=== PATIENT | female | born 1980 | race Caucasian/White ===

== ENCOUNTER → 2023-06-11 15:25 | Outpatient (BNVA) | payer BC, SELFPAY | PROVIDERS: Visit Provider Surgery ==

== ENCOUNTER 2023-08-07 07:51 | Outpatient (AMB) | payer BC, SELFPAY ==
--- OUTSIDE RECORDS SUMMARY | 2023-08-07 07:53 | XMS_ITS | Continuity of Care Document ---
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 Name Role Phone Jannette MONTESINOS, Darwin Primary Care Physician [place] [facility] [place]23 - 03/25/23 [facility] [address] [place] [address]- Attending Physician: Jerson PAREDES, Leonila Pimentel Admitting Physician: Jerson PAREDES, Leonila Pimentel Referring Physician: Renny MONTESINOS, Jania Allergies, Adverse Reactions, Alerts Substance Reaction Severity Status penicillin Active penicillins Active Immunizations Given and Recorded Vaccine Date Status Refusal Reason Boostrix (Tdap) (oldterm) 01/16/16 Given Medications Clindamycin Capsule 150 mg, By Mouth, 4 times a day, Maintenance, 04/05/16 10:54:20 Start Date: 04/05/16 Status: Ordered Colace sodium 100 mg oral capsule 100 mg, 1, capsule, By Mouth, 2 times a day, PRN, # 60 capsule, Refills 0, Tot. Refills 0, Maintenance, for constipation, 03/31/16 7:29:02, Print Requisition Start Date: 03/31/16 Status: Ordered Labetalol = 200 mg, 2 times a day, 0 Refills, Maintenance, 04/05/16 10:53:43 Start Date: 04/05/16 Status: Ordered levothyroxine 75 mcg (0.075 mg) oral tablet 1 tablet = 75 mcg, By Mouth, Daily, # 90 tablet, 0 Refills, Maintenance, 01/16/16 8:45:50, Tablet Start Date: 01/16/16 Status: Ordered Multivitamin, By Mouth, 0 Refills, Maintenance, 01/16/16 8:45:23 Start Date: 01/16/16 Status: Ordered NuvaRing 0.015 mg-0.120 mg vaginal ring 1, each, Vaginally, Every 21 days, # 1 each, Refills 11, Tot. Refills 11, 06/30/08 11:21:46 Start Date: 06/30/08 Status: Ordered NuvaRing 0.015 mg-0.120 mg vaginal ring See Instructions, 1, each, 11, 1, 24, 05/22/08 15:59:49, 05/20/07 16:17:09, 1 each Vaginally every 4 weeks, Print GILLIAN Number, [facility]-Jesica Navarro BOWLING BALL MOLDER [address] [place] [address], Constant Indicator Start Date: 05/20/07 Status: Ordered One Touch Delica Lancets See Instructions, # 1 box, Refills 5, Tot. Refills 5, Maintenance, 1 box = 100 lancets Blood sugar testing four times a day., 01/16/16 14:15:00, Compound Start Date: 01/16/16 Status: Ordered OneTouch Verio Test Strips See Instructions, # 1 box, Refills 5, Tot. Refills 5, Maintenance, 1 box = 100 test strips Blood sugar testing four times a day., 01/16/16 14:15:00, Compound Start Date: 01/16/16 Status: Ordered Spironolactone By Mouth, 0 Refills, Maintenance, 03/04/23 15:22:00 EST, Partial fill upon patient request if the prescription is for a schedule II opioid drug. Start Date: 03/04/23 Status: Ordered Problem List Condition Confirmation Course Effective Dates Status Health St atus Informant Severe obesity Confirmed Active Social History Social History Type Response Smoking Status Never smoker; Tobacc o user in household: No; Type: Cigarettes entered on: 01/16/16 Sex Patient Care team information Care Team Personnel Name: Jannette MONTESINOS, Darwin Position: Reference Physician Member Role: PCP Address: Address: [address] [facility] [place] [address]- Care Team Related Persons Name: EDGARD ORR Address: home [address] [place] [address]
--- OUTSIDE RECORDS SUMMARY | 2023-08-07 07:53 | XMS_ITS | Continuity of Care Document ---
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 Name Role Phone Jannette MONTESINOS, Darwin Primary Care Physician Encounter [facility] [place] Date(s): 03/04/23 - 04/03/23 [facility] [address] [facility] [place] [address]- Attending Physician: Tiana Riggs Admitting Physician: AdmTiana barajas Referring Physician: AdmtrTiana Allergies, Adverse Reactions, Alerts Substance Reaction Severity [...] Vaginally every 4 weeks, Print GILLIAN Number, [facility]-Jesica Navarro VICTORIAN LITERATURE PROFESSOR [address] [place] [address], Constant Indicator Start Date: 05/20/07 Status: Ordered [...] PCP Address: Address: [address] [facility] [place] [address]- Care Team Related Persons Name: EDGARD ORR Address: home [address] [place] [address]
--- NOTE | 2023-08-07 08:14 | A.OFFVIS_ITS ---
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: Details: Start time: 8.08am, End time: 8.48am ?I spent 35 minutes speaking with the patient on the phone plus an additional 5 minutes reviewing and updating records for a total of 40 minutes HPI Comments Details: Previous weight loss efforts: Nutrisystem (100lbs), Weight Watchers, low carb diet Wakes up: 5.45am, Sleeps: 10pm Breakfast: 6.30am (egg sandwich) Lunch: 11am (salad, yogurt, cheese stick) Dinner: 5.30pm (pasta, burgers, take-out often) Snacks: 3-4pm (snack wrap, or cookies), 7pm (ice cream, chips) Exercise: has home treadmill Fluids: Coffee: none, tea: black (1 cup/day), soda: none, juice: none, ETOH: rarely PFSH Medical History (Updated 08/07/23 @ 08:17 by Hair Tao MD) Hypothyroidism Sleep apnea treated with continuous positive airway pressure (CPAP) Hypertension Morbid obesity Surgical History (Updated 08/07/23 @ 08:17 by Hair Tao MD) History of delivery Hx of oral surgery Family History (Updated 06/11/23 @ 15:38 by Irina Jackson CMA) Mother Hypertension Obesity Father No problems noted. Son No problems noted. Physical Exam Vital Signs: BMI result Body Mass Index 74.5 Telehealth Telehealth Telehealth Platform: Telephone Location of provider rendering services: practice address Location of patient: address on file Patient Identification confirmed using: Name, : Yes Telehealth method: voice only Patient verbally consented to treatment: Yes Patient verbally consented to billing insurance company: Yes Patient informed of any privacy concerns related to visit: Yes Minutes spent on Phone/Video with Pt.: 40 Assessment & Plan Assessment & Plan (1) Morbid obesity: Code(s): E66.01 - Morbid (severe) obesity due to excess calories Category: Medical Plan: 1.? Plan for lap sleeve gastrectomy. If diaphragmatic or ventral hernias are present at time of surgery, these will be repaired laparoscopically as well. Risks and complications include possible conversion to an open procedure, anastomotic leak, bleeding requiring transfusion, small bowel obstruction, , DVT and pulmonary embolism, cardiac, or pulmonary complications, as halfway complications such as anastomotic ulcer, insufficient weight loss and vitamin deficiencies. I emphasized the importance of close follow-up, adherence to instructions and good communication. 2. You will receive a link of our software jeffy to generate an individualized nutritional and exercise plan specific for you. Please send me a screenshot of the plans you will generate Meal to include lean meat (beef, fish, pork, turkey, chicken), or slovak yogurt, or egg whites, or beans with a salad with olive oil and fruits (berries, pears, apples, kiwi). Avoid salt, breads, potatoes, rice, pasta, desserts. ?3. If you choose shakes, each shake would be drunk slowly, like coffee in a period of 2 hours. ?4. If you choose bars, cut each bar in 4 pieces and eat each piece in 30min ?to make each bar last 2 hours. ?5. I emphasized the importance of measuring accurately the food portion and measure it when serving the food in plate ?6. The meal portions include a specific number of forks of meat and salad. You always eat the meat portion but you can replace up to half of salad/vegetables portion with rice, potatoes or pasta, or a fruit ?if you like. The less you do it the better weight loss will be. ?7. One full-size fork is what it can be scooped on the fork without falling aside and not what can be bit with the fork. Use regular forks like those you find in a typical restaurant. ?8.? Please send me weight measurements as soon as possible and then once a week. Always include your diet and exercise plan. 9. The best choice would be to purchase a stationary bike, elliptical or treadmill at home that can track calories. Let me know if you do so I can give you an exercise plan. ?10.?It is important of avoiding and for at least 18 months postoperatively and has been discussed at the infosession. ?11. Goal is to lose at least 1.5-2lbs per week ?12. Goal to lose 10% of your weight before surgery, which is about 42lbs. Ultimate weight goal: 378lbs before surgery 13. Please follow the diet plan exactly without any change. If you don't like something about the plan or you feel hungry you need to communicate with me so I can help you revise the plan. You should not change the plan yourself. 14. To be scheduled for EGD to assess your stomach's anatomy. The possibility of biopsies was discussed. Patient needs to avoid use of NSAIDs and aspirin for 1 week prior to EGD. Risks of perforation and? bleeding was discussed with the patient. This will be an outpatient procedure with IV sedation. Orders: Orders Insulin Today E03.9 - Hypothyroidism, unspecified, E66.01 - Morbid (severe) obesity due to excess calories, G47.30 - Sleep apnea, unspecified, I10 - Essential (primary) hypertension H Pylori Breath Test Today E03.9 - Hypothyroidism, unspecified, E66.01 - Morbid (severe) obesity due to excess calories, G47.30 - Sleep apnea, unspecified, I10 - Essential (primary) hypertension IRON PROFILE Today E03.9 - Hypothyroidism, unspecified, E66.01 - Morbid (severe) obesity due to excess calories, G47.30 - Sleep apnea, unspecified, I10 - Essential (primary) hypertension Vitamin B12 and Folate Today E03.9 - Hypothyroidism, unspecified, E66.01 - Morbid (severe) obesity due to excess calories, G47.30 - Sleep apnea, unspecified, I10 - Essential (primary) hypertension Zinc Today E03.9 - Hypothyroidism, unspecified, E66.01 - Morbid (severe) obesity due to excess calories, G47.30 - Sleep apnea, unspecified, I10 - Essential (primary) hypertension C Reactive Protein Today E03.9 - Hypothyroidism, unspecified, E66.01 - Morbid (severe) obesity due to excess calories, G47.30 - Sleep apnea, unspecified, I10 - Essential (primary) hypertension Vitamin B1 Today E03.9 - Hypothyroidism, unspecified, E66.01 - Morbid (severe) obesity due to excess calories, G47.30 - Sleep apnea, unspecified, I10 - Essential (primary) hypertension Vitamin A Today E03.9 - Hypothyroidism, unspecified, E66.01 - Morbid (severe) obesity due to excess calories, G47.30 - Sleep apnea, unspecified, I10 - Essential (primary) hypertension Ferritin Today E03.9 - Hypothyroidism, unspecified, E66.01 - Morbid (severe) obesity due to excess calories, G47.30 - Sleep apnea, unspecified, I10 - Essential (primary) hypertension Vitamin D 25-OH Total Today E03.9 - Hypothyroidism, unspecified, E66.01 - Morbid (severe) obesity due to excess calories, G47.30 - Sleep apnea, unspecified, I10 - Essential (primary) hypertension US abdomen comp w elastography Today E03.9 - Hypothyroidism, unspecified, E66.01 - Morbid (severe) obesity due to excess calories, G47.30 - Sleep apnea, unspecified, I10 - Essential (primary) hypertension XR chest 2V Today E03.9 - Hypothyroidism, unspecified, E66.01 - Morbid (severe) obesity due to excess calories, G47.30 - Sleep apnea, unspecified, I10 - Essential (primary) hypertension ECG 12 lead EKG Today E03.9 - Hypothyroidism, unspecified, E66.01 - Morbid (severe) obesity due to excess calories, G47.30 - Sleep apnea, unspecified, I10 - Essential (primary) hypertension FL upper GI w air Today E03.9 - Hypothyroidism, unspecified, E66.01 - Morbid (severe) obesity due to excess calories, G47.30 - Sleep apnea, unspecified, I10 - Essential (primary) hypertension Hemoglobin A1c Today E03.9 - Hypothyroidism, unspecified, E66.01 - Morbid (severe) obesity due to excess calories, G47.30 - Sleep apnea, unspecified, I10 - Essential (primary) hypertension Complete Blood Count Auto Diff Today E03.9 - Hypothyroidism, unspecified, E66.01 - Morbid (severe) obesity due to excess calories, G47.30 - Sleep apnea, unspecified, I10 - Essential (primary) hypertension Lipid Panel Today E03.9 - Hypothyroidism, unspecified, E66.01 - Morbid (severe) obesity due to excess calories, G47.30 - Sleep apnea, unspecified, I10 - Essential (primary) hypertension Comprehensive Met. Panel Today E03.9 - Hypothyroidism, unspecified, E66.01 - Morbid (severe) obesity due to excess calories, G47.30 - Sleep apnea, unspecified, I10 - Essential (primary) hypertension TSH reflex Free T4 Today E03.9 - Hypothyroidism, unspecified, E66.01 - Morbid (severe) obesity due to excess calories, G47.30 - Sleep apnea, unspecified, I10 - Essential (primary) hypertension Referrals Nutrition/Dietitian Referral E03.9 - Hypothyroidism, unspecified, E66.01 - Morbid (severe) obesity due to excess calories, G47.30 - Sleep apnea, unspecified, I10 - Essential (primary) hypertension Behavioral Health Referral E03.9 - Hypothyroidism, unspecified, E66.01 - Morbid (severe) obesity due to excess calories, G47.30 - Sleep apnea, unspecified, I10 - Essential (primary) hypertension
[2023-08-07 08:24] VITALS: BMI 74.5
== END 2023-08-07 08:48 | disposition home or self-care (01) ==
LOC: HO.HBS 07:51
PROVIDERS: Visit Provider Surgery
DX: E66.01 Morbid (severe) obesity due to excess calories (principal); Z68.45 Body mass index [BMI] 70 or greater, adult
CPT/HCPCS: 99443

== ENCOUNTER → 2023-08-07 07:51 | Outpatient (BNVA) | payer BC, SELFPAY | PROVIDERS: Visit Provider Surgery ==

== ENCOUNTER 2023-08-12 08:50 | Outpatient (REF) | payer BC, SELFPAY ==
--- NOTE | ~2023-08-12 | XR_ITS ---
EXAMINATION: XR CHEST CLINICAL INFORMATION: Morbid obesity. COMPARISON: None available. TECHNIQUE: 2 views of the chest were obtained. FINDINGS: There is abnormal soft tissue density overlying the left lung apex and suprahilar region. This is likely related to the patient's hair braid which can be partially seen overlying the chest. Otherwise, the chest is unremarkable. Some mild degenerative changes are present in the spine. XR/XR chest 2V IMPRESSION: No acute intrathoracic disease. Abnormal soft tissue density overlying the left lung apex and suprahilar region. This is likely related to the patient's hair braid. A repeat PA view of the chest without overlying hair is recommended to exclude underlying malignancy.
[2023-08-12 09:12] LABS: MANUAL DIFF FLAG NO
--- NOTE | 2023-08-12 09:17 | ECG_ITS ---
Test Reason : MORBID OBESITY Blood Pressure : / mmHG Vent. Rate : 085 BPM Atrial Rate : 085 BPM P-R Int : 168 ms QRS Dur : 080 ms QT Int : 372 ms P-R-T Axes : 053 009 046 degrees QTc Int : 442 ms Normal sinus rhythm Normal ECG No previous ECGs available Referred By: Hair Tao Electronically Signed By:CAMERON GA MD
[2023-08-12 09:41] LABS: Basophils Absolute Auto 0.1 X10*3/uL (0.0-0.2); Basophils Percent Auto 0.8 % (0-2); Eosinophils Absolute Auto 0.2 X10*3/uL (0.0-0.4); Eosinophils Percent Auto 1.2 % (0-4); Hematocrit 39.6 % (37.0-47.0); Hemoglobin 13.2 g/dl (12.0-16.0); Imm Gran Abs Auto 0.16 X10*3/uL (0.00-0.03); Imm Gran Pct Auto 1.2 % (0.0-0.4); Lymphocytes Absolute Auto 3.5 X10*3/uL (1.2-4.9); Lymphocytes Percent Auto 26.8 % (20-40); Mean Corpuscular HGB Conc 33.3 g/dl (31.0-35.0); Mean Corpuscular Hemoglobin 29.8 pg (27.0-33.0); Mean Corpuscular Volume 89.4 fL (80.0-98.0); Monocytes Absolute Auto 0.8 X10*3/uL (0.1-1.2); Monocytes Percent Auto 5.9 % (2-11); Neutrophils Absolute Auto 8.3 x10*3/uL (2.0-8.3); Neutrophils Percent Auto 64.1 % (45-73); Platelet Count 281 X10*3/uL (160-400); Red Blood Count 4.43 X10*6/uL (4.20-5.50); Red Cell Distribution Width 13.2 % (11.0-16.0); White Blood Count 12.9 X10*3/uL (4.8-10.8)
[2023-08-12 09:43] LABS: Estimated Average Glucose 114 mg/dL; Hemoglobin A1c % 5.6 % (<6.0)
[2023-08-12 10:14] LABS: Alanine Aminotransferase 20 U/L (0-31); Albumin Level 4.4 g/dL (3.5-5.0); Alkaline Phosphatase 82 U/L (39-117); Anion Gap 18 (12-20); Aspartate Amino Transferase 17 U/L (5-31); Bilirubin Total 0.6 mg/dL (0.0-1.0); Blood Urea Nitrogen 18 mg/dL (9-16); C Reactive Protein 1.04 mg/dL (< or = 0.50); Carbon Dioxide 25 mmol/L (22-29); Chloride 103 mmol/L (96-108); Cholesterol 222 mg/dL (<200); Estimated Glomerular Filt Rate > 60; Glucose Random 119 mg/dL (60-115); HDL Cholesterol 41 mg/dL (>40); Iron 63 mcg/dL (30-160); LDL Cholesterol Calculated 153 mg/dL (<100); Percent Iron Saturation 23 % (15-50); Potassium 4.5 mmol/L (3.3-5.1); Sodium 141 mmol/L (135-145); Total Iron Binding Capacity 280 mcg/dL (228-428); Total Protein 8.3 g/dL (6.5-8.0); Triglycerides 141 mg/dL (<150); Unsaturated Iron Binding 217 ug/dL
[2023-08-12 10:41] LABS: Ferritin 174 ng/mL (10-250); TSH reflex Free T4 2.42 uIU/mL (0.32-4.0); Vitamin D 25-OH Total 21.9 ng/mL (>30)
[2023-08-12 11:04] LABS: Insulin 21 uU/mL (2-29)
[2023-08-12 11:08] LABS: Vitamin B12 369 pg/mL (200-900)
[2023-08-15 18:47] LABS: Zinc 71 mcg/dL (60-130)
[2023-08-16 18:48] LABS: Vitamin A 37 mcg/dL (38-98)
[2023-08-20 14:33] LABS: Vitamin B1 12 nmol/L (8-30)
== END 2023-08-12 08:51 | disposition home or self-care (01) ==
LOC: HO.LAB 08:50
PROVIDERS: PCP Internal Medicine; Visit Provider Surgery
DX: E66.01 Morbid (severe) obesity due to excess calories (principal); I10 Essential (primary) hypertension; G47.30 Sleep apnea, unspecified; E03.9 Hypothyroidism, unspecified
CPT/HCPCS: 36415; 71046; 80053; 80061; 82306; 82607; 82728; 82746; 83036; 83525; 83540; 84425; 84443; 84590; 84630; 85025; 86140; 93005

== ENCOUNTER → 2023-08-12 09:17 | Outpatient (BNV) | payer BC, SELFPAY | PROVIDERS: PCP Internal Medicine; Visit Provider Internal Medicine Cardiovascular Disease | DX: E66.01 Morbid (severe) obesity due to excess calories (principal); Z01.810 Encounter for preprocedural cardiovascular examination | CPT/HCPCS: 93010 ==

== ENCOUNTER 2023-08-26 08:08 | Outpatient (REF) | payer BC, SELFPAY ==
--- NOTE | ~2023-08-26 | US_ITS ---
EXAMINATION: US COMPLETE ABDOMEN WITH LIVER ELASTOGRAPHY CLINICAL INFORMATION: Morbid obesity. COMPARISON: None available. TECHNIQUE: Real-time imaging of the abdominal viscera. Noninvasive ultrasound liver fibrosis assessment is performed using Reggie ElastPQ point quantification shear wave elastography (2D-SWE) with a C5-2 MHz transducer. Multiple elastography samples are obtained. FINDINGS: PANCREAS: . The visualized pancreatic head and body are normal in appearance. The remainder of the pancreas is obscured from visualization by the overlying bowel gas. ABDOMINAL AORTA: The proximal, middle, and distal aortic segments are normal in caliber. INFERIOR VENA CAVA: Visualized portions are normal. LIVER: . The liver is enlarged with increased echogenicity measuring 22.3 cm in greatest length. No focal lesion or intrahepatic biliary duct dilatation. The right lobe measures 22.3 cm in length. The left lobe measures 15.9 cm in length. Portal flow is towards the liver (hepatopetal). Shear wave liver elastography median stiffness is 1.24 m/s (reference: normal median stiffness is 1.3 m/s or less). IQR/median stiffness to assess sampling precision is 0.17 (reference: good quality data set is IQR/median stiffness of 0.15 or less). GALLBLADDER: The gallbladder appears to be filled with stones as only shadowing is seen in the region of the gallbladder fossa without a gallbladder identified. COMMON BILE DUCT: Normal in caliber measuring 0.5 cm in diameter. RIGHT KIDNEY: No hydronephrosis. No renal calculi or focal parenchymal lesions. The kidney measures 14.0 cm in maximum dimension. LEFT KIDNEY: No hydronephrosis. No renal calculi or focal parenchymal lesions. The kidney measures 13.3 cm in maximum dimension. SPLEEN: Normal. The spleen is enlarged measuring 11.5 cm in maximum dimension. FREE FLUID: None. US/US abdomen comp w elastography IMPRESSION: 1. Enlarged fatty liver. 2. Liver elastography: Although measurements suggest a high probability of normal liver stiffness, there is statistical variability of the sampling which decreases accuracy. REFERENCE: Society of Radiologists in Ultrasound Liver Stiffness Thresholds (2019): LIVER STIFFNESS THRESHOLDS: *Liver Stiffness equal or less than 1.3 m/s: High probability of being normal. *Liver Stiffness less than 1.7 m/s: In the absence of other known clinical signs, rules out compensated advanced chronic liver disease. *Liver Stiffness 1.7-2.1 m/s: Suggestive of compensated advanced chronic liver disease but need further test for confirmation. *Liver Stiffness over 2.1 m/s: Rules in compensated advanced chronic liver disease. *Liver Stiffness over 2.4 m/s: Suggestive of clinically significant portal hypertension. QUALITY OF DATA SET: *IQR/Median value equal or less than 0.15 implies a quality data set. *IQR/Median value over 0.15 implies a poor quality data set. SIGNIFICANT CHANGE FROM PRIOR EXAM: Significant change if liver stiffness measurement is 10% or greater from prior exam. OTHER CONSIDERATIONS: The stage of liver fibrosis may be overestimated in the setting of acute hepatitis, liver inflammation, elevated liver function tests, hepatic vascular congestion, obstructive cholestasis, non-fasting state, and infiltrative diseases such as amyloidosis and lymphoma. In some patients with NAFLD, the liver stiffness thresholds for compensated advanced chronic liver disease may be lower. In causes other than viral hepatitis and NAFLD, liver stiffness thresholds are not well established.
== END 2023-08-26 08:09 | disposition home or self-care (01) ==
LOC: HO.US 08:08
PROVIDERS: PCP Internal Medicine; Visit Provider Surgery
DX: E66.01 Morbid (severe) obesity due to excess calories (principal); I10 Essential (primary) hypertension; E03.9 Hypothyroidism, unspecified; G47.30 Sleep apnea, unspecified
CPT/HCPCS: 76700; 76981

== ENCOUNTER 2023-08-31 14:10 | Outpatient (AMB) | payer BC, SELFPAY ==
--- NOTE | 2023-08-31 13:06 | MHC.WMTHER ---
Intake Intake Visit Reasons: (TV) BH Intake Allergies Penicillins Allergy (Mild, Verified 08/07/23 08:14) rash REPLACED BY [facility] Medical History (Updated 08/18/23 @ 17:33 by Hair Tao MD) Hypothyroidism Sleep apnea treated with continuous positive airway pressure (CPAP) Hypertension Morbid obesity Surgical History (Updated 08/07/23 @ 08:17 by Hair Tao MD) History of delivery Hx of oral surgery Family History (Updated 06/11/23 @ 15:38 by Irina Jackson CMA) Mother Hypertension Obesity Father No problems noted. Son No problems noted. Behavioral Health Assessment Weight Management Therapy Therapy Notes Details Patient is looking to have weight loss surgery to help improve her health and quality of life. She reported one appointment in the past with a therapist and no mental health history. She denied a history of problems with drugs or alcohol. No legal issues and no eating disorder symptoms. Presenting Concerns Referral Source provider Reason for referral weight loss surgery evaluation Precipitating Event obesity Living Situation Current Living Situation Own At risk of losing current housing? No Satisfied with current living situation? Yes Comments Patient lives with her and 7 year old son. Food/Weight/Diet Expectations of change weight loss and maintenance History/Relationship with food Patient stated that she uses food for reward, will often go with what is convenient such as takeout or going to restaurants, also would under eat during the day at work and then would go home and be ravenous . Breakfast sandwiches from [employer] or frozen ones she would buy, premade salads and yogurt, after work would stop at [employer] again for snack wrap and donut, or chips at home, then dinner would be takeout, sometimes would snack before bed on chips or ice cream. History/Relationship with weight Pt was at her heaviest one month ago. She reported that she has struggled with weight gain since she hit puberty. History/Relationship with dieting 95lbs on Nutrisystem before she had her son. Binge Eating Do you frequently eat large amounts of food in short periods of time, not feeling physically hungry? No Do you feel out of control when you eat a large amount of food in a short period of time? No Do you eat large amounts of food rapidly and typically alone? No Night Eating Do you wake up at least once during the night to eat? No If you wake up in the night, do you find that it is necessary to eat something in order to fall back asleep? No Do you have little or no appetite in the morning and feel very hungry in the evening, often overeating between dinner and when you go to bed? No Social History Family history and relationship Patient is and has one child who is 7 years old. Parental/Familial farm or ranch animal caretaker obligations 7 year old son Developmental history and status no issues Social support , sister, mom (who has had weight loss surgery). Cultural/Ethnic information Legal Involvement and History Current or historical involvement with the legal system? none Education Highest grade completed college Preferred learning style Auditory, Verbal, Written, Learn by doing and Visual Currently enrolled in educational program? No Interested in further educational program? 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 No Financial Situation Describe current financial situation Comfortable Financial assistance? None Service Service? No Mental Health and Addiction Treatment Current/Past substance abuse? No Comments n/a Current/Past addictive behavior concerns? No Psychiatric history n/a Medical and Physical Health Summary Physical exam in the last year? Yes Pain Screening Current pain? No Pain in the last few months? No Medications Is the patient compliant with medications? Yes Does the patient have Ferreira Guardian in place? Not applicable Does the patient use complimentary health approaches? Yes Trauma/Abuse History History of trauma? No Questionnaires PHQ-9 Over the last 2 weeks, how often have you been bothered by any of the following problems? 1. Little interest or pleasure in doing things: several days 2. Feeling down, depressed, or hopeless: several days 3. Trouble falling or staying asleep, or sleeping too much: not at all 4. Feeling tired or having little energy: more than half the days 5. Poor appetite or overeating: nearly every day 6. Feeling bad about yourself - or that you are a failure or have let yourself or your family down: not at all 7. Trouble concentrating on things, such as reading the newspaper or watching television: not at all 8. Moving or speaking so slowly that other people could have noticed. Or the opposite - being so fidgety or restless that you have been moving around a lot more than usual: not at all 9. Thoughts that you would be better off or of hurting yourself in some way: not at all Total score: 7 Source: Developed by Drs. Antoine Chavez, Laura Glaicia, Román Scott and colleagues, with an educational williams from [employer]. Assessment & Plan Assessment & Plan (1) Morbid obesity: Code(s): E66.01 - Morbid (severe) obesity due to excess calories (2) Sleep apnea treated with continuous positive airway pressure (CPAP): Code(s): G47.30 - Sleep apnea, unspecified Plan Patient does not have any serious barriers or mental health issues, she is cleared for surgery when ready. Coding Level of Care Code Tele Psy Diag Eval (82812) Diagnoses Morbid obesity E66.01 Sleep apnea treated with continuous positive airway pressure (CPAP) G47.30 Time Spent (min) 45
== END 2023-08-31 15:42 | disposition home or self-care (01) ==
LOC: HO.HBST 14:11
PROVIDERS: PCP Internal Medicine; Visit Provider Counselor Mental Health
DX: E66.01 Morbid (severe) obesity due to excess calories (principal); G47.30 Sleep apnea, unspecified
CPT/HCPCS: 90791

== ENCOUNTER → 2023-08-31 14:10 | Outpatient (BNVA) | payer BC, SELFPAY | PROVIDERS: PCP Internal Medicine; Visit Provider Counselor Mental Health | DX: E66.01 Morbid (severe) obesity due to excess calories (principal); G47.30 Sleep apnea, unspecified ==

== ENCOUNTER 2023-09-07 10:04 | Outpatient (AMB) | payer BC, SELFPAY ==
--- NOTE | 2023-09-07 09:32 | MHC.OFFVISWM ---
VS Expanded 09/07/23 09:33 Height 5 ft 3 in Weight 409 lb 6.4 oz BMI 72.5 Intake Visit Reasons: TV SWL F/U Allergies Penicillins Allergy (Mild, Verified 08/07/23 08:14) rash HPI Comments Details: 42 yo female who was first seen by Dr Tao, 08/07/23 with a weight of 420.8 pounds and a BMI of 74.5 Weight today is 409.4 pounds with a BMI of 72.5. She has lost 11.4 pounds or 2.7 % TBWL. She states that things have been challenging with special events. She had fathers day and cannot keep leftovers in the house. She has been planning to have a healthier choice for her birthday coming up. She is supposed to be eating protein bars but having trouble with the sweet bars. She has been choosing things other than the protein bars. She states she is not using the jeffy. She tried pure protein and didn't like it. Meal plan: Pure protein bar or quest bar egg salad or rotisserie chicken or protein bar, not measuring quantity of food big salad with grilled chicken or imitation crab sticks, not measuring quantity +/- protein bar drinking 48 oz water, no soda or juice Exercise plan: treadmill at home, 1 x per week, speed 0.6, no incline outdoor walk, [facility] Medical History (Updated 08/18/23 @ 17:33 by Hair Tao MD) Hypothyroidism Sleep apnea treated with continuous positive airway pressure (CPAP) Hypertension Morbid obesity Surgical History (Updated 08/07/23 @ 08:17 by Hair Tao MD) History of delivery Hx of oral surgery Family History (Updated 06/11/23 @ 15:38 by Irina Jackson CMA) Mother Hypertension Obesity Father No problems noted. Son No problems noted. Telehealth Telehealth Telehealth Platform: Telephone Location of provider rendering services: practice address Location of patient: address on file Patient Identification confirmed using: Name, : Yes Telehealth method: voice only Patient verbally consented to treatment: Yes Patient verbally consented to billing insurance company: Yes Patient informed of any privacy concerns related to visit: Yes Minutes spent on Phone/Video with Pt.: 20 Assessment & Plan Assessment & Plan (1) Morbid obesity: Code(s): E66.01 - Morbid (severe) obesity due to excess calories Category: Medical Plan: Discussed multiple issues, including following the jeffy as recommended. Additionally, discussed that she can certainly modify the plan if it is not working for her although encouraged to modify it within the jeffy and not make her own independent choices. Discussed measuring food quantities accurately. Discussed increasing exercise to daily, additionally tracking calories, additionally using [employer] jeffy for measuring time, distance, calories when walking outside. Patient was very appreciative of the information and will follow up in the office in approximately 3 weeks.
[2023-09-07 09:33] VITALS: BMI 72.5
== END 2023-09-07 10:10 | disposition home or self-care (01) ==
LOC: HO.HBS 10:04
PROVIDERS: PCP Internal Medicine; Visit Provider Physician Assistant Surgical
DX: E66.01 Morbid (severe) obesity due to excess calories (principal); Z68.45 Body mass index [BMI] 70 or greater, adult
CPT/HCPCS: 99442

== ENCOUNTER → 2023-09-07 10:04 | Outpatient (BNVA) | payer BC, SELFPAY | PROVIDERS: PCP Internal Medicine; Visit Provider Physician Assistant Surgical ==

== ENCOUNTER 2023-09-17 07:58 | Day surgery (SDC) | payer BC, SELFPAY ==
[2023-09-15 14:06] VITALS: BMI 72.4
--- NOTE | 2023-09-15 15:15 | HO.ANESPROP2 ---
Documented by User: Lynn Rivera NP 09/16/23 09:37 HPI - Anesthesia Eval Consult details Narrative: 42yo F for Upper Endoscopy BMI 72.5 PMFSH Active Problems Active Problems: All Active Problems Vitamin B12 deficiency (Acute) Vitamin A deficiency (Acute) Vitamin D deficiency (Acute) Hypothyroidism (Acute) Sleep apnea treated with continuous positive airway pressure (CPAP) (Acute) Hypertension (Acute) Morbid obesity (Acute) Past Medical History Medical History Hypothyroidism Sleep apnea treated with continuous positive airway pressure (CPAP) Hypertension Morbid obesity Family History Family History Mother Hypertension Obesity Father No problems noted. Son No problems noted. Surgical History Surgical History History of delivery Hx of oral surgery Social History Social History Patient Tobacco Use Status: Former Tobacco user Use of substances other than those prescribed or required for medical reasons: No Are you DNR?: No Advance Directives: No Advance Directives Information Provided: Yes Meds Allergies Allergy/AdvReac Type Severity Reaction Status Date / Time Penicillins Allergy Mild rash Verified 08/07/23 08:14 Home Medications ?Medication ?Instructions ?Recorded ?Confirmed ?Last Taken ?Type irbesartan 150 1 tab PO DAILY 06/11/23 08/07/23 Unknown History mg-hydrochlorothiazide 12.5 mg tablet levonorgestrel 21 mcg/24 hr (up to intrauterine 06/11/23 08/07/23 Unknown History 8 years) 52 mg intrauterine device (Mirena) levothyroxine 150 mcg tablet 150 mcg PO DAILY 06/11/23 09/17/23 09/17/23 History spironolactone 25 mg tablet 25 mg PO DAILY 06/11/23 08/07/23 Unknown History Exam Height,Weight and Vital Signs: Height 5 ft 3 in Weight 185.519 kg Pertinent Lab Results Pertinent Lab Results: Laboratory Tests 08/12/23 09:10 WBC 12.9 H Hgb 13.2 Hct 39.6 Plt Count 281 Sodium 141 Potassium 4.5 Chloride 103 Carbon Dioxide 25 BUN 18 H Creatinine 0.84 Narrative Narrative: EKG 08/2023 Vent. Rate : 085 BPM Atrial Rate : 085 BPM P-R Int : 168 ms QRS Dur : 080 ms QT Int : 372 ms P-R-T Axes : 053 009 046 degrees QTc Int : 442 ms Normal sinus rhythm Normal ECG No previous ECGs available Assessment and Plan Assessment Anesthesia Assessment: Chart Reviewed Documented by User: Shy Gleason MD 09/17/23 11:18 PMFSH Past Medical History Medical History Hypothyroidism Sleep apnea treated with continuous positive airway pressure (CPAP) Hypertension Morbid obesity Family History Family History Mother Hypertension Obesity Father No problems noted. Son No problems noted. Surgical History Surgical History History of delivery Hx of oral surgery History of Problems with Anesthesia: No Social History Social History Patient Tobacco Use Status: Former Tobacco user Use of substances other than those prescribed or required for medical reasons: No Are you DNR?: No Advance Directives: No Advance Directives Information Provided: Yes Meds Allergies Allergy/AdvReac Type Severity Reaction Status Date / Time Penicillins Allergy Mild rash Verified 08/07/23 08:14 Home Medications ?Medication ?Instructions ?Recorded ?Confirmed ?Last Taken ?Type irbesartan 150 1 tab PO DAILY 06/11/23 08/07/23 Unknown History mg-hydrochlorothiazide 12.5 mg tablet levonorgestrel 21 mcg/24 hr (up to intrauterine 06/11/23 08/07/23 Unknown History 8 years) 52 mg intrauterine device (Mirena) levothyroxine 150 mcg tablet 150 mcg PO DAILY 06/11/23 09/17/23 09/17/23 History spironolactone 25 mg tablet 25 mg PO DAILY 06/11/23 08/07/23 Unknown History Exam Airway Mallampati Class: III TM Dist: >3cm Neck ROM: Full Loose/Missing/Broken Teeth: No Heart: RRR Lungs: CTA Assessment and Plan Final Anesthetic Review History of Problems with Anesthesia: No NPO: Yes ASA Class: III Final Preanesthetic Review: Meds/Allgs Chart Reviewed, Consent Obtained/Reviewed and Anes Risks/Benef Reviewed Patient Risk: High Procedure Risk: Intermediate Anesthetic Plan Anesthetic Plan: MAC: Disposition: Standard PACU
[2023-09-17 08:09] VITALS: BMI 72.3
[2023-09-17 08:21] VITALS: BP 151/90; PULSE 93; RESP 18; TEMP 36.2; O2SAT 95
[2023-09-17 08:22] LABS: UPreg QC Valid YES; Urine Pregnancy NEGATIVE (NEGATIVE)
[2023-09-17] MEDS: Lactated Ringers 1,000 ML 80 ML IVCONT (08:34)
--- NOTE | 2023-09-17 10:40 | MHC.SHP ---
Pre-Procedural Eval Section A - 24 Hr Update-Section A only Date of Service: 09/17/23 The patient is an INPATIENT: No The patient has been examined within 24 hours of the surgical procedure. The History & Physical has been completed within 30 days and I have reviewed it.: No Section B - Complete if H&P > 30 days Chief Complaint: Morbid (severe) obesity due to excess calories Relevant Family History (Specify if Yes): No Relevant Social History: None Present Medications: None Medical History: No relevant PMH History of Previous Operations: No relevant previous surgery Allergies: Allergies Allergy/AdvReac Type Severity Reaction Status Date / Time Penicillins Allergy Mild rash Verified 08/07/23 08:14 Review of Systems Sugical H&P ROS: Negative: Constitution, Cardiovascular, Respiratory, Neurological, Psychiatric, Hem-Onc, Allergic/Immunologic, Gastrointestinal, Genitourinary, Musculoskeletal, Integumentary, Endocrine and Eyes/Ears/Nose/Throat Exam Surgical H&P Exam: Normal: HEENT, Normal: Heart, Normal: Lungs, Normal: Extremities, Normal: Abdomen, Normal: Skin and Normal: Neurological Plan Diagnosis/Plan: Unchanged (EGD to assess the anatomy of the stomach. Risks of bleeding and perforation were discussed with the patient and she is in agreement with the plan.) I have reviewed the history and physical and performed a pertinent physical examination on my patient. No changes have occurred unless specified. Time Spent With Patient Time: Total time managing care of this patient today ____ minutes.
--- NOTE | 2023-09-17 10:44 | P.BOP_ITS ---
Brief Operative Note Date of Service: 09/17/23 Pre-op diagnosis: Morbid obesity Post-op diagnosis: same Procedure: PROCEDURE DATE: 09/17/2023 PREOPERATIVE DIAGNOSIS: GERD POSTOPERATIVE DIAGNOSIS: ?Same as above. 1) small hiatal hernia PROCEDURE: [id number] with biopsies Surgeon: Cori Tao M.D.. Ph.D. Dairy Specialist: None ? Anesthesia: IV sedation Estimated blood loss: ?Minimal FINDINGS AND PROCEDURE: ? OPERATIVE INDICATIONS: ?The patient is a 42 year old female known to me who is interested in bariatric surgery. Therefore the anatomy of her stomach needs to be assessed. Based on this information I recommended an upper endoscopy. Risks and complications of the surgery were discussed with the patient in advance particularly the possibility of perforation or bleeding that may require surgical intervention. The patient understood the risks and was in agreement with the plan. ? PROCEDURE: After informed consent was obtained by the patient, the patient was ?transferred to the Operating Room and was placed in the supine position.? After successful induction of IV sedation, a mouth block was inserted and the patient was placed in the left lateral decubitus position. An upper endoscopy was performed next, the oropharynx and esophagus appeared within the normal limits. There was a 2cm hiatal hernia. The z-line was smooth. Two biopsies were obtained from the distal esophagus 2-3 cm proximal to the GE junction and two additional biopsies from the GE junction. The stomach was entered and it appeared to be of normal size. There was no gastritis. There was no stricture or ulcer. A biopsy was obtained from the gastric fundus and antrum. No significant bleeding was noted from any of the biopsy sites. Retroflexion of the scope confirned the presence of a small diaphragmatic hernia. The scope was then advanced into the duodenum which appeared to be normal as well. At that point the duodenum ?and the stomach were decompressed and the scope was withdrawn from the patient's mouth. The patient extubated and was transferred in stable condition to the Recovery Room for further care. I was present and performed all steps of the procedure. There were no residents to assist with this case. David Tao M.D., Ph.D. Surgeon: Hair Tao MD Anesthesia: MAC Was an Dairy Specialist used for this Procedure?: No Estimated blood loss (mL): 0 IV fluids (mL): 400 Urine output (mL): 0 (No Guy to record output) Pathology: other (1) antrum x1, 2) fundus x1, 3) GE junction x2, 4) distal esophagus x2) Condition: stable Disposition: PACU
[2023-09-17 11:05] VITALS: BP 138/83; PULSE 82; RESP 20; TEMP 36.6; O2SAT 100
[2023-09-17 11:20] VITALS: BP 154/90; PULSE 78; RESP 20; O2SAT 100
[2023-09-17 11:35] VITALS: BP 151/88; PULSE 79; RESP 20; TEMP 36.2; O2SAT 98
== END 2023-09-17 12:09 | disposition home or self-care (01) ==
PROVIDERS: Nurse Practitioner; PCP Internal Medicine; Visit Provider Surgery
PROC: 0DJ08ZZ Inspection of Upper Intestinal Tract, Via Natural or Artificial Opening Endoscopic (ICD-10-PCS; CPT 43235; principal; 2023-09-17 10:20)
DX: K21.9 Gastro-esophageal reflux disease without esophagitis (principal); E66.01 Morbid (severe) obesity due to excess calories; Z68.45 Body mass index [BMI] 70 or greater, adult; K44.9 Diaphragmatic hernia without obstruction or gangrene; I10 Essential (primary) hypertension; E03.9 Hypothyroidism, unspecified; G47.30 Sleep apnea, unspecified; Z99.89 Dependence on other enabling machines and devices; Z88.0 Allergy status to penicillin
CPT/HCPCS: 43239; 81025; 88305; 88313; 88342; J2250; J2704; J2795

== ENCOUNTER → 2023-09-17 07:58 | Outpatient (BNV) | payer BC, SELFPAY | PROVIDERS: PCP Internal Medicine; Visit Provider Surgery | DX: K44.9 Diaphragmatic hernia without obstruction or gangrene (principal) | CPT/HCPCS: 43239 ==

== ENCOUNTER 2023-09-28 12:20 | Outpatient (AMB) | payer BC, SELFPAY ==
--- NOTE | 2023-09-28 11:59 | MHC.OFFVISWM ---
VS Expanded 09/28/23 12:00 Height 5 ft 3 in Weight 401 lb 6.4 oz BMI 71.1 Body Fat % 70 Body Fat Mass 280.9 Fat Free Mass 120.4 Visceral Fat Rating 30 Body Water % 20.5 Body Water Mass 82.2 Muscle Mass/Score 113.2 Basal Metabolic Rate/Score 1,550 Intake Visit Reasons: TV SWL F/U Allergies Penicillins Allergy (Mild, Verified 08/07/23 08:14) rash HPI Comments Details: 42 yo female who was first seen by Dr Tao, 08/07/23 with a weight of 420.8 pounds and a BMI of 74.5 Last weight on 09/07/23 was 409.4 pounds with a BMI of 72.5. Weight today is 401.4 pounds with a BMI of 71.1 She has lost 19.4 pounds or 4.6 % TBWL. She states that things have been challenging with special events. She had fathers day and cannot keep leftovers in the house. She has been planning to have a healthier choice for her birthday coming up. She is supposed to be eating protein bars but having trouble with the sweet bars. She has been choosing things other than the protein bars. She states she is using the jeffy. She has found a shake that she likes. Was on vacation this past month. Meal plan: Celebrate rebuild 2 scoops w 1 % milk another shake or pure protein bar protein and veg not measuring by forks, using oz 6 oz of protein and 6 of veg +/- another shake or bar drinking 48 oz water, no soda or juice Exercise plan: treadmill at home, 1 x per week, speed 0.6, no incline outdoor walk, loop by her home, 3 x per week. has [employer] jeffy but not yet using. 20 min to walk, [facility] Medical History Hypothyroidism Sleep apnea treated with continuous positive airway pressure (CPAP) Hypertension Morbid obesity Surgical History History of delivery Hx of oral surgery Family History Mother Hypertension Obesity Father No problems noted. Son No problems noted. Social History Patient Tobacco Use Status: Former Tobacco user Telehealth Telehealth Telehealth Platform: Telephone Location of provider rendering services: practice address Location of patient: address on file Patient Identification confirmed using: Name, : Yes Telehealth method: voice only Patient verbally consented to treatment: Yes Patient verbally consented to billing insurance company: Yes Patient informed of any privacy concerns related to visit: Yes Minutes spent on Phone/Video with Pt.: 15 Assessment & Plan Assessment & Plan (1) Morbid obesity: Code(s): E66.01 - Morbid (severe) obesity due to excess calories Category: Medical Plan: Overall, has made improvements. She is now following the meal plan more consistently. She does have the [employer] jeffy but has not yet used it. Discussed the importance of doing that and exercising regularly, and consistently. I suggested that she use her treadmill every day in addition to her walk that she is doing. Recommend tracking her calories using the [employer] jeffy. follow-up in the office in 4 weeks.
[2023-09-28 12:00] VITALS: BMI 71.1
== END 2023-09-28 12:25 | disposition home or self-care (01) ==
LOC: HO.HBS 12:21
PROVIDERS: PCP Internal Medicine; Visit Provider Physician Assistant Surgical
DX: E66.01 Morbid (severe) obesity due to excess calories (principal); Z68.45 Body mass index [BMI] 70 or greater, adult
CPT/HCPCS: 99442

== ENCOUNTER → 2023-09-28 12:20 | Outpatient (BNVA) | payer BC, SELFPAY | PROVIDERS: PCP Internal Medicine; Visit Provider Physician Assistant Surgical ==

== ENCOUNTER 2023-10-06 08:57 | Outpatient (REF) | payer BC, SELFPAY ==
--- NOTE | ~2023-10-06 | FL_ITS ---
EXAMINATION: XR FLUOROSCOPY UPPER GI WITH AIR CLINICAL INFORMATION: Preop evaluation prior to bariatric surgery . COMPARISON: None . TECHNIQUE: Fluoroscopic air contrast upper GI examination was performed utilizing standard techniques with thin and thick barium and effervescent granules. Numerous spot images were obtained. FINDINGS: Dual and single contrast images of the esophagus demonstrate normal caliber, contour, and mucosal pattern. No evidence of stricture, mass, or ulcerations identified. Esophageal peristalsis is moderately disorganized. No evidence of hiatus hernia identified. A small amount of gastroesophageal reflux is seen in the midesophagus. Dual contrast and single contrast images of the stomach demonstrated a normal contour. Evaluation of the gastric mucosa is limited due to patient's body habitus. No obvious mass, ulcerations, or other abnormalities are seen. Contrast freely passed into the gastric antrum and duodenal bulb without delay. Single and air-contrast images of the duodenal bulb demonstrate no abnormality. The duodenal sweep has a normal appearance, course, and mucosal fold appearance. The imaged proximal jejunum has a normal fold pattern and caliber. FLUOROSCOPY TIME: 4 minutes 42 seconds Number of Spot Images: 12 Number of Cine: 14 DOSE AREA PRODUCT: [id number] uGy-m2 (microgray-meter squared) FL/FL upper GI w air IMPRESSION: 1. Moderately disorganized esophageal peristalsis. 2. Mild gastroesophageal reflux . 3. Limited evaluation of the gastric mucosa due to the patient's body habitus. No obvious masses, ulcerations, or other abnormalities are seen. This procedure was performed by Harley Zelaya PA-C, and supervised by Dr. Bertrand
== END 2023-10-06 08:58 | disposition home or self-care (01) ==
LOC: HO.XRAY 08:57
PROVIDERS: Visit Provider Surgery
DX: E66.01 Morbid (severe) obesity due to excess calories (principal); I10 Essential (primary) hypertension; E03.9 Hypothyroidism, unspecified; G47.30 Sleep apnea, unspecified
CPT/HCPCS: 74246

== ENCOUNTER → 2023-10-06 08:58 | Outpatient (BNV) | payer BC, SELFPAY | PROVIDERS: Visit Provider Physician Assistant Surgical | DX: E66.01 Morbid (severe) obesity due to excess calories (principal); Z01.818 Encounter for other preprocedural examination | CPT/HCPCS: 74246 ==

== ENCOUNTER 2023-11-02 15:22 | Outpatient (AMB) | payer BC, SELFPAY ==
--- NOTE | 2023-11-02 13:23 | MHC.OFFVISWM ---
VS Expanded 11/02/23 13:24 Height 5 ft 3 in Weight 393 lb 8 oz BMI 69.7 Body Fat % 70 Body Fat Mass 275.6 Fat Free Mass 118.2 Visceral Fat Rating 30 Body Water % 20.5 Body Water Mass 80.7 Muscle Mass/Score 111 Basal Metabolic Rate/Score 1,525 Intake Visit Reasons: TV SWL F/U Performance Improvement Coordinator Required: No Allergies Penicillins Allergy (Mild, Verified 08/07/23 08:14) rash Medication List - Last Reconciled 11/02/23 by BROCK Correa cholecalciferol (vitamin D3) 125 mcg PO DAILY irbesartan-hydrochlorothiazide 150-12.5 mg 1 tab PO DAILY levonorgestrel (Mirena) intrauterine levothyroxine 150 mcg PO DAILY mecobalamin (vitamin B12) 1,000 mcg sublingual DAILY semaglutide (Ozempic) 0.25 mg (0.368 mL) subcut QWEEK 4 weeks spironolactone 25 mg PO DAILY vitamin A palmitate 10,000 units PO DAILY HPI Comments Details: 42 yo female who was first seen by Dr Tao, 08/07/23 with a weight of 420.8 pounds and a BMI of 74.5 Weight today is 393.8 pounds with a BMI of 69.7 She has lost 27 pounds or 6.4 % TBWL. She states that She states she is using the jeffy. She has found that she is a lot better w exercise. 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 She is struggling w hunger. Eating a laughing cow cheese wedge. Stated she would like to consider Zepbound out of pocket . Meal plan: Celebrate rebuild 2 scoops w 1 % milk at 9-920 another shake or pure protein bar, at [id number] meal at 5 pm protein and veg not measuring by forks, using oz 6 oz of protein and 6 of veg +/- another shake or bar, 8-820 drinking 48 oz water, no soda or juice Exercise plan: treadmill at home, 4 x per week, speed 1-1.5, permanent incline 2 or 3, 15 minutes, 0.25 mile outdoor walk, loop by her home, 5 x per week. has [employer] jeffy but not yet using. 0.6 miles, 15 min COUNTS INCLUDE [facility] BEDS AT THE [facility] Medical History Hypothyroidism Sleep apnea treated with continuous positive airway pressure (CPAP) Hypertension Morbid obesity Surgical History History of delivery Hx of oral surgery Family History Mother Hypertension Obesity Father No problems noted. Son No problems noted. Social History Patient Tobacco Use Status: Former Tobacco user Assessment & Plan Assessment & Plan (1) Morbid obesity: Code(s): E66.01 - Morbid (severe) obesity due to excess calories Category: Medical Plan: Discussed multiple issues to improve her success. Regarding her meal plan, follow the meal plan exactly by drinking the shakes over 2 hour period and the bar over 2 hour period. Additionally, if she finds that she is not wanting to have her last shake or bar, and she remains somewhat hungry in the later afternoon, she may have half in the later afternoon and the other half in the evening. Discussed the importance of making sure she follows the meal plan as closely as possible. Additionally, regarding her exercise, recommend increasing her time on the treadmill by 1 minute as she is able and if possible to do 2 sessions per day. Tracking her calories on the machine as well when she is walking outside using the [employer] jeffy to track her calories. She is in agreement with all these plans. She did request a recent finding of the prescription for Zepbound, but she will try to follow the plan accordingly prior to starting any new medication. Medications: Refilled tirzepatide (weight loss) (Zepbound) 2.5 mg (0.5 mL) subcut QWEEK 4 weeks 2 mL 0RF
[2023-11-02 13:24] VITALS: BMI 69.7
== END 2023-11-02 15:43 | disposition home or self-care (01) ==
LOC: HO.HBS 15:22
PROVIDERS: Visit Provider Physician Assistant Surgical
DX: E66.01 Morbid (severe) obesity due to excess calories (principal)
CPT/HCPCS: 99213

== ENCOUNTER → 2023-11-02 15:22 | Outpatient (BNVA) | payer BC, SELFPAY | PROVIDERS: Visit Provider Physician Assistant Surgical ==

== ENCOUNTER 2023-11-30 08:10 | Outpatient (AMB) | payer BC, SELFPAY ==
[2023-11-30 12:47] VITALS: BMI 68.3
--- NOTE | 2023-11-30 12:47 | MHC.OFFVISWM ---
VS Expanded 11/30/23 12:47 Height 5 ft 3 in Weight 385 lb 8 oz BMI 68.3 Body Fat % 70 Body Fat Mass 270 Fat Free Mass 115.8 Visceral Fat Rating 30 Body Water % 20.5 Body Water Mass 79 Basal Metabolic Rate/Score 1,503 Intake Visit Reasons: TV Follow Up SWL Allergies Penicillins Allergy (Mild, Verified 08/07/23 08:14) rash HPI HPI TV Follow Up SWL: Details: Start time: 12.45pm, End time: 1.05pm ?I spent 15 minutes speaking with the patient on the phone plus an additional 5 minutes reviewing and updating records for a total of 20 minutes HPI Comments Details: Overall weight loss: 35lbs, or 8.32% TBWL Is doing 1-2 Celebrate Rebuild scoops (2.5 scoops in 1% milk), 1-2 Celebrate bars, meal (6oz of meat and 6oz of salad or vegetables) Exercise: is doing treadmill x4/wk PFSH Medical History Hypothyroidism Sleep apnea treated with continuous positive airway pressure (CPAP) Hypertension Morbid obesity Surgical History History of delivery Hx of oral surgery Family History Mother Hypertension Obesity Father No problems noted. Son No problems noted. Social History Patient Tobacco Use Status: Former Tobacco user Telehealth Telehealth Telehealth Platform: Telephone Location of provider rendering services: practice address Location of patient: address on file Patient Identification confirmed using: Name, : Yes Telehealth method: voice only Patient verbally consented to treatment: Yes Patient verbally consented to billing insurance company: Yes Patient informed of any privacy concerns related to visit: Yes Minutes spent on Phone/Video with Pt.: 20 Assessment & Plan Assessment & Plan (1) Morbid obesity: Code(s): E66.01 - Morbid (severe) obesity due to excess calories Category: Medical Plan: 1. Change nutritional plan to 2 Celebrate Rebuild shakes (2.5 scoops in 1% milk), 2 Celebrate bars, meal (12 forks of meat and 12 forks of salad or vegetables) 2. Switch from weighing the food to measuring forkfuls 3. Exercise: increase treadmill to 5/wk for 400 calories per work-out and continue with outside walking 4. Continue to send me weight measurements weekly on Fridays
== END 2023-11-30 13:06 | disposition home or self-care (01) ==
LOC: HO.HBS 08:10
PROVIDERS: Visit Provider Surgery
DX: E66.01 Morbid (severe) obesity due to excess calories (principal); Z68.44 Body mass index [BMI] 60.0-69.9, adult
CPT/HCPCS: 99442

== ENCOUNTER → 2023-11-30 08:10 | Outpatient (BNVA) | payer BC, SELFPAY | PROVIDERS: Visit Provider Surgery ==

== ENCOUNTER 2024-02-11 10:30 | Outpatient (AMB) | payer BC, SELFPAY ==
--- NOTE | 2024-02-11 10:31 | A.OFFVIS_ITS ---
VS Expanded 02/11/24 10:40 BP 118/74 Blood Pressure Location Rt brachial Blood Pressure Position Sitting Pulse 90 Pulse Source Pulse Oximeter Temp 97.3 F Temperature Source Temporal Artery Scan Pulse Oximetry 98 Oxygen Delivery Method Room Air Height 5 ft 3 in Weight 365 lb 3.2 oz BMI 64.7 Body Fat % 51.3 Body Fat Mass 187.4 Fat Free Mass 177.6 Visceral Fat Rating 23.0 Body Water % 34.8 Body Water Mass 127.2 Muscle Mass/Score 168.8 Basal Metabolic Rate/Score 2,617 Intake Visit Reasons: OV Follow Up SWL Allergies Penicillins Allergy (Mild, Verified 02/11/24 10:33) rash HPI Comments Details: Overall weight loss: 56lbs, or 13.3% TBWL Here for her preoperative visit. PFS Medical History Hypothyroidism Sleep apnea treated with continuous positive airway pressure (CPAP) Hypertension Morbid obesity Surgical History History of delivery Hx of oral surgery Family History Mother Hypertension Obesity Father No problems noted. Son No problems noted. Social History (Updated 02/11/24 @ 10:37 by Irina Jackson CMA) Alcohol intake: current Alcohol intake frequency: holidays/special occasions only Patient Tobacco Use Status: Former Tobacco user Physical Exam Vital Signs: Last Vital Signs Temp 97.3 F 02/11/24 10:40 Pulse 90 02/11/24 10:40 BP 118/74 02/11/24 10:40 Pulse Ox 98 02/11/24 10:40 Oxygen Delivery Method Room Air 02/11/24 10:40 BMI result Body Mass Index 64.7 GI Inspection: Yes normal to inspection, Yes incision (well healed) and Yes obesity Palpation (GI): Soft to palpation (softer than previously) Extrem General: Yes normal to inspection Right lower extremity: normal to inspection (no edema) Left lower extremity: normal to inspection (no edema) Assessment & Plan Assessment & Plan (1) Morbid obesity: Code(s): E66.01 - Morbid (severe) obesity due to excess calories Category: Medical Plan: 1. Plan for lap sleeve gastrectomy including upper GI endoscopy. All tests has been completed and reviewed and the patient is cleared for the surgery. ?If diaphragmatic or ventral hernias are present at time of surgery, these will be repaired laparoscopically as well. Risks and complications were discussed in de tail including possible conversion to an open procedure, anastomotic leak, bleeding requiring transfusion, small bowel obstruction, , DVT and pulmonary embolism, cardiac, or pulmonary complications, as snf complications such as anastomotic ulcer, insufficient weight loss and vitamin deficiencies. I emphasized the importance of close follow-up, adherence to instructions and good communication. So far she has proven to be an excellent communicator and very compliant with all our directions accomplishing a great weight loss. I believe that she is an excellent candidate and she is ready. 2. Preop prescriptions were provided and explained the purpose of each one. Need to be purchased preop. Start Pantoprazole now as you get it from the pharmacy, 1 pill per day. Sucralfate and Zofran are for after surgery as needed. 3. Bowel prep: please do 7 packets ?of Miralax mixing each one with a an 8oz glass of water, crystal light, gatorade zero, or propel ?on 03/08/24 and the s debi amount on 03/09/24. The Miralax you begin with one packet at a time in 8oz water or crystal light, gatorade zero, or propel ?as early in the day as you can and you do them back to back until you finish them. Continue the protein shakes during ?the bowel prep. 4. Needs to purchase 1oz medicine cups . 5. Needs to purchase Children's liquid Tylenol for postop pain control. 6. She needs to the Zepbound on 03/03/24. Avoid aspirin, motrin, Advil, Aleve, Ibuprofen, Naproxyn. Tylenol is OK. 7. She needs to purchase the Celebrate 4:1 protein shakes or the Celebrate multivitamins from the hospital's gift shop. 8. Will do basic preop blood work-up any day between Thursday02/10/22 and Thursday02/14/22 fasting for 12 hours and is scheduled to see the Anesthesiologist prior to the day of surgery. 9. Importance of adherence to postop folllow-up and recommendations was underscored and she understands that. 10. Stop food and bars as of Thursday02/15/24 and create an aggressive plan with only protein shakes with the [facility] jeffy. Send me a screenshot of the plan you will create 11. No soups, broths or V8 12. The patient's?medical?history has been reviewed and they are considered low risk for post op DVT and therefore DVT prophylaxis is not considered necessary. Travel after surgery was reviewed. The patient has not disclosed any travel plans during the first 30 days after surgery and they have been advised that within the first 30 days after surgery any bus, plane, train or car travel over 2 hours in duration is contraindicated due to the possibility of developing blood clots from immobility. Any travel, needs to include periods of ambulation of 10 minutes in duration every 2 hours.? Patient was instructed to discuss any plans for travel during this period with their bariatric surgeon.? 13. Use your CPAP daily and bring it to the hospital with your mask 14. As of tomorrow, please check your blood pressure daily in the morning. If your blood pressure is: Below 120/70: do not take the Irbesatran/Hydrochlorothiazide and Spironolactone 121/71 to 135/85: take HALF Irbesatran/Hydrochlorothiazide and HALF Spironolactone Over 136/86: take the whole Spironolactone and HALF Irbesatran/Hydrochlorothiazide 15. Please take at the day of surgery the following medications: Irbesatran/Hydrochlorothiazide and Spironolactone if the blood pressure that day is high enough to justify it based on the parameters at the previous bullet point. 16. Stop any control pills and don't use them for one month after surgery 17. Absolutely no smoking or vaping, or marijuana until the surgery and for at least the first 4 weeks. Only nicotine patches are allowed. 18. Send me weight measurements on Thursday02/12/24, 02/19/24, 02/26/24, 03/04/24 and then on 03/10/24 the day of surgery before you go to the hospital. 19. Avoid any steroids by mouth for any reason. Let me know if someone prescribes them to you 20. These instructions supersede anything else you read in the handbook, anything you watched in videos or classes or you were told by any other provider. If there is any conflict, you follow the above instructions and nothing else. Orders: Orders Comprehensive Met. Panel Today E03.9 - Hypothyroidism, unspecified, E66.01 - Morbid (severe) obesity due to excess calories, I10 - Essential (primary) hypertension Prothrombin Time INR Today E03.9 - Hypothyroidism, unspecified, E66.01 - Morbid (severe) obesity due to excess calories, I10 - Essential (primary) hypertension Lipid Panel Today E03.9 - Hypothyroidism, unspecified, E66.01 - Morbid (severe) obesity due to excess calories, I10 - Essential (primary) hypertension Type and Screen Today E03.9 - Hypothyroidism, unspecified, E66.01 - Morbid (severe) obesity due to excess calories, I10 - Essential (primary) hypertension C Reactive Protein Today E03.9 - Hypothyroidism, unspecified, E66.01 - Morbid (severe) obesity due to excess calories, I10 - Essential (primary) hypertension TSH reflex Free T4 Today E03.9 - Hypothyroidism, unspecified, E66.01 - Morbid (severe) obesity due to excess calories, I10 - Essential (primary) hypertension Hemoglobin A1c Today E03.9 - Hypothyroidism, unspecified, E66.01 - Morbid (severe) obesity due to excess calories, I10 - Essential (primary) hypertension Partial Thromboplastin Time Today E03.9 - Hypothyroidism, unspecified, E66.01 - Morbid (severe) obesity due to excess calories, I10 - Essential (primary) hypertension Complete Blood Count Auto Diff Today E03.9 - Hypothyroidism, unspecified, E66.01 - Morbid (severe) obesity due to excess calories, I10 - Essential (primary) hypertension Insulin Today E03.9 - Hypothyroidism, unspecified, E66.01 - Morbid (severe) obesity due to excess calories, I10 - Essential (primary) hypertension Medications: New sucralfate 10 mL PO BID 600 mL 2RF K21.9 - Gastro-esophageal reflux disease without esophagitis polyethylene glycol 3350 (Miralax) Mix each measuring cup with 8oz of water, Crystal light, or Gatorade zero, or Propel and do 7 measuring cups on 03/08/24 and another 7 measuring cups on 03/09/24 17 grams PO DAILY 14 ea 0RF Z01.818 - Encounter for other preprocedural examination pantoprazole 40 mg PO DAILY 90 tabs 0RF K21.9 - Gastro-esophageal reflux disease without esophagitis ondansetron Only take one every 12 hours as needed if you have nausea 4 mg PO Q6H PRN 20 tabs 0RF nausea and vomiting R11.0 - Nausea
[2024-02-11 10:40] VITALS: BP 118/74; PULSE 90; TEMP 36.3; O2SAT 98; BMI 64.7
== END 2024-02-11 12:08 | disposition home or self-care (01) ==
PROVIDERS: Visit Provider Surgery
DX: E66.01 Morbid (severe) obesity due to excess calories (principal); E66.813 Obesity, class 3; Z68.44 Body mass index [BMI] 60.0-69.9, adult
CPT/HCPCS: 99214

== ENCOUNTER 2024-03-03 07:59 | Outpatient (REF) | payer BC, SELFPAY ==
[2024-03-03 08:24] LABS: MANUAL DIFF FLAG NO
[2024-03-03 08:43] LABS: Basophils Absolute Auto 0.1 X10*3/uL (0.0-0.2); Eosinophils Absolute Auto 0.1 X10*3/uL (0.0-0.4); Eosinophils Percent Auto 1.3 % (0-4); Hematocrit 37.5 % (37.0-47.0); Hemoglobin 12.5 g/dl (12.0-16.0); Imm Gran Abs Auto 0.04 X10*3/uL (0.00-0.03); Imm Gran Pct Auto 0.4 % (0.0-0.4); Lymphocytes Percent Auto 28.5 % (20-40); Mean Corpuscular HGB Conc 33.3 g/dl (31.0-35.0); Mean Corpuscular Hemoglobin 30.3 pg (27.0-33.0); Mean Corpuscular Volume 90.8 fL (80.0-98.0); Monocytes Absolute Auto 0.6 X10*3/uL (0.1-1.2); Monocytes Percent Auto 5.4 % (2-11); Neutrophils Absolute Auto 6.6 x10*3/uL (2.0-8.3); Neutrophils Percent Auto 63.4 % (45-73); Platelet Count 250 X10*3/uL (160-400); Red Blood Count 4.13 X10*6/uL (4.20-5.50); White Blood Count 10.3 X10*3/uL (4.8-10.8)
[2024-03-03 08:47] LABS: INTERNATIONAL NORM RATIO 1.1 (0.9-1.1); Prothrombin Time 12.3 SEC (10.9-12.4)
[2024-03-03 08:53] LABS: Estimated Average Glucose 103 mg/dL; Hemoglobin A1C 105.5796 umol/L; Hemoglobin A1c % 5.2 % (<6.0); Total Hemoglobin (HGBA1C) 3181.6783 umol/L
[2024-03-03 09:21] LABS: Alanine Aminotransferase 35 U/L (0-31); Albumin Level 4.2 g/dL (3.5-5.0); Alkaline Phosphatase 70 U/L (39-117); Anion Gap 10 (12-20); Aspartate Amino Transferase 24 U/L (5-31); Bilirubin Total 0.4 mg/dL (0.0-1.0); Blood Urea Nitrogen 20 mg/dL (9-16); C Reactive Protein 0.94 mg/dL (< or = 0.50); Calcium 9.4 mg/dL (8.4-10.2); Carbon Dioxide 28 mmol/L (22-29); Chloride 107 mmol/L (96-108); Cholesterol 166 mg/dL (<200); Estimated Glomerular Filt Rate > 60; Glucose Random 95 mg/dL (60-115); HDL Cholesterol 33 mg/dL (>40); LDL Cholesterol Calculated 112 mg/dL (<100); Potassium 3.7 mmol/L (3.3-5.1); Sodium 141 mmol/L (135-145); Total Protein 7.9 g/dL (6.5-8.0); Triglycerides 107 mg/dL (<150)
[2024-03-03 10:44] LABS: Insulin 15 uU/mL (2-29); TSH reflex Free T4 1.39 uIU/mL (0.32-4.0)
== END 2024-03-03 08:00 | disposition home or self-care (01) ==
LOC: HO.LAB 07:59
PROVIDERS: PCP Internal Medicine; Visit Provider Surgery
DX: Z13.1 Encounter for screening for diabetes mellitus (principal); I10 Essential (primary) hypertension; E66.01 Morbid (severe) obesity due to excess calories; E03.9 Hypothyroidism, unspecified
CPT/HCPCS: 36415; 80053; 80061; 83036; 83525; 84443; 85025; 85610; 85730; 86140

== ENCOUNTER 2024-03-10 05:52 | Day surgery (SDC) | payer BC, SELFPAY ==
[2024-03-03 11:31] VITALS: BMI 62.5
--- NOTE | 2024-03-08 09:31 | HO.ANESPROP2 ---
Documented by User: Lynn Rivera NP 03/08/24 09:38 HPI - Anesthesia Eval Consult details Narrative: 43yo F for Gastrectomy Sleeve- EGD, possible diaphragmatic hernia, possible ventral hernia, possible open BMI: 62.5 Anesthesia Pre-Procedure Meds Is the patient on any of the following meds?: GLP1/DPP4 PMFSH Active Problems Active Problems: All Active Problems Vitamin B12 deficiency (Acute) Vitamin A deficiency (Acute) Vitamin D deficiency (Acute) Hypothyroidism (Acute) Sleep apnea treated with continuous positive airway pressure (CPAP) (Acute) Hypertension (Acute) Morbid obesity (Acute) Past Medical History Medical History (Updated 03/10/24 @ 09:11 by Lisa Martinez MD) PONV (postoperative nausea and vomiting) Hypothyroidism Sleep apnea treated with continuous positive airway pressure (CPAP) Hypertension Morbid obesity Family History Family History Mother Hypertension Obesity Father No problems noted. Son No problems noted. Surgical History Surgical History History of esophagogastroduodenoscopy (EGD) (09/17/23) History of delivery (2015) Hx of oral surgery History of Problems with Anesthesia: No Social History Social History Are you a primary care transitions manager to a significant other at home: Yes (son 8 yrs old) Do you presently have visiting nurse or other home services: No Alcohol intake: current Alcohol intake frequency: holidays/special occasions only Patient Tobacco Use Status: Never used Tobacco Use of substances other than those prescribed or required for medical reasons: Yes Substance Use Type Other:: occasional gummies Substance Use Frequency: Occasionally Have you been hit, kicked, punched, or otherwise hurt by someone within the past year? If so, by whom?: No Are you DNR?: No Advance Directives: No Advance Directives Information Provided: Yes Advance Directives on File: No Recently lost weight without trying: No Nutrition Risks: No Nutritional Risk Patient : No FDLMP: 02/18/2024 : No Poor oral hygiene: No Meds Allergies Allergy/AdvReac Type Severity Reaction Status Date / Time Penicillins Allergy Mild rash Verified 03/10/24 06:20 Home Medications ?Medication ?Instructions ?Recorded ?Confirmed ?Last Taken ?Type irbesartan 150 1 tab PO DAILY 06/11/23 03/03/24 03/09/24 History mg-hydrochlorothiazide 12.5 mg tablet levonorgestrel 21 mcg/24 hr (up to intrauterine 06/11/23 11/02/23 Unknown History 8 years) 52 mg intrauterine device (Mirena) levothyroxine 150 mcg tablet 150 mcg PO DAILY 06/11/23 03/03/24 03/09/24 History spironolactone 25 mg tablet 25 mg PO DAILY 06/11/23 03/03/24 03/09/24 History Exam Height,Weight and Vital Signs: Height 5 ft 3 in Weight 160.118 kg Pertinent Lab Results Pertinent Lab Results: Laboratory Tests 03/03/24 08:10 Blood Type A Positive Antibody Screen NEGATIVE Laboratory Tests 03/03/24 08:23 WBC 10.3 Hgb 12.5 Hct 37.5 Plt Count 250 Sodium 141 Potassium 3.7 Chloride 107 Carbon Dioxide 28 BUN 20 H Creatinine 0.75 Narrative Narrative: EKG 08/2023 Vent. Rate : 085 BPM Atrial Rate : 085 BPM P-R Int : 168 ms QRS Dur : 080 ms QT Int : 372 ms P-R-T Axes : 053 009 046 degrees QTc Int : 442 ms Normal sinus rhythm Normal ECG No previous ECGs available Assessment and Plan Assessment Anesthesia Assessment: Chart Reviewed Final Anesthetic Review History of Problems with Anesthesia: No Documented by User: Lisa Martinez MD 03/10/24 09:24 HPI - Anesthesia Eval Consult details Narrative: 43yo F for EGD, Laparoscopic Sleeve Gastrectomy, possible diaphragmatic hernia repair, possible ventral hernia repair, possible open BMI: 62.5 Anesthesia Pre-Procedure Meds Is the patient on any of the following meds?: GLP1/DPP4 (Last dose of Tirzepatide 03/03/24) If yes to any meds - educate patient: Pt education - increased risk of aspiration and/or euvolemic DKA PMFSH Active Problems Active Problems: All Active Problems Vitamin B12 deficiency (Acute) Vitamin A deficiency (Acute) Vitamin D deficiency (Acute) Hypothyroidism (Acute) Sleep apnea treated with continuous positive airway pressure (CPAP) (Acute) Hypertension (Acute) Super super Morbid obesity (Acute) BMI 61.8 Occasional marijuana gummies Small Hiatal hernia Past Medical History Medical History (Updated 03/10/24 @ 09:11 by Lisa Martinez MD) PONV (postoperative nausea and vomiting) Hypothyroidism Sleep apnea treated with continuous positive airway pressure (CPAP) Hypertension Morbid obesity Family History Family History Mother Hypertension Obesity Father No problems noted. Son No problems noted. Family history of problems with anesthesia: No Surgical History Surgical History History of esophagogastroduodenoscopy (EGD) (09/17/23) History of delivery (2015) Hx of oral surgery History of Problems with Anesthesia: No Social History Social History Are you a primary care transitions manager to a significant other at home: Yes (son 8 yrs old) Do you presently have visiting nurse or other home services: No Alcohol intake: current Alcohol intake frequency: holidays/special occasions only Patient Tobacco Use Status: Never used Tobacco Use of substances other than those prescribed or required for medical reasons: Yes Substance Use Type Other:: occasional gummies Substance Use Frequency: Occasionally Have you been hit, kicked, punched, or otherwise hurt by someone within the past year? If so, by whom?: No Are you DNR?: No Advance Directives: No Advance Directives Information Provided: Yes Advance Directives on File: No Recently lost weight without trying: No Nutrition Risks: No Nutritional Risk Patient : No FDLMP: 02/18/2024 : No Poor oral hygiene: No Meds Allergies Allergy/AdvReac Type Severity Reaction Status Date / Time Penicillins Allergy Mild rash Verified 03/10/24 06:20 Home Medications ?Medication ?Instructions ?Recorded ?Confirmed ?Last Taken ?Type irbesartan 150 1 tab PO DAILY 06/11/23 03/03/24 03/09/24 History mg-hydrochlorothiazide 12.5 mg tablet levonorgestrel 21 mcg/24 hr (up to intrauterine 06/11/23 11/02/23 Unknown History 8 years) 52 mg intrauterine device (Mirena) levothyroxine 150 mcg tablet 150 mcg PO DAILY 06/11/23 03/03/24 03/09/24 History spironolactone 25 mg tablet 25 mg PO DAILY 06/11/23 03/03/24 03/09/24 History Exam Height,Weight and Vital Signs: Height 5 ft 3 in Weight 160.118 kg Vital Signs Temp Pulse Resp BP Pulse Ox O2 Del Method 03/10/24 06:36 98.0 F 98 18 129/79 97 Room Air Pertinent Lab Results Pertinent Lab Results: Laboratory Tests 03/03/24 08:10 Blood Type A Positive Antibody Screen NEGATIVE Laboratory Tests 03/03/24 08:23 WBC 10.3 Hgb 12.5 Hct 37.5 Plt Count 250 Sodium 141 Potassium 3.7 Chloride 107 Carbon Dioxide 28 BUN 20 H Creatinine 0.75 Lab Results 03/03/24 03/10/24 Range/Units 08:10 07:10 Urine Test NEGATIVE (NEGATIVE) Blood Type A Positive Antibody Screen NEGATIVE Airway Mallampati Class: II TM Dist: >3cm Neck ROM: Full Loose/Missing/Broken Teeth: No (Denies broken, loose, missing teeth) Heart: RRR Lungs: CTAB Assessment and Plan Assessment Anesthesia Assessment: Anesthesia Plan Discussed and Chart Reviewed Final Anesthetic Review Family History of Problems with Anesthesia: No History of Problems with Anesthesia: No NPO: Yes ASA Class: III Final Preanesthetic Review: No Changes in Pt Med Stat, Meds/Allgs Chart Reviewed, Consent Obtained/Reviewed and Anes Risks/Benef Reviewed Patient Risk: High Procedure Risk: Intermediate Assessment/Block/Sedation in SS: Assess/Block/Sedation-SS Anesthetic Plan Anesthetic Plan: GA Disposition: Standard PACU and Inp. Admit - Standard Bed
[2024-03-10] VITALS (11 sets, daily range): BP systolic 113–145; BP diastolic 56–84; PULSE 81–100; RESP 16–26; TEMP 36.3–37; O2SAT 93–98; BMI 61.8
--- NOTE | ~2024-03-10 | XR_ITS ---
EXAMINATION: XR CHEST CLINICAL INFORMATION: leucocytosis COMPARISON: Chest 08/26/2023. TECHNIQUE: 2 views of the chest were obtained. FINDINGS: Lungs are well-expanded with bandlike atelectasis in the lingula. Rest of the lungs are clear. The heart size and pulmonary vascularity is normal. There is mild spondylosis dorsal spine. No aggressive lytic or sclerotic process seen. XR/XR chest 2V IMPRESSION: No acute cardiopulmonary process seen. Electronically signed by: Min John MD 03/11/2024 10:47 AM EST
[2024-03-10] MEDS: Lactated Ringers 1,000 ML 100 ML IVCONT ×3 (06:25→20:27)
[2024-03-10] MEDS: Lactated Ringers 1,000 ML 999 ML IV (06:25)
[2024-03-10] MEDS: Aprepitant 32 MG/4.4 ML VIAL IVPUSH (06:40)
[2024-03-10 07:10] LABS: UPreg QC Valid YES; Urine Pregnancy NEGATIVE (NEGATIVE)
--- NOTE | 2024-03-10 07:24 | PC.NURSE ---
Author requested dr. drew to assess abdomen as patient has approx. 10 areas approx size of 1/4 dime that are reddened, one or 2 scabbed. patient states those are ingrown hairs. doctor assessed and stated okay to proceed.
--- NOTE | 2024-03-10 07:27 | MHC.SHP ---
Pre-Procedural Eval Section A - 24 Hr Update-Section A only Date of Service: 03/10/24 The patient is an INPATIENT: Yes The patient has been examined within 24 hours of the surgical procedure. The History & Physical has been completed within 30 days and I have reviewed it.: No Section B - Complete if H&P > 30 days Chief Complaint: Morbid (severe) obesity due to excess calories Relevant Family History (Specify if Yes): No Relevant Social History: None Present Medications: None Medical History: No relevant PMH History of Previous Operations: No relevant previous surgery Allergies: Allergies Allergy/AdvReac Type Severity Reaction Status Date / Time Penicillins Allergy Mild rash Verified 03/10/24 06:20 Review of Systems Sugical H&P ROS: Negative: Constitution, Cardiovascular, Respiratory, Neurological, Psychiatric, Hem-Onc, Allergic/Immunologic, Gastrointestinal, Genitourinary, Musculoskeletal, Integumentary, Endocrine and Eyes/Ears/Nose/Throat Exam Surgical H&P Exam: Normal: HEENT, Normal: Heart, Normal: Lungs, Normal: Extremities, Normal: Abdomen, Normal: Skin and Normal: Neurological Plan Diagnosis/Plan: Unchanged I have reviewed the history and physical and performed a pertinent physical examination on my patient. No changes have occurred unless specified. Time Spent With Patient Time: Total time managing care of this patient today ____ minutes.
--- NOTE | 2024-03-10 07:28 | P.BOP_ITS ---
Brief Operative Note Date of Service: 03/10/24 Pre-op diagnosis: Morbid obesity with comorbidities (see below) Post-op diagnosis: same (& congenital abdominal adhesions) Procedure: INITIAL PATIENT BMI ON PRESENTATION AT OUR OFFICE: 68.6 kg/m2 LAST BMI BEFORE SURGERY: 62.4 kg/m2 COMORBIDITIES: sleep apnea on CPAP, hypertension, hypothyroidism, GERD, liver steatosis ?The patient presented to the Weight Management Program with significant obesity that was negatively impacting the patient's comorbidities as listed above.? The program is a phased program with a special focus on preoperative medical weight management to promote substantial weight loss and prepare the patients for the second phase of the program: bariatric surgery. The patient participated in an intensive weekly lifestyle ?intervention and exercise program during which the patient ?has lost between the initial office visit and the last preoperative visit 68.6 lbs, or 16.3% of initial actual body weight. It was deemed appropriate for the patient to now have bariatric surgery. In light of the current Covid-19 pandemic and the well documented strong association of obesity and increased risk of worse outcomes if infected with Covid-19 (REFERENCES: https://pubmed.ncbi.nlm.nih.gov/22319997/ ,? https://pubmed.ncbi.nlm.nih.gov/96384187/ ), any delay in undergoing bariatric surgery may lead to the patient's worsening health condition and increased?risk of more severe Covid-19 disease if infected. In addition a recent?study from [facility] published in [employer] on 03/04/2021 ([email or web address]) found that, among patients with obesity, substantial weight loss achieved with surgery was associated with improved outcomes of COVID-19 infection. The findings suggest that obesity can be a modifiable risk factor for the severity of COVID-19 infection. In addition, the patient met the BMI-criteria for bariatric surgery based on the BMI on initial presentation. The patient should not be penalized for achieving such weight loss because ?it is not sustainable long-term without surgical intervention and it was achieved in preparation for bariatric surgery ?under my direction and based on my published research ([email or web address]).[email or web address] and? https://www.soard.org/article/[email or web address](85)46930-X/pdf ) ?that a 10% preoperative weight loss improves long-term weight loss after surgery and reduces perioperative complications.? Insurance carriers such as [facility] have endorsed my recommendations ?and have included in their policies criteria to include a 10% preoperative weight loss requirement. PROCEDURE: Esophago-gastroscopy, laparoscopic lysis of adhesions, laparoscopic sleeve gastrectomy and laparoscopic gastropexy INDICATIONS: This is a 43 year-old female who was electively scheduled for laparoscopic, possibly open sleeve gastrectomy. The risks and complications of the procedure were discussed with the patient in advance, particularly the possibility of ; pulmonary embolism; staple line leak; bleeding; GERD; cardiac, pulmonary, or renal complications; as well as long-term problems such as insufficient weight loss, vitamin deficiency, strictures, or ulcers. The patient understood all the risks, and was in agreement to proceed with surgery. DESCRIPTION OF PROCEDURE: After informed consent was obtained from the patient, the patient was given preoperative antibiotics, and was transferred to the operating room. After successful induction of general anesthesia, pneumatic compression devices were placed on both lower extremities. An upper endoscopy was performed next. The oropharynx and esophagus appeared to be within normal limits. There was no diaphragmatic hernia present of moderate size consistent with the findings of the preoperative upper GI. The stomach was entered. Then after all fluid and air were suctioned and the stomach was fully decompressed, the scope was withdrawn and secured in the mid esophagus. The patient was then prepped and draped in the usual sterile manner, and abdominal access was established at the right upper quadrant with the Senait technique. A 12 mm blunt port was inserted, and the abdomen was insufflated with CO2 to a pressure of 15 mmHg. Under direct visualization, additional ports were placed, specifically two 5 mm Versi-step ports to the left upper quadrant, and a 5 mm Versi-Step port to the right upper quadrant. 1% lidocaine plain was used to infiltrate all port sites as well as all fascia defects. Following that, the patient was placed in a steep reverse Trendelenburg position. An additional 5 mm port was placed to the right flank for the Mediflex retractor that was used to retract the left lobe of the liver. The gastro-esophageal fat pad was opened with the ultrasonic device (Thunderbeat, Olympus) and the anterior esophagus and hiatus were exposed. The angle of His was opened with the ultrasonic device the fundus of the stomach from any diaphragmatic and splenic attachments. I then opened the gastrocolic ligament between the transverse colon and the greater curvature of the stomach with the ultrasonic device to enter the lesser sac and facilitate the ligation of the short gastric vessels. I started at a mid-point along the greater curvature and using the Thunderbeat, all short g astric vessels were divided all the way to the angle of His until the left clement was completely dissected at its entirety. I then divided the gastro-colic ligament distally to a distance of about 3-4 cm proximal to the pylorus. There were extensive congenital adhesions between the pancreas and posterior gastric wall. Those were lysed completely with the ultrasonic device. Adhesiolysis took approximately 45 min to complete. The stomach was then divided transversely with one Endo DAYTON-45 purple and four DAYTON-6s0 articulating purple loads using the SIGNIA stapler and loads. Every effort was made that the gastric sleeve had a tubular shape and an even caliber throughout. Once the sleeve resection was completed, the staple line of the gastric sleeve was reinforced with Hemoclips. The resected stomach was retrieved without difficulty from the Senait port. A gastropexy was then performed in order to prevent postoperative GERD and partial gastric volvulus. Several interrupted 2.0 Surgidac sutures were placed between the sleeve's staple line and the previously divided greater omentum and gastro-colic ligament using the Endo-Stitch device. ?An upper endoscopy was performed. There was no narrowing at the GE junction. The scope was easily advanced all the way to the pylorus which was clearly visualized. There was no narrowing anywhere and the sleeve's caliber was even throughout. The sleeve's staple line was inspected and there was no evidence of ischemia, bleeding or dehiscence. At that point the gastroscope was withdrawn from the patient?s mouth while we were decompressing the bowel and the stomach from any remaining air. I looked into the lesser sac to see how the sleeve was situating and it was situating well. There was no bleeding from the staple line, spleen, or short gastric vessels. The Mediflex retractor was removed, and the undersurface of the liver was inspected and there was no bleeding. The patient was placed in supine position. I closed the fascial defect of the 12 mm port site with a figure of eight #1 Polysorb suture. Then 30cc Ropivacaine plain with 10 mg of Dexamethasone were used to infiltrate the fascial closure as well as all skin incisions. At this point, the abdomen was deflated, all ports were removed under direct vision, and no bleeding was noted from any of the port sites. The skin incisions were irrigated with saline and were closed with 4-0 absorbable monofilament sutures. Steri-Strips and OpSites were used to cover all incisions. The patient was extubated and was transferred in stable condition to the recovery room for further care. I was present and performed all hernadez parts of the procedure. Ms. Ayala was the operating room assistant. There were no residents to assist with this case. David Tao MD, PhD, FACS Surgeon: Hair Tao MD Anesthesia: GETA, local and other (TAP block) Was an Staff [employer] Officer used for this Procedure?: No Staff [employer] Officer: Dirk Miller Estimated blood loss (mL): 10 IV fluids (mL): 2,200 Urine output (mL): 0 (No Guy to record output) Pathology: other (1) Stomach, 2) Gastro-esophageal fat pad) Condition: stable Disposition: PACU
--- NOTE | 2024-03-10 07:31 | PM.PNGS ---
Subjective Subjective Date of Service: 03/10/24 Interval history: Feels well. Mild incisional pain. She is tolerating phase 1 bariatric diet Physical Exam Vital Signs: Vital Signs: Last Vital Signs Temp 98.0 F 03/10/24 06:36 Pulse 98 03/10/24 06:36 Resp 18 03/10/24 06:36 BP 129/79 03/10/24 06:36 Pulse Ox 97 03/10/24 06:36 O2 Del Method Room Air 03/10/24 06:36 BMI result Body Mass Index 61.8 GI: Inspection: Yes normal to inspection, Yes incision (clean, dry and intact) and Yes obesity Palpation (GI): Soft to palpation Extrem: Right lower extremity: normal to inspection (no calf tenderness) Left lower extremity: normal to inspection (no calf tenderness) Objective Data Active Medications Lactated Ringer's (Lr) 1,000 mls @ 100 mls/hr IVCONT .Q10H [facility] Last Admin: 03/10/24 06:25 Dose: 100 mls/hr Documented By: MAGALYS Lactated Ringer's (Lr) 1,000 mls @ 999 mls/hr IV .Q1H1M [facility] Stop: 03/10/24 08:00 Last Admin: 03/10/24 06:25 Dose: 999 mls/hr Documented By: MAGALYS Labs Labs: Laboratory Results - last 24 hr 03/10/24 07:10 Urine Test NEGATIVE Procedures Date of Service Date of Service: 03/10/24 Progress Note: A&P Assessment and plan (1) Morbid obesity: Status: Acute Assessment and Plan: s/p laparoscopic sleeve gastrectomy, lysis of adhesions and gastropexy Doing well Will check am labs and if OK the patient will be discharged home (2) Hypothyroidism: Status: Acute (3) Hypertension: Status: Acute (4) Sleep apnea treated with continuous positive airway pressure (CPAP): Status: Acute (5) Steatosis, liver: Status: Acute (6) Congenital intra-abdominal adhesions: Status: Acute (7) S/P laparoscopic sleeve gastrectomy: Status: Acute Time Spent With Patient Time: Total time managing care of this patient today ____ minutes. Quality Stroke Does the patient have a stroke diagnosis?: No VTE Prior VTE?: No VTE Risk Level:: Surgical - moderate VTE Device Contraindication: Treatment Not Indicated VTE Drug Contraindication: N/A - Med Ordered
--- NOTE | 2024-03-10 10:11 | P.DS_ITS ---
DS: Providers Provider Date of Service: 03/12/24 Date of admission: 03/10/24 05:59 Primary care physician: Unknown Physician DS: Diagnosis Discharge Diagnosis (1) Morbid obesity: Status: Acute (2) Hypothyroidism: Status: Acute (3) Hypertension: Status: Acute (4) Sleep apnea treated with continuous positive airway pressure (CPAP): Status: Acute (5) Steatosis, liver: Status: Acute (6) Congenital intra-abdominal adhesions: Status: Acute (7) S/P laparoscopic sleeve gastrectomy: Status: Acute DS: Summary Hospital Course Hospital Course: ADMITTING DIAGNOSIS: morbid obesity, raine, htn, hypothyroid ? DISCHARGE DIAGNOSIS: same, s/p laparoscopic sleeve gastrectomy ? PAST SURGICAL HISTORY: cesarian section ? PROCEDURE: upper endoscopy, laparoscopic sleeve gastrectomy ? DISCHARGE SUMMARY: ? History of Present Illness: ? The patient is a?43 year-old woman with a BMI of?74.5 kg/m2 and associated co- morbidities as described above. The patient had extensive work-up,lost?68.6 lbs preoperatively and was electively scheduled for laparoscopic, possible open sleeve gastrectomy and gastropexy. Risks and complications of the surgery were discussed with the patient in advance, particularly the possibility of , pulmonary embolism, anastomotic leak, bleeding, bowel injury, GERD, cardiac, renal or pulmonary complications. The patient understood all the risks and was in agreement with the surgical plan. ? Hospital Course: ? The patient underwent an uneventful laparoscopic sleeve gastrectomy with gastropexy on the day of admission. Postoperatively, the patient was transferred to the surgical floor. The patient received IV Acetaminophen and IV dilaudid for pain control. Patient was started on bariatric phase 1 diet POD #0. On postoperative day one, the patient was feeling well without nausea, vomiting, fevers, or tachycardia. The patient had some mild incisional pain and the abdomen was soft. ? On the morning of postoperative day one, the patient was continued on 1 ounce of water or ice every half hour. During the day, the patient did fairly well, having some incisional pain, but able to ambulate adequately and to tolerate liquids well. She was found to have significant leukocytosis and the decision was made to keep her in the hospital 1 more day for observation. She was asymptomatic however leukocytosis was significant. Repeat lab data on postop day 2 showed significant improvement and she has remained asymptomatic and will be discharged home. ? Since the patient is doing well, we decided that the patient was ready to be discharged. The patient was given instructions to follow-up with me next week and to call my office for any fever over 101, persistent abdominal pain, nausea, vomiting, GERD, symptoms of DVT such as calf tenderness, or leg swelling, or pulmonary embolism such as chest pain or shortness of breath. The patient was also instructed to drink 40-60 ounces of liquids per day using the 1-ounce cups. The patient had been given prescriptions for Tylenol for pain, Zofran prn for nausea, and pantoprazole and carafate previously. The patient was encouraged to ambulate and use the incentive spirometer. The patient was allowed to shower, but no baths, and encouraged to stay active at home. All of these instructions were given to the patient personally. All questions were answered and the patient understood all instructions, the instructions were also given to the patient in print. Time Attestation Total time managing care of this patient today: 25 mintues. Discharge Coordination Time (in mins): 25 Quality: Safe Use of Opioids Does Pt have an Active Cancer Diagnosis on the Problem List?: No Quality: Stroke Does the patient have a stroke diagnosis?: No Physical Exam Vital Signs: Vital Signs: Last Vital Signs Temp 98.5 F 03/10/24 10:05 Pulse 86 03/10/24 10:05 Resp 26 H 03/10/24 10:05 BP 113/66 03/10/24 10:05 Pulse Ox 97 03/10/24 10:05 O2 Del Method Nasal Cannula wit h Capnography 03/10/24 10:05 O2 Flow Rate 6 03/10/24 10:05 BMI result Body Mass Index 61.8 DS: Data Data Completed and Pending Pending studies at discharge: Pending at discharge 03/10/24 09:23 Surgical [PTH] Routine Labs on day of discharge: Laboratory Results - last 24 hr 03/10/24 07:10 Urine Test NEGATIVE Discharge Plan Discharge Patient Disposition: Home, Self-Care Referrals: Physician,Unknown J [Primary Care Provider] - 1 Week Discharge Medications: Continued pantoprazole 40 mg tablet,delayed release (DR/EC) 40 mg PO DAILY Qty: 90 0RF sucralfate 100 mg/mL suspension 10 ml PO BID Qty: 600 2RF ondansetron 4 mg tablet,disintegrating 4 mg PO Q6H PRN (Reason: nausea and vomiting) Qty: 20 0RF Rx Instructions: Only take one every 12 hours as needed if you have nausea irbesartan-hydrochlorothiazide 150-12.5 mg tablet 1 tab PO DAILY spironolactone 25 mg tablet 25 mg PO DAILY levothyroxine 150 mcg tablet 150 mcg PO DAILY Mirena 21 mcg/24 hours (8 yrs) 52 mg intrauterine device intrauterine Held Zepbound 12.5 mg/0.5 mL pen injector 12.5 mg subcut QWEEK Qty: 2 0RF Hold Instructions: until discussed with Dr Tao fondaparinux 2.5 mg/0.5 mL syringe 2.5 mg subcut Q24H Qty: 5 0RF Hold Instructions: until discussed with Dr Tao Discontinued vitamin A palmitate 3,000 mcg (10,000 unit) capsule 10,000 unit PO DAILY Qty: 60 1RF mecobalamin (vitamin B12) 1,000 mcg tablet,disintegrating 1,000 mcg sublingual DAILY Qty: 90 0RF Rx Instructions: place tablet under tongue and allow to dissolve for at least30 secs before swallowing cholecalciferol (vitamin D3) 125 mcg (5,000 unit) capsule 125 mcg PO DAILY Qty: 30 0RF Discharge Orders: Discharge Order (Routine); Ordered 03/12/24 Ordered By: Dirk Miller Activity on Discharge: No heavy lifting Stand Alone Forms: Patient Portal Discharge page Activity Restrictions/Additional Instructions: No tub baths, sex or returning to work until discussed at first post op appointment. No exercise, alcohol, tobacco or illegal drug use. Continue to use incentive spirometer hourly while awake. Walk in home for 5- 10 minutes every 2 hours during the first week. Follow all instructions in the bariatric handbook and call with any questions.Discharge Instructions 1. Please call your doctor or come back to the emergency room should any new symptoms arise. 2. You will receive a courtesy call from [facility] [place] 24-48 hours after discharge. 3. Activity: abstain from alcohol, practice limited stair climbing, no bending, no driving, no exercise, no illicit substances, no lifting, no sex, no tub bath, no work. 4. Diet: continue as discussed with Dr. Tao. 5. Dressing Change/Wound Care: Your incision is covered by clear bandages and guaze underneath. If the area is tender, you may apply an ice pack for short intervals (no more than 20 minutes on, followed by at least 20 minutes off). Do not apply heat. Do not use creams, lotions, or topical antibiotics unless i nstructed to do so by your surgeon. These can cause infection or allergic reaction. 6. Call your doctor if: - Your temperature exceeds 101.5 F - You experience excessive pain or swelling - You have an unexpected reaction to medication - You have excessive bleeding - You experience continued vomiting/nausea - Your incision begins to separate - Your incision shows signs of infection such as increased redness, swelling, excessive pain, heat, or drainage (light blood or clear fluid is normal) 7. General instructions: No lifting greater than 5 lbs for 1 week and not more than 20lbs the next 3?weeks. No driving until seen at the office in 5-7 days after surgery. If you do not move your bowels in the next 2 days, please tell?Dr. Tao. Please walk around your home every hour or two to prevent blood clots from forming in your legs. You do not need to wake from sleeping to walk. Please sleep in a bed or couch to prevent kinking at the hips and knees. Please take your incentive spirometer (your lung weather anchor) home with you and use it for the next few days to prevent pneumonia. You may shower, no hot tubs, baths or swimming pools.?Please follow the post op diet instructions you are?given by Dr Tao? and text me daily at 5-6pm for an update.?If you have any issues or concerns or questions please communicate this to him via text.? The Celebrate shakes have all of the bariatric vitamins you need if you consume these shakes. If you are drinking other protein shakes, you will need to purchase the Celebrate multivitamins and calcium that are available in the hospital gift shop on the first floor of the main hospital.??Do not take anything without first discussing with Dr Tao. Please make sure you are consuming at least 40 ounces of fluids per day starting the?day AFTER your discharge from the hospital. Always drink 1-2 ml per minute using the 5ml?syringe. If you drink faster you may experience?bloating,?gas pain, burping, nausea or heartburn. In that case please slow down your pace and use the syringe to?understand better the?proper?pace and volume of drinking. Do not hesitate to contact the office with any questions at . The patient's medical history has been reviewed and they are considered low risk for post op DVT and therefore DVT prophylaxis is not considered necessary. Travel after surgery was reviewed. The patient has not disclosed any travel plans during the first 30 days after surgery and they have been advised that within the first 30 days after surgery any bus, plane, train or car travel over 2 hours in duration is contraindicated due to the possibility of developing blood clots from immobility. Any travel, needs to include periods of ambulation of 10 minutes in duration every 2 hours.? The patient was instructed to discuss any plans for travel during this period with their bariatric surgeon. Print Language: Slovenian
[2024-03-10] MEDS: Haloperidol Lactate 5 MG/ML VIAL 1 MG IVPUSH (10:50)
[2024-03-10 11:21] LABS: Hematocrit 36.5 % (37.0-47.0); Hemoglobin 12.3 g/dl (12.0-16.0)
[2024-03-10 11:25] LABS: Anion Gap 14 (12-20); Blood Urea Nitrogen 18 mg/dL (9-16); Calcium 9.3 mg/dL (8.4-10.2); Carbon Dioxide 21 mmol/L (22-29); Chloride 108 mmol/L (96-108); Creatinine Clr Calc Pharmacy 138.4; Estimated Glomerular Filt Rate > 60; Glucose Random 132 mg/dL (60-115); Potassium 3.9 mmol/L (3.3-5.1); Sodium 139 mmol/L (135-145)
[2024-03-10] MEDS: Acetaminophen 1,000 MG/100 ML PIGGYBACK 16.7 MG IV ×3 (11:34→22:58)
--- NOTE | 2024-03-10 13:34 | PHA.MEDREC ---
Pharmacy Consult ? Medication Reconciliation Pharmacy has completed the medication reconciliation. spoke to patient at bedside to follow up on med red done by nursing. Patient confirmed all meds
[2024-03-11] VITALS (8 sets, daily range): BP systolic 107–131; BP diastolic 58–77; PULSE 72–95; RESP 12–20; TEMP 36.1–36.9; O2SAT 94–98
[2024-03-11] MEDS: Acetaminophen 1,000 MG/100 ML PIGGYBACK 16.7 MG IV ×3 (05:01→18:18)
[2024-03-11] MEDS: Pantoprazole Sodium 40 MG/10 ML VIAL IVPUSH (06:24)
[2024-03-11] MEDS: Lactated Ringers 1,000 ML 100 ML IVCONT ×2 (06:24→17:06)
[2024-03-11 07:20] LABS: MANUAL DIFF FLAG NO
[2024-03-11 07:26] LABS: Basophils Percent Auto 0.2 % (0-2); Hematocrit 36.2 % (37.0-47.0); Hemoglobin 12.2 g/dl (12.0-16.0); Imm Gran Abs Auto 0.25 X10*3/uL (0.00-0.03); Imm Gran Pct Auto 1.1 % (0.0-0.4); Lymphocytes Absolute Auto 2.1 X10*3/uL (1.2-4.9); Mean Corpuscular HGB Conc 33.7 g/dl (31.0-35.0); Mean Corpuscular Hemoglobin 30.2 pg (27.0-33.0); Mean Corpuscular Volume 89.6 fL (80.0-98.0); Mean Platelet Volume 12.3 fL (9.4-12.3); Monocytes Absolute Auto 0.9 X10*3/uL (0.1-1.2); Neutrophils Absolute Auto 19.9 x10*3/uL (2.0-8.3); Neutrophils Percent Auto 85.7 % (45-73); Platelet Count 271 X10*3/uL (160-400); Red Blood Count 4.04 X10*6/uL (4.20-5.50); Red Cell Distribution Width 14.2 % (11.0-16.0); White Blood Count 23.2 X10*3/uL (4.8-10.8)
[2024-03-11 07:47] LABS: Anion Gap 16 (12-20); Blood Urea Nitrogen 12 mg/dL (9-16); Calcium 8.8 mg/dL (8.4-10.2); Carbon Dioxide 19 mmol/L (22-29); Chloride 108 mmol/L (96-108); Creatinine Clr Calc Pharmacy 170.3; Estimated Glomerular Filt Rate > 60; Glucose Random 85 mg/dL (60-115); Potassium 4.1 mmol/L (3.3-5.1); Sodium 139 mmol/L (135-145)
--- NOTE | 2024-03-11 09:34 | MHC.CM.PN ---
Patient lives in a home w/ . Functionally independent. Denies use of DME or services. PCP Darwin Bhatia MD Completed HCP naming [facility]'s 1) Dirk Gaitan and 2) sister Brandie Rick. DP: Goal is home self care. Potential dc later today. to transport. CM will continue to follow.
--- NOTE | 2024-03-11 10:50 | HO.POSTANES ---
Post Anesthesia Evaluation Post Anesthesia Evaluation Date of Service: 03/11/24 Vital Signs: Vital Signs Temp Pulse Resp BP Pulse Ox O2 Del Method 03/11/24 10:26 94 Room Air 03/11/24 09:24 95 Room Air 03/11/24 07:35 97.6 F 94 18 131/77 98 Room Air 03/11/24 03:24 98.1 F 94 16 112/58 L 94 CPAP 03/10/24 23:37 97.5 F 100 18 120/56 L 96 Room Air Anesthesia: General Endotracheal-GETA Mental Status: Awake Pain Control: Satisfactory Nausea/Vomiting: None Hydration: Adequate Anesthesia-Related Issues: No Anes. Related Issues
[2024-03-11 13:21] LABS: MANUAL DIFF FLAG NO
[2024-03-11 13:23] LABS: Basophils Absolute Auto 0.1 X10*3/uL (0.0-0.2); Basophils Percent Auto 0.2 % (0-2); Hemoglobin 12.5 g/dl (12.0-16.0); Imm Gran Abs Auto 0.23 X10*3/uL (0.00-0.03); Imm Gran Pct Auto 0.9 % (0.0-0.4); Lymphocytes Absolute Auto 2.9 X10*3/uL (1.2-4.9); Mean Corpuscular HGB Conc 33.8 g/dl (31.0-35.0); Mean Corpuscular Hemoglobin 30.6 pg (27.0-33.0); Mean Corpuscular Volume 90.7 fL (80.0-98.0); Mean Platelet Volume 11.4 fL (9.4-12.3); Monocytes Absolute Auto 1.2 X10*3/uL (0.1-1.2); Neutrophils Percent Auto 81.9 % (45-73); Platelet Count 261 X10*3/uL (160-400); Red Blood Count 4.08 X10*6/uL (4.20-5.50); Red Cell Distribution Width 14.5 % (11.0-16.0); White Blood Count 24.4 X10*3/uL (4.8-10.8)
[2024-03-12] MEDS: Acetaminophen 1,000 MG/100 ML PIGGYBACK 16.7 MG IV ×2 (00:27→05:31)
[2024-03-12 03:27] VITALS: BP 109/61; PULSE 73; RESP 20; TEMP 36.4; O2SAT 100
[2024-03-12] MEDS: Lactated Ringers 1,000 ML 100 ML IVCONT (05:31)
[2024-03-12] MEDS: Pantoprazole Sodium 40 MG/10 ML VIAL IVPUSH (05:31)
[2024-03-12 07:40] VITALS: BP 119/65; PULSE 80; RESP 16; TEMP 36.8; O2SAT 93
[2024-03-12 08:06] LABS: MANUAL DIFF FLAG NO
[2024-03-12 08:15] LABS: Basophils Absolute Auto 0.1 X10*3/uL (0.0-0.2); Basophils Percent Auto 0.4 % (0-2); Eosinophils Percent Auto 0.3 % (0-4); Hematocrit 32.2 % (37.0-47.0); Hemoglobin 10.8 g/dl (12.0-16.0); Imm Gran Abs Auto 0.07 X10*3/uL (0.00-0.03); Imm Gran Pct Auto 0.5 % (0.0-0.4); Lymphocytes Absolute Auto 4.3 X10*3/uL (1.2-4.9); Lymphocytes Percent Auto 29.9 % (20-40); Mean Corpuscular HGB Conc 33.5 g/dl (31.0-35.0); Mean Corpuscular Hemoglobin 30.3 pg (27.0-33.0); Mean Corpuscular Volume 90.4 fL (80.0-98.0); Mean Platelet Volume 11.8 fL (9.4-12.3); Monocytes Absolute Auto 0.7 X10*3/uL (0.1-1.2); Monocytes Percent Auto 5.2 % (2-11); Neutrophils Absolute Auto 9.1 x10*3/uL (2.0-8.3); Neutrophils Percent Auto 63.7 % (45-73); Platelet Count 228 X10*3/uL (160-400); Red Blood Count 3.56 X10*6/uL (4.20-5.50); Red Cell Distribution Width 14.6 % (11.0-16.0); White Blood Count 14.3 X10*3/uL (4.8-10.8)
--- NOTE | 2024-03-12 08:53 | P.PNGS_ITS ---
Subjective Subjective Date of Service: 03/12/24 Patient reports: no new complaints and tolerating liquids well Interval history: 43-year-old female, postop day 2., remain in the hospital secondary to leukocytosis. Repeat labs show significant improvement, likely secondary to leukemoid reaction and mild dehydration. She remains completely asymptomatic. She is tolerating fluids, demonstrating good technique with incentive spirometry, has no complaints and is excited to go home Physical Exam 2 Vital Signs: Vital Signs: Last Vital Signs Temp 98.2 F 03/12/24 07:40 Pulse 80 03/12/24 07:40 Resp 16 03/12/24 07:40 BP 119/65 03/12/24 07:40 Pulse Ox 93 03/12/24 07:40 O2 Del Method Room Air 03/12/24 07:40 O2 Flow Rate 2 03/10/24 10:50 BMI result Body Mass Index 61.8 Const: General: no acute distress Orientation/consciousness: patient oriented x3 Resp: Effort & Inspection: normal respiratory effort Auscultation: clear to auscultation bilaterally GI: Inspection: Yes incision (Clean dry and intact) Neuro: General: patient oriented x3 Objective Data Active Medications Hydrochlorothiazide (Hydrochlorothiazide 12.5 Mg Tablet) 12.5 mg PO DAILY [facility] Last Admin: 03/12/24 08:27 Dose: Not Given Documented By: SHANTE Non-Admin Reason: Physician Held Med Hydromorphone HCl (Hydromorphone Hcl 0.5 Mg/0.5 Ml Syringe) 0.25 mg IVPUSH Q4H PRN; Protocol PRN Reason: Pain, Moderate(Pain Scale 4-6) Lactated Ringer's (Lr) 1,000 mls @ 100 mls/hr IVCONT .Q10H [facility] Last Admin: 03/12/24 05:31 Dose: 100 mls/hr Documented By: ESTHER Acetaminophen (Ofirmev) 1,000 mg in 100 mls @ 16.7 mls/hr IV .Q6H [facility] Last Admin: 03/12/24 05:31 Dose: 16.7 mls/hr Documented By: ESTHER Metoclopramide HCl (Metoclopramide Hcl 10 Mg/2 Ml Vial) 10 mg IVPUSH Q6H PRN PRN Reason: Nausea no relief from zofran Naloxone HCl (Naloxone Hcl 0.4 Mg/Ml Vial) 0.04 mg IVPUSH Q5M PRN PRN Reason: Excessive sedation or RR < 8 Ondansetron HCl (Ondansetron Hcl 4 Mg/2 Ml Vial) 4 mg IVPUSH Q8H PRN PRN Reason: Nausea Pantoprazole Sodium (Pantoprazole Sodium 40 Mg/10 Ml Vial) 40 mg IVPUSH DAILY@0630 [facility] Last Admin: 03/12/24 05:31 Dose: 40 mg Documented By: ESTHER Sodium Chloride (0.9 % Sodium Chloride Flush 3 Ml Syringe) 3 ml IVFLUSH QSHIFT [facility] Last Admin: 03/12/24 08:27 Dose: Not Given Documented By: SHANTE Non-Admin Reason: IV Running Spironolactone (Spironolactone 25 Mg Tablet) 25 mg PO DAILY [facility]; Protocol Last Admin: 03/12/24 08:27 Dose: Not Given Documented By: SHANTE Non-Admin Reason: Physician Held Med Valsartan (Valsartan 80 Mg Tablet) 80 mg PO DAILY [facility] Last Admin: 03/12/24 08:27 Dose: Not Given Documented By: SHANTE Non-Admin Reason: Physician Held Med Labs 03/12/24 07:29 03/11/24 06:05 Labs: Laboratory Results - last 24 hr 03/11/24 03/12/24 13:15 07:29 MCV 90.7 90.4 MCH 30.6 30.3 MCHC 33.8 33.5 RDW 14.5 14.6 Plt Count 261 228 MPV 11.4 11.8 Immature Gran % (Auto) 0.9 H 0.5 H Neut % (Auto) 81.9 H 63.7 Lymph % (Auto) 12.0 L 29.9 [place] % (Auto) 5.0 5.2 Eos % (Auto) 0.0 0.3 Baso % (Auto) 0.2 0.4 Lymph # (Auto) 2.9 4.3 [place] # (Auto) 1.2 0.7 Eos # (Auto) 0.0 0.0 Baso # (Auto) 0.1 0.1 Abs Immat Gran (auto) 0.23 H 0.07 H Absolute Neuts (auto) 20.0 H 9.1 H Absolute Nucleated RBC 0.000 0.000 Nucleated RBC % (auto) 0.0 0.0 Procedures Date of Service Date of Service: 03/12/24 Progress Note: A&P Assessment and plan (1) S/P laparoscopic sleeve gastrectomy: Status: Acute Assessment and Plan: Overall showing improvement, postop day 2, previously noted leukocytosis has significantly improved, likely secondary to leukemoid reaction from surgery and dehydration. Plan for discharge home today Plan Discussed with Dr. Tao Time Spent With Patient Time: Total time managing care of this patient today ____ minutes. Quality Stroke Does the patient have a stroke diagnosis?: No VTE Prior VTE?: No VTE Risk Level:: Surgical - moderate VTE Device Contraindication: Treatment Not Indicated VTE Drug Contraindication: N/A - Med Ordered
--- NOTE | 2024-03-12 09:09 | PC.NURSE ---
Discharge reviewed with patient, no questions at this time. IV Out, coming to get patient.
--- NOTE | 2024-03-12 09:23 | MHC.CM.PN ---
Patient medically cleared for dc home self care via private transport.
== END 2024-03-12 10:08 | disposition home or self-care (01) ==
LOC: HO.SSS 05:52 → HO.SSSA 10:13 → HO.S3 03-11 09:32
PROVIDERS: Nurse Practitioner; Physician Assistant Surgical; PCP Internal Medicine; Visit Provider Surgery
PROC: (CPT 43845; principal; 2024-03-10 07:30)
DX: E66.01 Morbid (severe) obesity due to excess calories (principal); Z68.44 Body mass index [BMI] 60.0-69.9, adult; I10 Essential (primary) hypertension; K21.9 Gastro-esophageal reflux disease without esophagitis; K76.0 Fatty (change of) liver, not elsewhere classified; G47.30 Sleep apnea, unspecified; E03.9 Hypothyroidism, unspecified; E50.9 Vitamin A deficiency, unspecified; Q43.3 Congenital malformations of intestinal fixation; E53.8 Deficiency of other specified B group vitamins; E55.9 Vitamin D deficiency, unspecified; Z79.899 Other long term (current) drug therapy; Z99.89 Dependence on other enabling machines and devices; Z88.0 Allergy status to penicillin; Z98.890 Other specified postprocedural states; Z87.891 Personal history of nicotine dependence
CPT/HCPCS: 43775; 43659; 49329; 36415; 71046; 80048; 81025; 85014; 85018; 85025; 86850; 86900; 86901; 88304; 88305; 88307; 88342; A4649; C9088; C9145; J0131; J0330; J1100; J1171; J1630; J1956; J2003; J2250; J2371; J2405; J2470; J2704; J2795; J3010; J7120

== ENCOUNTER → 2024-03-10 05:59 | Outpatient (BNV) | payer BC, SELFPAY | PROVIDERS: Admitting Provider Surgery; Visit Provider Surgery | DX: E66.813 Obesity, class 3 (principal); Z98.84 Bariatric surgery status | CPT/HCPCS: 43659; 43775; 99024; 99499 ==

== ENCOUNTER → 2024-03-11 08:35 | Outpatient (BNV) | payer BC, SELFPAY | PROVIDERS: Visit Provider Radiology Diagnostic Radiology | DX: D72.829 Elevated white blood cell count, unspecified (principal) | CPT/HCPCS: 71046 ==

== ENCOUNTER 2024-03-17 10:48 | Outpatient (AMB) | payer BC, SELFPAY ==
[2024-03-17 11:38] VITALS: BP 129/66; PULSE 83; O2SAT 97; BMI 60.7
--- NOTE | 2024-03-17 11:38 | A.OFFVIS_ITS ---
VS Expanded 03/17/24 11:38 BP 129/66 Blood Pressure Location Rt brachial Blood Pressure Position Sitting Pulse 83 Pulse Source Pulse Oximeter Pulse Oximetry 97 Oxygen Delivery Method Room Air Height 5 ft 3 in Weight 342 lb 12.8 oz BMI 60.7 Body Fat % 49.7 Body Fat Mass 170.2 Fat Free Mass 172.4 Visceral Fat Rating 21 Body Water % 36 Body Water Mass 123.2 Muscle Mass/Score 163.8 Basal Metabolic Rate/Score 2,513 Intake Visit Reasons: (OV) PO LSG 03/10/24 Residential Property Consultant Required: No Allergies Penicillins Allergy (Mild, Verified 03/17/24 11:44) rash Medication List - Last Reconciled 03/17/24 by Vasyl Goldstein RN fondaparinux 2.5 mg (0.5 mL) subcut Q24H irbesartan-hydrochlorothiazide 150-12.5 mg 1 tab PO DAILY levonorgestrel (Mirena) intrauterine levothyroxine 150 mcg PO DAILY ondansetron 4 mg PO Q6H PRN pantoprazole 40 mg PO DAILY spironolactone 25 mg PO DAILY sucralfate 10 mL PO BID tirzepatide (weight loss) (Zepbound) 12.5 mg (0.5 mL) subcut QWEEK HPI Comments Details: 43-year-old female, postop day 7. Status post sleeve gastrectomy on 03/10/2024. Tolerating 3 Premier protein shakes with 4 oz of ready to drink shake and 4 oz of almond milk. 50 oz of fluid and she has moved her bowels. [facility] Medical History (Updated 03/11/24 @ 00:00 by Background Daemon) PONV (postoperative nausea and vomiting) Hypothyroidism Sleep apnea treated with continuous positive airway pressure (CPAP) Hypertension Morbid obesity Surgical History (Updated 03/11/24 @ 00:00 by Background Daemon) History of esophagogastroduodenoscopy (EGD) (09/17/23) History of delivery (2015) Hx of oral surgery Family History Mother Hypertension Obesity Father No problems noted. Son No problems noted. Social History Household Members: Spouse and Children Household Members Other:: 3 Housing: House Are you a primary managed care provider to a significant other at home: Yes (son 8 yrs old) Do you presently have visiting nurse or other home services: No Alcohol intake: current Alcohol intake frequency: holidays/special occasions only Patient Tobacco Use Status: Never used Tobacco Substance Use Type: Marijuana service: No Physical Exam Vital Signs: Last Vital Signs Pulse 83 03/17/24 11:38 BP 129/66 03/17/24 11:38 Pulse Ox 97 03/17/24 11:38 Oxygen Delivery Method Room Air 03/17/24 11:38 BMI result Body Mass Index 60.7 GI Inspection: Yes incision (Clean, dry, intact.) Assessment & Plan Assessment & Plan (1) S/P laparoscopic sleeve gastrectomy: Code(s): Z98.84 - Bariatric surgery status Category: Surgical Plan: POD 7 s/p LSG on 03/10/[address] Tao Weight loss prior to surgery was 68.6 pounds or 16.3 % TBWL. Original weight on 08/07/2023 was 420.8 pounds and op weight was 352.2 pounds. Be sure to text Dr Tao exactly 1 week after surgery your weight from your home scale so he can adjust your meal plan. Continue meal plan until f/u cy Cavazos in 2 weeks May shower, no submersion in bath for another week Continue abdominal binder with activity and exercise for the next 2 weeks. Exercise prior to surgery was treadmill and may resume No abdominal exercises for 6 weeks post operatively Will be emailed link to post op video for review Reminded of the pace of drinking, 2 mL per minute, 1 oz/15 min.
== END 2024-03-17 13:19 | disposition home or self-care (01) ==
PROVIDERS: Visit Provider Physician Assistant Surgical
DX: Z98.84 Bariatric surgery status (principal)
CPT/HCPCS: 99024

== ENCOUNTER → 2024-03-17 10:48 | Outpatient (BNVA) | payer BC, SELFPAY | PROVIDERS: Visit Provider Physician Assistant Surgical ==

== ENCOUNTER 2024-03-23 13:49 | Outpatient (AMB) | payer BC, SELFPAY ==
--- NOTE | 2024-03-23 13:02 | MHC.OFFVISWM ---
VS Expanded 03/23/24 13:03 Height 5 ft 3 in Weight 337 lb BMI 59.7 Body Fat % 70 Fat Free Mass 101.2 Visceral Fat Rating 30 Body Water % 20.5 Muscle Mass/Score 95 Basal Metabolic Rate/Score 1,360 Intake Visit Reasons: (tV) PO LSG 03/10/24 Allergies Penicillins Allergy (Mild, Verified 03/17/24 11:44) rash Medication List - Last Reconciled 03/23/24 by BROCK Correa levonorgestrel (Mirena) intrauterine levothyroxine 150 mcg PO DAILY pantoprazole 40 mg PO DAILY sucralfate 10 mL PO BID HPI Comments Details: This?a?43?yo female who is s/p LSG without hiatal hernia repair on?03/10/2024. Presents for 13 day post op visit. Weight today is 337 pounds, with a BMI of 59.7. There has been a 83.8 pound weight loss,(initial weight 420.8 pounds) since starting the program on 08/07/2023 reflecting a 19.9 % total body weight loss and a weight loss of 15.2 pounds since surgery (operative weight 352.2 pounds) reflecting a 4.3 % TBWL since surgery. No complaints of nausea, emesis, abdominal pain or reflux. Reports infrequent but normal bowel movements every 2 days and uses stool softeners regularly. She states that she is unable to exercise further as she feels she will overdo it. Previously using pure protein bar, would like to start food. Present meal plan includes: Premier protein rtd shake 8-11, 12-3, 4-7 30 oz water ? Exercise routine includes: treadmill, 15 min 2 x per day, 50-60 per session, slight permanent incline, no gym membership. [facility] Medical History (Updated 03/20/24 @ 00:00 by Background Daemon) PONV (postoperative nausea and vomiting) Hypothyroidism Sleep apnea treated with continuous positive airway pressure (CPAP) Hypertension Morbid obesity Surgical History (Updated 03/20/24 @ 00:00 by Background Daemon) History of esophagogastroduodenoscopy (EGD) (09/17/23) History of delivery (2015) Hx of oral surgery Family History Mother Hypertension Obesity Father No problems noted. Son No problems noted. Social History Household Members: Spouse and Children Household Members Other:: 3 Housing: House Are you a primary pet care assistant to a significant other at home: Yes (son 8 yrs old) Do you presently have visiting nurse or other home services: No Alcohol intake: current Alcohol intake frequency: holidays/special occasions only Patient Tobacco Use Status: Never used Tobacco Substance Use Type: Marijuana service: No Telehealth Telehealth Telehealth Platform: Telephone Location of provider rendering services: practice address Location of patient: address on file Patient Identification confirmed using: Name, : Yes Telehealth method: voice only Patient verbally consented to treatment: Yes Patient verbally consented to billing insurance company: Yes Patient informed of any privacy concerns related to visit: Yes Minutes spent on Phone/Video with Pt.: 15 Assessment & Plan Assessment & Plan (1) S/P laparoscopic sleeve gastrectomy: Code(s): Z98.84 - Bariatric surgery status Category: Surgical Plan: Encouraged to increase exercise to 30 minutes twice a day and then 45 minutes daily than an hour daily. She wishes to incorporate some food. We will change meal plan accordingly. Utilizing premier protein ready to drink shake 8-11 shake 12-3 pure protein bar 4-7 shake 8-9 4 oz of shake Additionally, she states that she would like to add [place] yogurt. I suggested she wait until follow-up in 2 weeks however if she is going to incorporate it, she could do so instead of the pure protein bar over the 3 hour. Return to clinic 2 weeks
[2024-03-23 13:03] VITALS: BMI 59.7
== END 2024-03-23 13:59 | disposition home or self-care (01) ==
LOC: HO.HBS 13:49
PROVIDERS: Visit Provider Physician Assistant Surgical
DX: Z98.84 Bariatric surgery status (principal)
CPT/HCPCS: 99024

== ENCOUNTER 2024-04-27 14:54 | Outpatient (AMB) | payer BC, SELFPAY ==
--- OUTSIDE RECORDS SUMMARY | 2024-04-27 14:56 | XMS_ITS | Encounter Summary ---
Author Organization 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; Mixed hyperlipidemia; Primary hypertension; Leukocytosis, unspecified type Social History Tobacco Use Types Packs/Day Years Used Date Smoking Tobacco: Never Smokeless Tobacco: Never Alcohol Use Standard Drinks/Week Comments No 0 (1 standard drink = 0.6 oz pur e alcohol) Comments Unknown Sex and Gender Information Value Date Recorded Sex Assigned at Not on file Legal Sex Female 5:27 AM EST Gender Identity Not on file Sexual Orientation Not on file documented as of this encounter Last Filed Vital Signs Vital Sign Reading Time Taken Comments Blood Pressure 128/75 04/27/2024 10:31 AM EST Pulse 65 04/27/2024 10:31 AM EST Temperature - - Respiratory Rate - - Oxygen Saturation - - Inhaled Oxygen Concentration - - Weight 154 kg (339 lb 3.2 oz) 04/27/2024 10:31 A M EST Height 160 cm (5' 3 ) 04/27/2024 10:31 AM EST Body Mass Index 60.09 04/27/2024 10:31 AM EST documented in this encounter Progress Notes * Darwin Bhatia MD - 04/27/2024 10:30 AM EST CHIEF COMPLAINT: Hospital Follow-up IDENTIFIER: Margaret Gaitan is a 43 y.o. old female who comes alone. HPI: Margaret Gaitan is a 43 y.o. year old female who is here for a hospital follow up. Patient's medical history is significant for obstructive sleep apnea on CPAP, hypertension, hypothyroidism, GERD, liver cirrhosis and morbid obesity BMI 60. Patient was admitted at [facility] on 03/10/2024 for elective laparoscopic sleeve gastrectomy. Patient was discharged 2 days later. Patient is following with the surgeon at [facility]. Patient states that she is doing well since surgery. Patient states that she was told to hold her blood pressure medication as her blood pressure was within normal range. She has an appointment with surgeon today. Patient is taking all her vitamins as prescribed. Patient has hypothyroidism and her last TSH was checked a year ago and was mildly high 6.6. She is on levothyroxine 150 mcg daily. Patient is doing well and has no concerns today. Patient states that in the hospital she had mild leukocytosis and is not sure if that improved prior to discharge. She states that she is doing well and denies any cough, congestion, sore throat or fever. ROS: GENERAL: No malaise, significant weight loss or fever HEENT: No changes in hearing or vision, nose bleeds or other nasal problems RESPIRATORY: No cough, wheezing or shortness of breath CARDIOVASCULAR: No chest pain, leg swelling or palpitations GI: No abdominal discomfort, blood in stools or black stools NECK: No lumps, goiter, pain or significant neck swelling : No dysuria, frequency or incontinence MUSCULOSKELETAL: No joint pain or swelling, back pain, or muscle pain. SKIN: No lesions, rash or itching NEURO: No persistent headache, syncope, seizures, weakness or numbness PAST MEDICAL HISTORY: Patient Active Problem List Diagnosis Date Noted Morbid obesity with alveolar hypoventilation (CMS/HCC) 07/19/2018 Obstructive sleep apnea 06/27/2018 Hypertension 04/16/2016 Preeclampsia 04/16/2016 Hypothyroid 04/24/2014 ACTIVE MEDICATIONS: Outpatient Medications Marked as Taking for the 04/27/24 encounter (Office Visit) with Darwin Bhatia MD Medication Sig Dispense Refill levonorgestreL (MIRENA) 21 mcg/24hr (up to 8 yrs) 52 mg IUD 1 Each by Intrauterine route once. Inserted 06/2016 levothyroxine (SYNTHROID, LEVOTHROID) 150 mcg tablet TAKE 1 TABLET BY MOUTH EVERY DAY [id number] 90 tablet 0 ondansetron ODT (ZOFRAN-ODT) 4 mg disintegrating tablet PLEASE SEE ATTACHED FOR DETAILED DIRECTIONS pantoprazole (PROTONIX) 40 mg EC tablet Take 1 tablet (40 mg total) by mouth 1 (one) time each day before breakfast. sucralfate (CARAFATE) 100 mg/mL suspension take 10 mls by mouth twice daily [DISCONTINUED] cyanocobalamin, vitamin B-12, 1,000 mcg tablet, sublingual PLACE 1 TABLET UNDER TONGUE AND ALLOW TO DISSOLVE FOR AT LEAST 30 SECS BEFORE SWALLOWING [DISCONTINUED] irbesartan-hydroCHLOROthiazide (AVALIDE) 150-12.5 mg per tablet TAKE 1 TABLET BY MOUTH 1 TIME EACH DAY. 90 tablet 0 [DISCONTINUED] irbesartan-hydroCHLOROthiazide (AVALIDE) 150-12.5 mg per tablet Take 1 tablet by mouth 1 (one) time each day. [DISCONTINUED] spironolactone (ALDACTONE) 25 mg tablet TAKE 1 TABLET BY MOUTH 1 TIME EACH DAY. 90 tablet 0 ALLERGIES: Penicillins PHYSICAL EXAM: Visit Vitals BP 128/75 Pulse 65 Ht 1.6 m (63 ) Wt 154 kg (339 lb 3.2 oz) LMP 04/13/2024 BMI 60.09 kg/m?? Smoking Status Never BSA 2.42 m?? APPEARNCE: well appearing, awake, alert, in no acute distress EYES: PERRL, conjunctiva and sclera normal NOSE/SINUS: negative MOUTH/THROAT: no erythema or exudates NECK: Supple without any adenopathy HEART: regular rate, regular rhythm and no murmur RESPIRATORY: clear lungs bilaterally EXTREMITIES: No edema and Normal pulses bilaterally. NEURO: Awake, alert and oriented x 3, Normal gait and No involuntary motions. SKIN: No rashes or lesions. LABS: Lab Results Component Value Date CHOL 225 (A) 07/04/2022 LDL 149 (A) 07/04/2022 HDL 53 07/04/2022 TRIG 119 07/04/2022 No results found for: TSH IMPRESSION: 1. Hospital discharge follow-up 2. 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 Mixed hyperlipidemia Lipid panel with reflex to direct LDL 4. Primary hypertension Comprehensive metabolic panel 5. Leukocytosis, unspecified type CBC and differential PLAN: Information was extracted from the discharge notes from [facility]. The history was reviewed for accuracy and confirmed by myself. I have reconciled the current and discharge meds. Patient was admitted at [facility] on 03/10/2024 for sleeve gastrectomy. She was discharged after 2 days. Patient states that she is doing well after surgery. She has an appointment with her surgeon today. Hypothyroidism: Will recheck TSH level today. Recommend to continue with levothyroxine 150 mcg daily. Hyperlipidemia: Last lipid panel checked a year ago showed elevated LDL of 141. Will recheck lipid panel today. Recommend to continue with healthy diet and regular exercise. Hypertension: Blood pressure is within normal range without any blood pressure medication. Will discontinue spironolactone and irbesartan-hydrochlorothiazide. Recommend to continue to check blood pressure at home and inform us if elevated. Will check electrolytes and kidney function today. Patient had mild leukocytosis prior to discharge. Will check CBC today to make sure the white countis within normal range. Follow-up in 6 months for physical exam. ADDITIONAL ORDERS: None Today's documentation was made using voice recognition software.This note may contain grammatical errors secondary to this software. MD Darwin Kingston MD on 04/27/2024 at 10:54 AM EST documented in this encounter Plan of Treatment Upcoming Encounters Date Type Department Care Team (Late st Contact Info) Description 10/25/2024 4:00 PM EDT Office Visit [facility] [address] [place] [phone] Darwin Bhatia MD [address] [id number] documented as of this encounter Results * Comprehensive metabolic panel (04/27/2024 11:29 AM EST) [facility] Signature Sodium 142 133 - 145 mmol/L LAB CHEMISTRY METHOD 04/27/2024 2:48 PM [facility] Potassium 4.2 3.5 - 5.5 mmol/L LAB CHEMISTRY METHOD 04/27/2024 2:48 PM [facility] Chloride 106 96 - 110 mmol/L LAB CHEMISTRY METHOD 04/27/2024 2:48 PM [facility] CO2 30 21 - 32 mmol/L LAB CHEMISTRY METHOD 04/27/2024 2:48 PM [facility] Anion Gap 6 3 - 11 LAB CHEMISTRY METHOD 04/27/2024 2:48 PM [facility] Glucose 95 70 - 100 mg/dL LAB CHEMISTRY METHOD 04/27/2024 2:48 PM [facility] BUN 18 5 - 25 mg/dL LAB CHEMISTRY METHOD 04/27/2024 2:48 PM [facility] Creatinine 0.66 0.50 - 1.10 mg/dL LAB CHEMISTRY METHOD 04/27/2024 2:48 PM [facility] eGFR 113 >=60 mL/min/1. 73m2 LAB CHEMISTRY METHOD 04/27/2024 2:48 PM [facility] Comment:Calculation based on the??Chronic Kidney Disease Epidemiology Collaboration (CKD-EPI) equation refit??without adjustment for race. BUN/Creatinine Ratio 27.3 LAB CHEMISTRY METHOD 04/27/2024 2:48 PM [facility] Calcium 9.5 8.5 - 10.5 mg/dL LAB CHEMISTRY METHOD 04/27/2024 2:48 PM [facility] AST (SGOT) 15 10 - 42 unit/L LAB CHEMISTRY METHOD 04/27/2024 2:48 PM [facility] ALT (SGPT) 30 10 - 60 unit/L LAB CHEMISTRY METHOD 04/27/2024 2:48 PM [facility] Alkaline Phosphatase 78 42 - 121 unit/L LAB CHEMISTRY METHOD 04/27/2024 2:48 PM [facility] Total Protein 6.9 6.0 - 8.0 g/dL LAB CHEMISTRY METHOD 04/27/2024 2:48 PM [facility] Albumin 3.5 3.2 - 5.0 g/dL LAB CHEMISTRY METHOD 04/27/2024 2:48 PM [facility] Total Bilirubin 0.6 0.0 - 1.4 mg/dL LAB CHEMISTRY METHOD 04/27/2024 2:48 PM [facility] Blood Venous blood specimen / Unknown Venipuncture / Unknown 04/27/2024 11:29 AM EST 04/27/2024 11:29 AM EST Darwin Bhatia MD LAB BLOOD ORDERABLES Final Resu lt [facility] [address] [place] [address], [place] [phone] * (ABNORMAL) Lipid panel with reflex to direct LDL (04/27/2024 11:29 AM EST) Cholesterol 187 0 - 200 mg/dL LAB CHEMISTRY METHOD 04/27/2024 2:48 PM [facility] Triglycerides 122 0 - 150 mg/dL LAB CHEMISTRY METHOD 04/27/2024 2:48 PM [facility] HDL 42 >=40 mg/dL LAB CHEMISTRY METHOD 04/27/2024 2:48 PM [facility] LDL Calculated 121(H) 0 - 100 mg/dL LAB CHEMISTRY METHOD 04/27/2024 2:48 PM [facility] VLDL Cholesterol Yariel 24.4 mg/dL LAB CHEMISTRY METHOD 04/27/2024 2:48 PM [facility] Non HDL Chol. (LDL+VLDL) 145(H) <145 mg/dL LAB CHEMISTRY METHOD 04/27/2024 2:48 PM EST [facility] Chol/HDL Ratio 4.5(H) 0.0 - 4.4 LAB CHEMISTRY METHOD 04/27/2024 2:48 PM [facility] Blood Venous blood specimen / Unknown Venipuncture / Unknown 04/27/2024 11:29 AM EST 04/27/2024 11:29 AM EST Darwin Bhatia MD LAB BLOOD ORDERABLES Final Resu lt Performing Organization Address [facility]/ZIP Co de Phone Number [facility] [address] [place] [address], [place] [phone] * (ABNORMAL) Thyroid stimulating hormone with reflex to free t4 and free t3 (04/27/2024 11:29 AM EST) TSH 5.51(H) 0.40 - 4.00 mcIU/mL LAB CHEMISTRY METHOD 04/27/2024 2:56 PM EST [facility] Blood Venous blood specimen / Unknown Venipuncture / Unknown 04/27/2024 11:29 AM EST 04/27/2024 11:29 AM EST Darwin Bhatia MD LAB BLOOD ORDERABLES Final Resu lt Performing Organization Address [facility]/ZIP Co de Phone Number [facility] [address] [place] [address], [place] [phone] documented in this encounter Visit Diagnoses Diagnosis Hospital discharge follow-up- Primary Other follow-up examination 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 Discontinued by another clinician 04/19/2024 04/27/2024 cyanocobalamin, vitamin B-12, 1,000 mcg tablet, sublingual PLACE 1 TABLET UNDER TONGUE AND ALLOW TO DISSOLVE FOR AT LEAST 30 SECS BEFORE SWALLOWING Discontinued by another clinician 08/21/2023 04/27/2024 vitamin A 3,000 mcg (10,000 unit) capsule Take 1 capsule (10,000 Units total) by mouth 1 (one) time each day. Discontinued by another clinician 08/18/2023 04/27/2024 cholecalciferol (VITAMIN D-3) 125 mcg (5,000 unit) capsule Take 1 capsule (5,000 Units total) by mouth 1 (one) time each day. Discontinued by another clinician 08/18/2023 04/27/2024 spironolactone (ALDACTONE) 25 mg tablet TAKE 1 TABLET BY MOUTH 1 TIME EACH DAY. Prescriber Discontinued 04/19/2024 04/27/2024 irbesartan-hydroCHLOR Othiazide (AVALIDE) 150-12.5 mg per tablet Take 1 tablet by mouth 1 (one) time each day. Prescriber Discontinued 04/27/2024 documented as of this encounter Historical Medications * This list may reflect changes made after this encounter. ondansetron ODT (ZOFRAN-ODT) 4 mg disintegrating tablet PLEASE SEE ATTACHED FOR DETAILED DIRECTIONS 02/11/2024 sucralfate (CARAFATE) 100 mg/mL suspension take 10 mls by mouth twice daily 02/22/2024 pantoprazole (PROTONIX) 40 mg EC tablet Take 1 tablet (40 mg total) by mouth 1 (one) time each day before breakfast. 02/11/2024 irbesartan-hydroCHL OROthiazide (AVALIDE) 150-12.5 mg per tablet Take 1 tablet by mouth 1 (one) time each day. 5 added in this encounter Care Teams Licensed Land Surveyor Relationship Specialty Start Date End Date Darwin Bhatia MD [address] [place] [id number] PCP - General Internal Medicine 02/07/21 documented as of this encounter
--- OUTSIDE RECORDS SUMMARY | 2024-04-27 14:56 | XMS_ITS | Clinical Summary ---
Author Organization [facility] Building Address [address] [place] [phone] Phone Care Team Providers Care Bee Keeper Name Role Phone Darwin Bhatia MD Primary Care Provider Allergies Active Allergy Reactions Criticality Noted Date Comments Penicillins 03/31/2014 Unknow reaction pt states she had a reacton when she a a she was told by her mother. Medications levothyroxine (SYNTHROID, LEVOTHROID) 150 mcg tablet TAKE 1 TABLET BY MOUTH EVERY DAY [id number] 90 tablet 025 Active levonorgestreL (MIRENA) 21 mcg/24hr (up to 8 yrs) 52 mg IUD 1 Each by Intrauterine route once. Inserted 06/2016 Active pantoprazole (PROTONIX) 40 mg EC tablet Take 1 tablet (40 mg total) by mouth 1 (one) time each day before breakfast. Active sucralfate (CARAFATE) 100 mg/mL suspension take 10 mls by mouth twice daily Active ondansetron ODT (ZOFRAN-ODT) 4 mg disintegrating tablet PLEASE SEE ATTACHED FOR DETAILED DIRECTIONS Active cholecalciferol (VITAMIN D-3) 125 mcg (5,000 unit) capsule Take 1 capsule (5,000 Units total) by mouth 1 (one) time each day. 2024 Discontinued(D iscontinued by another clinician) cyanocobalamin, vitamin B-12, 1,000 mcg tablet, sublingual PLACE 1 TABLET UNDER TONGUE AND ALLOW TO DISSOLVE FOR AT LEAST 30 SECS BEFORE SWALLOWING 2024 Discontinued(D iscontinued by another clinician) levothyroxine (SYNTHROID, LEVOTHROID) 150 mcg tablet Take 1 tablet (150 mcg total) by mouth 1 (one) time each day. 024 2024 Discontinued(R eorder) irbesartan-hydroC HLOROthiazide (AVALIDE) 150-12.5 mg per tablet Take 1 tablet by mouth 1 (one) time each day. 90 tablet 024 2024 Discontinued spironolactone (ALDACTONE) 25 mg tablet Take 1 tablet (25 mg total) by mouth 1 (one) time each day. 90 tablet 024 2024 Discontinued levothyroxine (SYNTHROID, LEVOTHROID) 150 mcg tablet Take 1 tablet (150 mcg total) by mouth 1 (one) time each day. 30 tablet 025 2024 Discontinued vitamin A 3,000 mcg (10,000 unit) capsule Take 1 capsule (10,000 Units total) by mouth 1 (one) time each day. 024 2024 Discontinued(D iscontinued by another clinician) spironolactone (ALDACTONE) 25 mg tablet TAKE 1 TABLET BY MOUTH 1 TIME EACH DAY. 90 tablet 025 2024 Discontinued(P rescriber Discontinued) irbesartan-hydroC HLOROthiazide (AVALIDE) 150-12.5 mg per tablet TAKE 1 TABLET BY MOUTH 1 TIME EACH DAY. 90 tablet 025 2024 Discontinued(D iscontinued by another clinician) irbesartan-hydroC HLOROthiazide (AVALIDE) 150-12.5 mg per tablet Take 1 tablet by mouth 1 (one) time each day. 2024 Discontinued(P rescriber Discontinued) Active Problems Problem Noted Date Diagnosed Date Morbid obesity with alveolar hypoventilation Obstructive sleep apnea 06/27/2018 Overview (04/05/2024): [facility] Home Polysomnogram: Date 06/23/2018; Wt 380#; BMI 67; ETHAN 106, AI 96; HI 10; Unclassified apneas 4; Obstructive apneas 692; Central apneas 15; Mixed apneas 2; hypopneas 72; average oxygen saturation 81% (lowest 65% with saturations <88% for 5% or more of study) [facility] Sleep Center Polysomnogram treatment study. Date 09/06/2018. Wt 380#; BMI 67; SE 56 % SM 56 %; spent 17 % of the study in REM. On CPAP @ 12; RDI 0 (AHI 0), Central apneas 0; Obstructive apneas 0; Mixed apneas 0; hypopneas 0; RERAs 0; and, average oxygen saturation was 96%. For the entire study, PLMs ~3. - Obstructive Sleep Apnea - severe; mostly obstructive apneas; with sleep related hypoventilation by 2018 home polysomnogram. 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; Mixed hyperlipidemia; Primary hypertension; Leukocytosis, unspecified type 03/14/2024 Telephone Internal Medicine - [address] [phone] Yazmin Horton RN from Last 3 Months Immunizations Name Administration Dates Next Due Influenza trivalent, 0.5mL, preservative free (Fluarix; FluLaval; Fluzone) ages 6mo and older (Afluria) 3 years and older 12/22/2018,12/23/2017,12/24/2016,2014 Moderna SARS-CoV-2 COVID-19, mRNA, LNP-S, preservative free 01/02/2021,06/09/2020,05/12/2020 Tdap Tetanus diptheria acell ular pertussis (Boostrix; Adacel) 7yo and older 11/27/2014 Surgical History Surgery Date Site/Laterality Comments WISDOM TOOTH EXTRACTION PROCEDURE: HISTORICAL WISDOM TEETH EXTRACTION Medical History Medical History Date Comments Hypothyroid DX:Hypothyroid Hypertension 04/16/2016 Family History Medical History Relation Name Comments Other: Other Sister Arthritis Neg Hx Bladder Cancer Neg Hx Blindness Neg Hx Breast cancer Neg Hx Cancer of Small Bowel Neg Hx Cataracts Neg Hx Colon cancer Neg Hx Coronary artery disease Neg Hx Diabetes Neg Hx Eclampsia Neg Hx Esophageal cancer Neg Hx Glaucoma Neg Hx Hypertension Neg Hx Kidney cancer Neg Hx Liver cancer Neg Hx Lung cancer Neg Hx Macular degeneration Neg Hx Melanoma Neg Hx Other cancer Neg Hx Ovarian cancer Neg Hx Pancreatic cancer Neg Hx labor Neg Hx Prostate cancer Neg Hx Spontaneous Abortions Neg Hx Stomach cancer Neg Hx Strabismus Neg Hx Stroke Neg Hx Relation Name Status Comments Sister Social History Tobacco Use Types Packs/Day Years Used Date Smoking Tobacco: Never Smokeless Tobacco: Never Alcohol Use Standard Drinks/Week Comments No 0 (1 standard drink = 0.6 oz pur e alcohol) Comments Unknown Sex and Gender Information Value Date Recorded Sex Assigned at Not on file Legal Sex Female 5:27 AM EST Gender Identity Not on file Sexual Orientation Not on file Obstetrics History Last Filed Vital Signs Vital Sign Reading [...] Mass Index 60.09 04/27/2024 10:31 AM EST Plan of Treatment Upcoming Encounters Date Type Department Care Team (Late st Contact Info) Description 10/25/2024 4:00 PM EDT Office Visit Taxi Driver Supervisor [facility] [address] [place] [phone] Darwin Bhatia MD [address] [place] [address] Health Maintenance Due Date Last Done Comments Breast Cancer Screening 1982 Hepatitis B Vaccines (1 of 3 - 19+ 3-dose series) 2001 Cervical Cancer Screening: Pap Smear 05/24/2021 05/24/2018 Depression Screening 02/15/2022 HIV Screening 02/15/2022 Hepatitis C Screening 02/15/2022 Social Influencers of Health Screening 02/15/2022 Hypertension/CHF/CAD Annual BMP Blood Test 07/05/2023 04/27/2024, 07/04/2022 COVID-19 Vaccine ( season) 2023 01/11/2022, 01/02/2021, 06/09/2020, Additional history exists Influenza Vaccine (#1) 2023 2, 12/12/2020, 03/15/2020, Additional history exists DTaP,Tdap,and Td Vaccines (3 - Td or Tdap) 01/15/2026 01/16/2016, 11/27/2014 Cholesterol Screening (Lipid Panel) 07/05/2027 04/27/2024, 07/04/2022 HIB Vaccines Aged Out No longer eligi ble based on patient's age to complete this topic HPV Vaccines Aged Out No longer eligi ble based on patient's age to complete this topic Hepatitis A Vaccines Aged Out No long er eligible based on patient's age to complete this topic IPV Vaccines Aged Out No longer eligi ble based on patient's age to complete this topic MMR Vaccines Aged Out No longer eligi ble based on patient's age to complete this topic Meningococcal ACWY Vaccine Aged Out N o longer eligible based on patient's age to complete this topic Meningococcal B Vacine Aged Out No lo nger eligible based on patient's age to complete this topic Pneumococcal Vaccine: Pediatrics (0 to 5 Years) and At-Risk Patients (6 to 64 Years) Aged Out No longer eligible based on patient's age to complete this topic RSV Immunization Patients Under 20 months Aged Out No longer eligible based on patient's age to complete this topic Varicella Vaccines Aged Out No longer eligible based on patient's age to complete this topic Procedures Procedure Name Priority Date/Time Associated Diagnosis Comments CBC WITH AUTO DIFFERENTIAL Routine 04/27/2024 11:29 AM EST Leukocytosis, unspecified type THYROID STIMULATING HORMONE WITH REFLEX TO FREE T4 AND FREE T3 Routine 04/27/2024 11:29 AM EST 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 LIPID PANEL WITH REFLEX TO DIRECT LDL Routine 04/27/2024 11:29 AM EST Mixed hyperlipidemia COMPREHENSIVE METABOLIC PANEL Routine 04/27/2024 11:29 AM EST Primary hypertension CBC AND DIFFERENTIAL Routine 04/27/2024 11:29 AM EST Leukocytosis, unspecified type EXTERNAL CLINICAL LAB 03/04/2024 PAP SMEAR Routine 05/24/2018 from Last 3 Months or Most Recently Relevant to Health Maintenance Results * (ABNORMAL) Thyroid stimulating hormone with reflex to free t4 and free t3 (04/27/2024 11:29 AM EST) Pathologist [facility] TSH 5.51(H) 0.40 - 4.00 mcIU/mL LAB CHEMISTRY METHOD 04/27/2024 2:56 PM EST [facility] Blood Venous blood specimen / Unknown Venipuncture / Unknown 04/27/2024 11:29 AM EST 04/27/2024 11:29 AM EST us Darwin Bhatia MD LAB BLOOD ORDERABLES Final Resu lt [facility] [address] [place] [address], [place] [phone] * (ABNORMAL) Lipid panel with reflex to direct LDL (04/27/2024 11:29 AM EST) Pathologist [facility] Cholesterol 187 0 - 200 mg/dL LAB CHEMISTRY METHOD 04/27/2024 2:48 PM EST [facility] Triglycerides 122 0 - 150 mg/dL LAB CHEMISTRY METHOD 04/27/2024 2:48 PM EST [facility] HDL 42 >=40 mg/dL LAB CHEMISTRY METHOD 04/27/2024 2:48 PM EST [facility] LDL Calculated 121(H) 0 - 100 mg/dL LAB CHEMISTRY METHOD 04/27/2024 2:48 PM EST [facility] VLDL Cholesterol Yariel 24.4 mg/dL LAB CHEMISTRY METHOD 04/27/2024 2:48 PM EST [facility] Non HDL Chol. (LDL+VLDL) 145(H) <145 mg/dL LAB CHEMISTRY METHOD 04/27/2024 2:48 PM EST [facility] Chol/HDL Ratio 4.5(H) 0.0 - 4.4 LAB CHEMISTRY METHOD 04/27/2024 2:48 PM EST [facility] Blood Venous blood specimen / Unknown Venipuncture / Unknown 04/27/2024 11:29 AM EST 04/27/2024 11:29 AM EST Darwin Bhatia MD LAB BLOOD ORDERABLES Final Resu lt [facility] [address] [place] [address], * (ABNORMAL) CBC auto differential (04/27/2024 11:29 AM EST) WBC 10.4 4.8 - 10.8 K/mcL LAB HEMETOLOGY METHOD 04/27/2024 2:41 PM [facility] RBC 4.00 3.80 - 4.80 M/mcL LAB HEMETOLOGY METHOD 04/27/2024 2:41 PM [facility] Hemoglobin 12.0 11.5 - 16.0 g/dL LAB HEMETOLOGY METHOD 04/27/2024 2:41 PM [facility] Hematocrit 38.5 35.0 - 47.0 % LAB HEMETOLOGY METHOD 04/27/2024 2:41 PM [facility] MCV 96.5 79.0 - 98.0 FL LAB HEMETOLOGY METHOD 04/27/2024 2:41 PM [facility] MCH 30.1 27.0 - 32.0 pcg LAB HEMETOLOGY METHOD 04/27/2024 2:41 PM [facility] MCHC 31.2(L) 32.0 - 37.0 g/dL LAB HEMETOLOGY METHOD 04/27/2024 2:41 PM [facility] RDW 14.7 11.0 - 15.0 % LAB HEMETOLOGY METHOD 04/27/2024 2:41 PM [facility] Platelets 231 130 - 400 K/mcL LAB HEMETOLOGY METHOD 04/27/2024 2:41 PM [facility] MPV 12.9(H) 7.0 - 11.0 FL LAB HEMETOLOGY METHOD 04/27/2024 2:41 PM [facility] NRBC 0.0 <1.0 % LAB HEMETOLOGY METHOD 04/27/2024 2:41 PM [facility] NRBC Absolute 0.00 <0.10 K/mcL LAB HEMETOLOGY METHOD 04/27/2024 2:41 PM [facility] Neutrophils Relative 63.4 % LAB HEMETOLOGY METHOD 04/27/2024 2:41 PM [facility] Lymphocytes Relative 26.3 % LAB HEMETOLOGY METHOD 04/27/2024 2:41 PM [facility] Monocytes Relative 7.6 % LAB HEMETOLOGY METHOD 04/27/2024 2:41 PM [facility] Eosinophils Relative 1.5 % LAB HEMETOLOGY METHOD 04/27/2024 2:41 PM [facility] Basophils Relative 0.7 % LAB HEMETOLOGY METHOD 04/27/2024 2:41 PM [facility] Immature Granulocytes Relative 0.5 % LAB HEMETOLOGY METHOD 04/27/2024 2:41 PM [facility] Neutrophils Absolute 6.57 1.50 - 7.00 K/mcL LAB HEMETOLOGY METHOD 04/27/2024 2:41 PM [facility] Lymphocytes Absolute 2.73 1.00 - 5.00 K/mcL LAB HEMETOLOGY METHOD 04/27/2024 2:41 PM EST [facility] Monocytes Absolute 0.79 0.20 - 1.00 K/mcL LAB HEMETOLOGY METHOD 04/27/2024 2:41 PM EST [facility] Eosinophils Absolute 0.16 0.00 - 0.50 K/mcL LAB HEMETOLOGY METHOD 04/27/2024 2:41 PM EST [facility] Basophils Absolute 0.07 0.00 - 0.20 K/mcL LAB HEMETOLOGY METHOD 04/27/2024 2:41 PM EST [facility] Immature Granulocytes Absolute 0.05(H) 0.00 - 0.03 K/mcL LAB HEMETOLOGY METHOD 04/27/2024 2:41 PM EST [facility] Blood Venous blood specimen / Unknown Venipuncture / Unknown 04/27/2024 11:29 AM EST 04/27/2024 11:29 AM EST Darwin Bhatia MD LAB BLOOD ORDERABLES Final Resu lt [facility] [address] [place] [address], * Comprehensive metabolic panel (04/27/2024 11:29 AM EST) Sodium 142 133 - 145 mmol/L LAB CHEMISTRY METHOD 04/27/2024 2:48 PM EST [facility] Potassium 4.2 3.5 - 5.5 mmol/L LAB CHEMISTRY METHOD 04/27/2024 2:48 PM EST [facility] Chloride 106 96 - 110 mmol/L LAB CHEMISTRY METHOD 04/27/2024 2:48 PM EST [facility] CO2 30 21 - 32 mmol/L LAB CHEMISTRY METHOD 04/27/2024 2:48 PM [facility] Anion Gap 6 3 - 11 LAB CHEMISTRY METHOD 04/27/2024 2:48 PM [facility] Glucose 95 70 - 100 mg/dL LAB CHEMISTRY METHOD 04/27/2024 2:48 PM [facility] BUN 18 5 - 25 mg/dL LAB CHEMISTRY METHOD 04/27/2024 2:48 PM [facility] Creatinine 0.66 0.50 - 1.10 mg/dL LAB CHEMISTRY METHOD 04/27/2024 2:48 PM [facility] eGFR 113 >=60 mL/min/1. 73m2 LAB CHEMISTRY METHOD 04/27/2024 2:48 PM [facility] Comment:Calculation based on the??Chronic Kidney Disease Epidemiology Collaboration (CKD-EPI) equation refit??without adjustment for race. BUN/Creatinine Ratio 27.3 LAB CHEMISTRY METHOD 04/27/2024 2:48 PM [facility] Calcium 9.5 8.5 - 10.5 mg/dL LAB CHEMISTRY METHOD 04/27/2024 2:48 PM [facility] AST (SGOT) 15 10 - 42 unit/L LAB CHEMISTRY METHOD 04/27/2024 2:48 PM [facility] ALT (SGPT) 30 10 - 60 unit/L LAB CHEMISTRY METHOD 04/27/2024 2:48 PM [facility] Alkaline Phosphatase 78 42 - 121 unit/L LAB CHEMISTRY METHOD 04/27/2024 2:48 PM [facility] Total Protein 6.9 6.0 - 8.0 g/dL LAB CHEMISTRY METHOD 04/27/2024 2:48 PM [facility] Albumin 3.5 3.2 - 5.0 g/dL LAB CHEMISTRY METHOD 04/27/2024 2:48 PM [facility] Total Bilirubin 0.6 0.0 - 1.4 mg/dL LAB CHEMISTRY METHOD 04/27/2024 2:48 PM EST [facility] Blood Venous blood specimen / Unknown Venipuncture / Unknown 04/27/2024 11:29 AM EST 04/27/2024 11:29 AM EST Darwin Bhatia MD LAB BLOOD ORDERABLES Final Resu lt [facility] [address] [place] [address], * External clinical lab (03/04/2024) Provider [facility] LAB BLOOD ORDERABLES Fin al Result * Pap Smear (05/24/2018) Pap smear Normal, abstracted Historical Provider HEALTH MAINTENANCE Final Result from Last 3 Months or Most Recently Relevant to Health Maintenance Insurance [employer] Care Teams Bee Keeper Relationship Specialty Start Date End Date Darwin Bhatia MD [address] [address] PCP - General Internal Medicine 02/07/21
--- OUTSIDE RECORDS SUMMARY | 2024-04-27 14:56 | XMS_ITS ---
Author Organization [address] Address [address] [place] [phone] Phone Care Team Providers Care Nursing Services Manager Name Role Phone Darwin Bhatia MD Primary Care Provider [phone] Transitional Care Management Status:Closed (Closed) Start date:03/12/2024 Enrollment date:03/14/2024 Enrollment reason:Identified using hospital discharge data End date:04/13/2024 Close reason:Completed program Continued Care and Services Coordination
--- OUTSIDE RECORDS SUMMARY | 2024-04-27 14:56 | XMS_ITS | Clinical Summary ---
Author Organization [facility] [employer] [facility] [place] Address [address] [facility] [address] [place] [address] Care Team Providers Care Equip Tech Name Role Phone No, Pcp CONTAINER SHOP WELDER Primary Care Provider Unavailabl e Allergies Active Allergy Reactions Criticality Noted Date Comments Penicillins Shortness Of Breath High 11/21/2014 Medications chlorhexidine (PERIDEX) 0.12 % solution 10/05/2014 Active levothyroxine (SYNTHROID, LEVOTHROID) 75 MCG tablet 11/20/2014 Active DENTA 5000 PLUS 1.1 % crea 10/05/2014 Active Immunizations Name Administration Dates Next Due Tdap 11/27/2014 Social History Tobacco Use Types Packs/Day Years Used Date Smoking Tobacco: Never Comments No Sex and Gender Information Value Date Recorded Sex Assigned at Not on file Legal Sex Female 4:14 PM EDT Gender Identity Not on file Sexual Orientation Not on file Last Filed Vital Signs Vital Sign Reading Time Taken Comments Blood Pressure 118/90 11/21/2014 4:27 PM EDT Pulse 99 10/19/2020 5:11 PM EDT Temperature 36.1 ??C (97 ??F) 10/19/2020 5:11 PM EDT Respiratory Rate 14 11/21/2014 4:27 PM EDT Oxygen Saturation 96% 10/19/2020 5:11 PM EDT Inhaled Oxygen Concentration - - Weight 148 kg (326 lb) 11/21/2014 4:27 PM EDT Height 160 cm (5' 3 ) 11/21/2014 4:27 PM EDT Body Mass Index 57.75 11/21/2014 4:27 PM EDT Plan of Treatment Health Maintenance Due Date Last Done Comments Depression: Screening Annual ly using PHQ-2/9 in Adults 18 yrs or above (or HM Modifier)([facility]) 2000 Hepatitis C Virus Infection in Adolescents and Adults: Screening (or Modifier) ([facility]) 2000 SDOH Screening Reminder: Annually for all adults ([facility]) 2000 Tobacco Smoking Cessation: i n Adults excluding Women: Behavioral and Pharmacotherapy Interventions ([facility]) 2000 Cervical Cancer Screenin-65 yrs of age (or Modifier) 09/21/2003 Cervical Cancer Screening: P ap every 3 yrs pts age 21-65 09/21/2003 Cervical Cancer: Pap Screeni ng with Modifier timing ([facility]) 09/21/2003 Cervical Cancer: hrHPV alone or with cotesting Pap for Pts 30-65yrs screening every 5yrs ([facility]) 09/21/2003 Flu Vaccination: Yearly for ages 18mos through 64 years (or Modifier)([facility]) 10/08/2023 COVID-19 Vaccine Screening: Initial Series and Booster Status ([facility]) ( - 2023- season) 2023 06/09/2020, 05/12/2020 DTaP/Tdap/Td Vaccines ([facility]) (2 - Td or Tdap) 11/27/2024 11/27/2014 Zoster/Shingles Vaccine Seri es Screening: Adults aged 18+ yrs (or HM Modifiers)([facility]) (1 of 2) 2032 Lipid Screening: Once for Wo men aged 20 to 45 yrs ([facility]) Completed 08/28/2020 Pneumococcal Vaccination Screening: Pts 0-19 & 19-64 yrs of age ([facility]) Aged Out No longer eligible based on patient's age to complete this topic Medical Devices Not on file Insurance [facility] Care Teams Equip Tech Relationship Specialty Start Date End Date No, Pcp, CONTAINER SHOP WELDER N/A Do not use PCP - General 11/21/14
--- NOTE | 2024-04-27 15:03 | A.OFFVIS_ITS ---
VS Expanded 04/27/24 15:10 BP 128/75 Blood Pressure Location Rt brachial Blood Pressure Position Sitting Pulse 72 Pulse Source Pulse Oximeter Temp 98.2 F Temperature Source Temporal Artery Scan Pulse Oximetry 99 Oxygen Delivery Method Room Air Height 5 ft 3 in Weight 337 lb BMI 59.7 Body Fat % 46. Body Fat Mass 156.8 Fat Free Mass 180.2 Visceral Fat Rating 19.0 Body Water % 38.2 Body Water Mass 128.8 Muscle Mass/Score 171.0 Basal Metabolic Rate/Score 2,600 Intake Visit Reasons: (OV) PO LSG 03/10/24 see comment Allergies Penicillins Allergy (Mild, Verified 04/27/24 15:07) rash HPI Comments Details: This?a?43?yo female who is s/p LSG without hiatal hernia repair on?03/10/2024. Presents for 1.5 month post op visit. Weight today is 337 pounds, with a BMI of 59.7. There has been a 83.8 pound weight loss,(initial weight 420.8 pounds) sin ce starting the program on 08/07/2023 reflecting a 19.9 % total body weight loss and a weight loss of 15.2 pounds since surgery (operative weight 352.2 pounds) reflecting a 4.3 % TBWL since surgery. No complaints of nausea, emesis, abdominal pain or reflux. Reports infrequent but normal bowel movements every 2 days and uses stool softeners regularly. Her scale at home revealed a weight of 337 back in March 2024 however when looking at the body composition data from today as compared to our body composition scale data from March 17, she has lost approximately 5.8 lb and a proximally 14 lb of body fat while gaining approximately 8 lb of muscle. She states she would like to start eggs, chicken, broccoli Present meal plan includes: Premier protein rtd shake 630-930, 1130-230, pure protein bar 330-630 730-830 4 oz of shake 24 oz water ? Exercise routine includes: treadmill, 45 min per day, 4-6 x per week, 290 per session, slight permanent incline, no gym membership. [facility] Medical History (Updated 03/20/24 @ 00:00 by Background Daemon) PONV (postoperative nausea and vomiting) Hypothyroidism Sleep apnea treated with continuous positive airway pressure (CPAP) Hypertension Morbid obesity Surgical History (Updated 04/27/24 @ 15:08 by Irina Jackson CMA) S/P laparoscopic sleeve gastrectomy History of esophagogastroduodenoscopy (EGD) (09/17/23) History of delivery (2016) Hx of oral surgery Family History Mother Hypertension Obesity Father No problems noted. Son No problems noted. Social History Household Members: Spouse and Children Household Members Other:: 3 Housing: House Are you a primary career development counselor to a significant other at home: Yes (son 8 yrs old) Do you presently have visiting nurse or other home services: No Alcohol intake: current Alcohol intake frequency: holidays/special occasions only Patient Tobacco Use Status: Never used Tobacco Substance Use Type: Marijuana service: No Physical Exam Const General: healthy appearing and no acute distress Resp Effort & Inspection: normal respiratory effort Auscultation: clear to auscultation bilaterally Cardio Rate: regular rate Rhythm: regular rhythm GI Auscultation: normal bowel sounds Extrem General: Yes normal to inspection Assessment & Plan Assessment & Plan (1) S/P laparoscopic sleeve gastrectomy: Code(s): Z98.84 - Bariatric surgery status Category: Surgical Plan: Patient wishes an introducer food at this point, change meal plan: Premier protein rtd shake 630-930, 1130-230, pure protein bar 330-630 730-830 4 forks of scrambled egg or weight flush fish or dark meat chicken Encouraged to increase exercise to 60 minutes and 7 days a week. Follow-up in the office in 1 month Additionally, given the fact that her scale at home was so different from a body composition standpoint then the tanita here in the office today and the 1 from 03/17/2024, I have recommended that she reset her scale at home and continue to send measurements weekly.
[2024-04-27 15:10] VITALS: BP 128/75; PULSE 72; TEMP 36.8; O2SAT 99; BMI 59.7
== END 2024-04-27 15:54 | disposition home or self-care (01) ==
PROVIDERS: Visit Provider Physician Assistant Surgical
DX: Z98.84 Bariatric surgery status (principal)
CPT/HCPCS: 99024

== ENCOUNTER → 2024-04-27 14:54 | Outpatient (BNVA) | payer BC, SELFPAY | PROVIDERS: Visit Provider Physician Assistant Surgical ==

== ENCOUNTER 2024-05-23 13:48 | Outpatient (AMB) | payer BC, SELFPAY ==
--- NOTE | 2024-05-23 13:53 | MHC.OFFVISWM ---
VS Expanded 05/23/24 13:58 BP 134/79 Blood Pressure Location Rt brachial Blood Pressure Position Sitting Pulse 84 Pulse Source Pulse Oximeter Temp 97.0 F Temperature Source Temporal Artery Scan Pulse Oximetry 99 Oxygen Delivery Method Room Air Height 5 ft 3 in Weight 319 lb 9.6 oz BMI 56.6 Body Fat % 46.2 Body Fat Mass 147.8 Fat Free Mass 171.8 Visceral Fat Rating 18.0 Body Water % 38.4 Body Water Mass 122.8 Muscle Mass/Score 163.2 Basal Metabolic Rate/Score 2,465 Intake Visit Reasons: (OV) PO LSG 03/10/24 Visual Basic Developer Required: No Allergies Penicillins Allergy (Mild, Verified 05/23/24 14:00) rash Medication List - Last Reconciled 05/23/24 by BROCK Correa levonorgestrel (Mirena) intrauterine levothyroxine 150 mcg PO DAILY shzfbtjyrcvl-myn-uyzi-FA-vit K 45 mg iron- 800 mcg-120 mcg (Bariatric Multivitamins) caps PO pantoprazole 40 mg PO DAILY sucralfate 10 mL PO BID HPI Comments Details: This?a?43?yo female who is s/p LSG without hiatal hernia repair on?03/10/2024. Presents for 2.5 month post op visit. Weight today is 319.6 pounds, with a BMI of 56.6. There has been a 101.2 pound weight loss,(initial weight 420.8 pounds) since starting the program on 08/07/2023 reflecting a 24 % total body weight loss and a weight loss of 32.6 pounds since surgery (operative weight 352.2 pounds) reflecting a 9.2 % TBWL since surgery. No complaints of nausea, emesis, abdominal pain or reflux. Reports infrequent but normal bowel movements every 2 days and uses stool softeners regularly. She has significantly improved mobility. She is now able to walk her street without difficulty. Wants to be able to incorporate different proteins. Present meal plan includes: Premier protein rtd shake 630-930, 1130-230, pure protein bar [phone] 4 forks of scrambled egg or weight flesh fish or dark meat chicken 24 oz water ? Exercise routine includes: treadmill, 45-50 min per day, 2 x per week, 300 per session, slight permanent incline, no gym membership yet, going to join [facility] in summer.. walking outside 4-5 days per week, 1 hr, 1.5 mi, 304 [address]onse, PFSH Medical History (Updated 03/20/24 @ 00:00 by Rian Angeles) PONV (postoperative nausea and vomiting) Hypothyroidism Sleep apnea treated with continuous positive airway pressure (CPAP) Hypertension Morbid obesity Surgical History S/P laparoscopic sleeve gastrectomy History of esophagogastroduodenoscopy (EGD) (09/17/23) History of delivery (2015) Hx of oral surgery Family History Mother Hypertension Obesity Father No problems noted. Son No problems noted. Social History Household Members: Spouse and Children Household Members Other:: 3 Housing: House Are you a primary managed care provider to a significant other at home: Yes (son 8 yrs old) Do you presently have visiting nurse or other home services: No Alcohol intake: former Patient Tobacco Use Status: Never used Tobacco Substance Use Type: Marijuana service: No Physical Exam Const General: healthy appearing and no acute distress Resp Effort & Inspection: normal respiratory effort Auscultation: clear to auscultation bilaterally Cardio Rate: regular rate Rhythm: regular rhythm GI Auscultation: normal bowel sounds Extrem General: Yes normal to inspection Assessment & Plan Assessment & Plan (1) S/P laparoscopic sleeve gastrectomy: Code(s): Z98.84 - Bariatric surgery status Category: Surgical Plan: Patient is doing well. Making good progress. She may expand her protein choices to include white flush fish, dark meat chicken, weight meat chicken, pork tender line, shrimp, salmon. She may include vegetables such as cooked green beans, zucchini, summer squash, broccoli, cauliflower, spinach, Kale. Encouraged to add 1-2 lb wrist and ankle weights during her walks as she feels as though walking outside is something she would like to continue to pursue. She is going to consider joining the [facility] in the summertime as she has to care for her 8-year-old son and in the summer he will be attending camp. She was encouraged to continue to text weekly with any questions or concerns. Return to clinic 6 weeks.
[2024-05-23 13:58] VITALS: BP 134/79; PULSE 84; TEMP 36.1; O2SAT 99; BMI 56.6
--- OUTSIDE RECORDS SUMMARY | 2024-05-23 16:09 | XMS_ITS | Encounter Summary ---
Author Organization [facility] Address [address] [place] [address] Care Team Providers Care Sixth Grade Teacher Name Role Phone Darwin Bhatia MD Primary Care Provider Reason for Visit * Reason Comments Hospital Follow-up Encounter Details Date Type Department Care Team (Late st Contact Info) Description 04/27/2024 10:30 AM EST Office Visit [facility] [address] [phone] Darwin Bhatia MD [address], [place] Hospital discharge follow-up (Primary Dx); Hypothyroidism [...] obesity BMI 60. Patient was admitted at [facility] on 03/10/2024 for elective laparoscopic sleeve gastrectomy. Patient was discharged 2 days later. Patient is following with the surgeon at [facility]. Patient states that she is doing well [...] TAKE 1 TABLET BY MOUTH EVERY DAY [id number] 90 tablet 0 ondansetron ODT (ZOFRAN-ODT) 4 [...] was extracted from the discharge notes from [facility]. The history was reviewed for accuracy and confirmed by myself. I have reconciled the current and discharge meds. Patient was admitted at [facility] on 03/10/2024 for sleeve gastrectomy. She was [...] Description 10/25/2024 4:00 PM EDT [facility] [address] [facility] [place] [address] Darwin Bhatia MD [address] [facility] [place] [address] documented as of this encounter Results * Comprehensive metabolic panel (04/27/2024 11:29 AM EST) [facility] Signature Sodium 142 133 - 145 mmol/L LAB CHEMISTRY METHOD 04/27/2024 2:48 PM [facility] Potassium 4.2 3.5 - 5.5 mmol/L LAB CHEMISTRY METHOD 04/27/2024 2:48 PM [facility] Chloride 106 96 - 110 mmol/L LAB CHEMISTRY METHOD 04/27/2024 2:48 PM [facility] CO2 30 21 - 32 mmol/L LAB CHEMISTRY METHOD 04/27/2024 2:48 PM [facility] Anion Gap 6 3 - 11 LAB CHEMISTRY METHOD 04/27/2024 2:48 PM [facility] Glucose 95 70 - 100 mg/dL LAB CHEMISTRY METHOD 04/27/2024 2:48 PM [facility] BUN 18 5 - 25 mg/dL LAB CHEMISTRY METHOD 04/27/2024 2:48 PM [facility] Creatinine 0.66 0.50 - 1.10 mg/dL LAB CHEMISTRY METHOD 04/27/2024 2:48 PM [facility] eGFR 113 >=60 mL/min/1. 73m2 LAB CHEMISTRY METHOD 04/27/2024 2:48 PM [facility] Comment:Calculation based on the??Chronic Kidney Disease Epidemiology Collaboration (CKD-EPI) equation refit??without adjustment for race. BUN/Creatinine Ratio 27.3 LAB CHEMISTRY METHOD 04/27/2024 2:48 PM [facility] Calcium 9.5 8.5 - 10.5 mg/dL LAB CHEMISTRY METHOD 04/27/2024 2:48 PM [facility] AST (SGOT) 15 10 - 42 unit/L LAB CHEMISTRY METHOD 04/27/2024 2:48 PM [facility] ALT (SGPT) 30 10 - 60 unit/L LAB CHEMISTRY METHOD 04/27/2024 2:48 PM EST [facility] Alkaline Phosphatase 78 42 - 121 unit/L LAB CHEMISTRY METHOD 04/27/2024 2:48 PM [facility] Total Protein 6.9 6.0 - 8.0 g/dL LAB CHEMISTRY METHOD 04/27/2024 2:48 PM [facility] Albumin 3.5 3.2 - 5.0 g/dL LAB CHEMISTRY METHOD 04/27/2024 2:48 PM [facility] Total Bilirubin 0.6 0.0 - 1.4 mg/dL LAB CHEMISTRY METHOD 04/27/2024 2:48 PM [facility] Blood Venous blood specimen / Unknown Venipuncture / Unknown 04/27/2024 11:29 AM EST 04/27/2024 11:29 AM EST Darwin Bhatia MD LAB BLOOD ORDERABLES Final Resu lt [facility] [address] [place] [address], [place] [phone] * (ABNORMAL) Lipid panel with reflex to direct LDL (04/27/2024 11:29 AM EST) Cholesterol 187 0 - 200 mg/dL LAB CHEMISTRY METHOD 04/27/2024 2:48 PM [facility] Triglycerides 122 0 - 150 mg/dL LAB CHEMISTRY METHOD 04/27/2024 2:48 PM [facility] HDL 42 >=40 mg/dL LAB CHEMISTRY METHOD 04/27/2024 2:48 PM [facility] LDL Calculated 121(H) 0 - 100 mg/dL LAB CHEMISTRY METHOD 04/27/2024 2:48 PM [facility] VLDL Cholesterol Yariel 24.4 mg/dL LAB CHEMISTRY METHOD 04/27/2024 2:48 PM [facility] Non HDL Chol. (LDL+VLDL) 145(H) <145 mg/dL LAB CHEMISTRY METHOD 04/27/2024 2:48 PM EST [facility] Chol/HDL Ratio 4.5(H) 0.0 - 4.4 LAB CHEMISTRY METHOD 04/27/2024 2:48 PM [facility] Blood Venous blood specimen / Unknown Venipuncture / Unknown 04/27/2024 11:29 AM EST 04/27/2024 11:29 AM EST Darwin Bhatia MD LAB BLOOD ORDERABLES Final Resu lt Performing Organization Address [facility]/ZIP Co de Phone Number [facility] [address] [place] [address], [place] [phone] * (ABNORMAL) Thyroid stimulating hormone with reflex to free t4 and free t3 (04/27/2024 11:29 AM EST) TSH 5.51(H) 0.40 - 4.00 mcIU/mL LAB CHEMISTRY METHOD 04/27/2024 2:56 PM EST [facility] Blood Venous blood specimen / Unknown Venipuncture / Unknown 04/27/2024 11:29 AM EST 04/27/2024 11:29 AM EST Darwin Bhatia MD LAB BLOOD ORDERABLES Final Resu lt Performing Organization Address [facility]/ZIP Co de Phone Number [facility] [address] [place] [address], [place] [phone] documented in this encounter Visit Diagnoses Diagnosis [...] 5 added in this encounter Care Teams Sixth Grade Teacher Relationship Specialty Start Date End Date Darwin Bhatia MD [address] [place] [phone] PCP - General Internal Medicine 02/07/21 documented as of this encounter
--- OUTSIDE RECORDS SUMMARY | 2024-05-23 16:09 | XMS_ITS | Clinical Summary ---
Author Organization [address] [facility] Address [address] [place] [phone] Phone Care Team Providers Care Criminal Psychologist Name Role Phone Darwin Bhatia MD Primary Care Provider [phone] Allergies Active Allergy Reactions Criticality Noted Date Comments Penicillins 03/31/2014 Unknow reaction pt states she had a reacton when she a a infant she was told by her mother. Medications levothyroxine (SYNTHROID, LEVOTHROID) 150 mcg tablet TAKE 1 TABLET BY MOUTH EVERY DAY R00HDLF 90 tablet 04/05/19 25 Active levonorgestreL (MIRENA) 21 mcg/24hr (up to 8 yrs) 52 mg IUD 1 Each by Intrauterine route once. Inserted 06/2016 Active pantoprazole (PROTONIX) 40 mg EC tablet Take 1 tablet (40 mg total) by mouth 1 (one) time each day before breakfast. 02/11/20 24 Active sucralfate (CARAFATE) 100 mg/mL suspension take 10 mls by mouth twice daily 02/22/20 24 Active ondansetron ODT (ZOFRAN-ODT) 4 mg disintegrating tablet PLEASE SEE ATTACHED FOR DETAILED DIRECTIONS 02/11/20 24 Active cholecalciferol (VITAMIN D-3) 125 mcg (5,000 unit) capsule Take 1 capsule (5,000 Units total) by mouth 1 (one) time each day. 08/18/19 24 025 Discontinu ed(Discont inued by another clinician) cyanocobalamin, vitamin B-12, 1,000 mcg tablet, sublingual PLACE 1 TABLET UNDER TONGUE AND ALLOW TO DISSOLVE FOR AT LEAST 30 SECS BEFORE SWALLOWING 08/21/19 Discontinu ed(Discont inued by another clinician) vitamin A 3,000 mcg (10,000 unit) capsule Take 1 capsule (10,000 Units total) by mouth 1 (one) time each day. 08/18/19 Discontinu ed(Discont inued by another clinician) spironolactone (ALDACTONE) 25 mg tablet TAKE 1 TABLET BY MOUTH 1 TIME EACH DAY. 90 tablet 04/19/19 025 Discontinu ed(Prescri elvis Discontinu ed) irbesartan-hydroC HLOROthiazide (AVALIDE) 150-12.5 mg per tablet TAKE 1 TABLET BY MOUTH 1 TIME EACH DAY. 90 tablet 04/19/19 Discontinu ed(Discont inued by another clinician) irbesartan-hydroC HLOROthiazide (AVALIDE) 150-12.5 mg per tablet Take 1 tablet by mouth 1 (one) time each day. Discontinu ed(Prescri elvis Discontinu ed) Active Problems Problem Noted Date Diagnosed Date Morbid obesity with alveolar hypoventilation Obstructive sleep apnea 06/27/2018 Overview (04/05/2024): [facility] Home Polysomnogram: Date 06/23/2018; Wt 380#; BMI 67; ETHAN 106, AI 96; HI 10; Unclassified apneas 4; Obstructive apneas 692; Central apneas 15; Mixed apneas 2; hypopneas 72; average oxygen saturation 81% (lowest 65% with saturations <88% for 5% or more of study) [facility] Sleep Center Polysomnogram treatment study. Date 09/06/2018. [...] obstructive apneas; with sleep related hypoventilation by 2019 home polysomnogram. 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; Mixed hyperlipidemia; Primary hypertension; Leukocytosis, unspecified type 03/14/2024 Telephone Internal Medicine - [address] [place] [phone] Yazmin Horton RN from Last 3 Months [...] PM EDT Office Visit [facility] [address] [place] [address] Darwin Bhatia MD [address] [place] [address] Health Maintenance Due Date Last Done Comments Breast Cancer Screening 1982 Hepatitis B Vaccines (1 of 3 - 19+ 3-dose series) 2001 Cervical Cancer Screening: Pap Smear 05/24/2021 05/24/2018 Depression Screening 02/15/2022 HIV Screening 02/15/2022 Hepatitis C Screening 02/15/2022 Social Influencers of Health Screening 02/15/2022 COVID-19 Vaccine ( season) 2023 01/11/2022, 01/02/2021, 06/09/2020, Additional history exists Influenza Vaccine (#1) 2023 , 12/12/2020, 03/15/2020, Additional history exists Hypertension/CHF/CAD Annual BMP Blood Test 04/27/2025 04/27/2024, 07/04/2022 DTaP,Tdap,and Td Vaccines (3 - Td or Tdap) 01/15/2026 01/16/2016, 11/27/2014 Cholesterol Screening (Lipid Panel) 04/27/2029 04/27/2024, 07/04/2022 HIB Vaccines Aged Out No [...] Procedure Name Priority Date/Time Associated Diagnosis Comments TRIIODOTHYRONINE FREE Routine 04/27/2024 11:29 AM EST 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 FREE THYROXINE WITH REFLEX TO FREE TRIIODOTHYRONINE Routine 04/27/2024 11:29 AM EST 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 CBC WITH AUTO DIFFERENTIAL Routine 04/27/2024 11:29 [...] Leukocytosis, unspecified type EXTERNAL CLINICAL LAB 03/04/2024 HM PAP SMEAR Routine 05/24/2018 from Last 3 Months or Most Recently Relevant to Health Maintenance Results * (ABNORMAL) Thyroid stimulating hormone with reflex to free t4 and free t3 (04/27/2024 11:29 AM EST) TSH 5.51(H) 0.40 - 4.00 mcIU/mL LAB CHEMISTRY METHOD 04/27/2024 2:56 PM EST [facility] Blood Venous blood specimen / Unknown Venipuncture / Unknown 04/27/2024 11:29 AM EST 04/27/2024 11:29 AM EST Darwin Bhatia MD LAB BLOOD ORDERABLES Final Resu lt Performing Organization Address [facility]/ZIP Co de Phone Number [facility] [address] [place] [address], [place] [phone] * Free thyroxine with reflex to free triiodothyronine (04/27/2024 11:29 AM EST) Free T4 1.07 0.70 - 1.80 ng/dL LAB CHEMISTRY METHOD 04/27/2024 3:22 PM EST [facility] Blood Venous blood specimen / Unknown Venipuncture / Unknown 04/27/2024 11:29 AM EST 04/27/2024 11:29 AM EST Darwin Bhatia MD LAB BLOOD ORDERABLES Final Resu lt [facility] [address] [place] [address], [place] [phone] * (ABNORMAL) Lipid panel with reflex to direct LDL (04/27/2024 11:29 AM EST) Cholesterol 187 0 - 200 mg/dL LAB CHEMISTRY METHOD 04/27/2024 2:48 PM EST [facility] Triglycerides 122 0 - 150 mg/dL LAB CHEMISTRY METHOD 04/27/2024 2:48 PM EST [facility] HDL 42 >=40 mg/dL LAB CHEMISTRY METHOD 04/27/2024 2:48 PM EST [facility] LDL Calculated 121(H) 0 - 100 mg/dL LAB CHEMISTRY METHOD 04/27/2024 2:48 PM [facility] VLDL Cholesterol Yariel 24.4 mg/dL LAB CHEMISTRY METHOD 04/27/2024 2:48 PM [facility] Non HDL Chol. (LDL+VLDL) 145(H) <145 mg/dL LAB CHEMISTRY METHOD 04/27/2024 2:48 PM [facility] Chol/HDL Ratio 4.5(H) 0.0 - 4.4 LAB CHEMISTRY METHOD 04/27/2024 2:48 PM [facility] Blood Venous blood specimen / Unknown Venipuncture / Unknown 04/27/2024 11:29 AM EST 04/27/2024 11:29 AM EST us Darwin Bhatia MD LAB BLOOD ORDERABLES Final Resu lt [facility] [address] [place] [address], * (ABNORMAL) CBC auto differential (04/27/2024 11:29 AM EST) WBC 10.4 4.8 - 10.8 K/[facility] LAB HEMETOLOGY METHOD 04/27/2024 2:41 PM [facility] RBC 4.00 3.80 - 4.80 M/mcL LAB HEMETOLOGY METHOD 04/27/2024 2:41 PM [facility] Hemoglobin 12.0 11.5 - 16.0 g/dL LAB HEMETOLOGY METHOD 04/27/2024 2:41 PM [facility] Hematocrit 38.5 35.0 - 47.0 % LAB HEMETOLOGY METHOD 04/27/2024 2:41 PM [facility] MCV 96.5 79.0 - 98.0 FL LAB HEMETOLOGY METHOD 04/27/2024 2:41 PM [facility] MCH 30.1 27.0 - 32.0 pcg LAB HEMETOLOGY METHOD 04/27/2024 2:41 PM [facility] MCHC 31.2(L) 32.0 - 37.0 g/dL LAB HEMETOLOGY METHOD 04/27/2024 2:41 PM [facility] RDW 14.7 11.0 - 15.0 % LAB HEMETOLOGY METHOD 04/27/2024 2:41 PM [facility] Platelets 231 130 - 400 K/mcL LAB HEMETOLOGY METHOD 04/27/2024 2:41 PM [facility] MPV 12.9(H) 7.0 - 11.0 FL LAB HEMETOLOGY METHOD 04/27/2024 2:41 PM [facility] NRBC 0.0 <1.0 % LAB HEMETOLOGY METHOD 04/27/2024 2:41 PM [facility] NRBC Absolute 0.00 <0.10 K/mcL LAB HEMETOLOGY METHOD 04/27/2024 2:41 PM [facility] Neutrophils Relative 63.4 % LAB HEMETOLOGY METHOD 04/27/2024 2:41 PM [facility] Lymphocytes Relative 26.3 % LAB HEMETOLOGY METHOD 04/27/2024 2:41 PM [facility] Monocytes Relative 7.6 % LAB HEMETOLOGY METHOD 04/27/2024 2:41 PM [facility] Eosinophils Relative 1.5 % LAB HEMETOLOGY METHOD 04/27/2024 2:41 PM [facility] Basophils Relative 0.7 % LAB HEMETOLOGY METHOD 04/27/2024 2:41 PM EST [facility] Immature Granulocytes Relative 0.5 % LAB HEMETOLOGY METHOD 04/27/2024 2:41 PM EST [facility] Neutrophils Absolute 6.57 1.50 - 7.00 K/mcL LAB HEMETOLOGY METHOD 04/27/2024 2:41 PM EST [facility] Lymphocytes Absolute 2.73 1.00 - 5.00 K/mcL LAB HEMETOLOGY METHOD 04/27/2024 2:41 PM EST [facility] Monocytes Absolute 0.79 0.20 - 1.00 K/mcL LAB HEMETOLOGY METHOD 04/27/2024 2:41 PM EST [facility] Eosinophils Absolute 0.16 0.00 - 0.50 K/mcL LAB HEMETOLOGY METHOD 04/27/2024 2:41 PM [facility] Basophils Absolute 0.07 0.00 - 0.20 K/mcL LAB HEMETOLOGY METHOD 04/27/2024 2:41 PM EST [facility] Immature Granulocytes Absolute 0.05(H) 0.00 - 0.03 K/mcL LAB HEMETOLOGY METHOD 04/27/2024 2:41 PM EST [facility] Blood Venous blood specimen / Unknown Venipuncture / Unknown 04/27/2024 11:29 AM EST 04/27/2024 11:29 AM EST us Darwin Bhatia MD LAB BLOOD ORDERABLES Final Resu lt [facility]) [facility] [address] [place] [address], * Triiodothyronine free (04/27/2024 11:29 AM EST) T3, Free 230 230 - 420 pcg/dL LAB CHEMISTRY METHOD 04/27/2024 3:48 PM EST [facility] Blood Venous blood specimen / Unknown Venipuncture / Unknown 04/27/2024 11:29 AM EST 04/27/2024 11:29 AM EST Darwin Bhatia MD LAB BLOOD ORDERABLES Final Resu lt [facility] [address] [place] [address], * Comprehensive metabolic panel (04/27/2024 11:29 AM EST) Sodium 142 133 - 145 mmol/L LAB CHEMISTRY METHOD 04/27/2024 2:48 PM [facility] Potassium 4.2 3.5 - 5.5 mmol/L LAB CHEMISTRY METHOD 04/27/2024 2:48 PM [facility] Chloride 106 96 - 110 mmol/L LAB CHEMISTRY METHOD 04/27/2024 2:48 PM [facility] CO2 30 21 - 32 mmol/L LAB CHEMISTRY METHOD 04/27/2024 2:48 PM [facility] Anion Gap 6 3 - 11 LAB CHEMISTRY METHOD 04/27/2024 2:48 PM [facility] Glucose 95 70 - 100 mg/dL LAB CHEMISTRY METHOD 04/27/2024 2:48 PM [facility] BUN 18 5 - 25 mg/dL LAB CHEMISTRY METHOD 04/27/2024 2:48 PM [facility] Creatinine 0.66 0.50 - 1.10 mg/dL LAB CHEMISTRY METHOD 04/27/2024 2:48 PM [facility] eGFR 113 >=60 mL/min/1. 73m2 LAB CHEMISTRY METHOD 04/27/2024 2:48 PM [facility] Comment:Calculation based on the??Chronic Kidney Disease Epidemiology Collaboration (CKD-EPI) equation refit??without adjustment for race. BUN/Creatinine Ratio 27.3 LAB CHEMISTRY METHOD 04/27/2024 2:48 PM [facility] Calcium 9.5 8.5 - 10.5 mg/dL LAB CHEMISTRY METHOD 04/27/2024 2:48 PM [facility] AST (SGOT) 15 10 - 42 unit/L LAB CHEMISTRY METHOD 04/27/2024 2:48 PM [facility] ALT (SGPT) 30 10 - 60 unit/L LAB CHEMISTRY METHOD 04/27/2024 2:48 PM [facility] Alkaline Phosphatase 78 42 - 121 unit/L LAB CHEMISTRY METHOD 04/27/2024 2:48 PM [facility] Total Protein 6.9 6.0 - 8.0 g/dL LAB CHEMISTRY METHOD 04/27/2024 2:48 PM [facility] Albumin 3.5 3.2 - 5.0 g/dL LAB CHEMISTRY METHOD 04/27/2024 2:48 PM [facility] Total Bilirubin 0.6 0.0 - 1.4 mg/dL LAB CHEMISTRY METHOD 04/27/2024 2:48 PM [facility] Blood Venous blood specimen / Unknown Venipuncture / Unknown 04/27/2024 11:29 AM EST 04/27/2024 11:29 AM EST Darwin Bhatia MD LAB BLOOD ORDERABLES Final Resu lt [facility] [address] [place] [address], * External clinical lab (03/04/2024) us Provider [facility] LAB BLOOD ORDERABLES Fin al Result * Pap Smear (05/24/2018) Pap smear Normal, abstracted Historical Provider HEALTH MAINTENANCE Final Result from Last 3 Months or Most Recently Relevant to Health Maintenance Insurance [facility] Care Teams Criminal Psychologist Relationship Specialty Start Date End Date Darwin Bhatia MD [address] [place] [address] [place] [id number] PCP - General Internal Medicine 02/07/21
== END 2024-05-23 14:33 | disposition home or self-care (01) ==
LOC: HO.HBS 13:49
PROVIDERS: Visit Provider Physician Assistant Surgical
DX: Z98.84 Bariatric surgery status (principal)
CPT/HCPCS: 99024

== ENCOUNTER → 2024-05-23 13:48 | Outpatient (BNVA) | payer BC, SELFPAY | PROVIDERS: Visit Provider Physician Assistant Surgical ==

== ENCOUNTER 2024-07-05 15:00 | Outpatient (AMB) | payer BC, SELFPAY ==
[2024-07-05 13:55] VITALS: BMI 54.6
--- NOTE | 2024-07-05 13:55 | A.OFFVIS_ITS ---
VS Expanded 07/05/24 13:55 Height 5 ft 3 in Weight 308 lb 4 oz BMI 54.6 Body Fat % 70 Fat Free Mass 92.6 Visceral Fat Rating 30 Body Water % 20.5 Muscle Mass/Score 87 Basal Metabolic Rate/Score 1,277 Intake Visit Reasons: (TV) PO LSG 03/10/24 Adjunct Communications Faculty Member Required: No Allergies Penicillins Allergy (Mild, Verified 05/23/24 14:00) rash Medication List - Last Reconciled 07/05/24 by BROCK Correa levonorgestrel (Mirena) intrauterine levothyroxine 150 mcg PO DAILY asyjpcrxmtfl-hki-imew-FA-vit K 45 mg iron- 800 mcg-120 mcg (Bariatric Multivitamins) caps PO HPI Comments Details: This?a?43?yo female who is s/p LSG without hiatal hernia repair on?03/10/2024. Presents for 4 month post op visit. Weight today is 308.4 pounds, with a BMI of 54.6. There has been a 112.4 pound weight loss,(initial weight 420.8 pounds) since starting the program on 08/07/2023 reflecting a 26.7 % total body weight loss and a weight loss of 43.8 pounds since surgery (operative weight 352.2 pounds) reflecting a 12.4 % TBWL since surgery. No complaints of nausea, emesis, abdominal pain or reflux. Reports infrequent but normal bowel movements every 2 days and uses stool softeners regularly. She wwas at her sisters wedding and was able to make ok choices. Would like to have appointment with for follow up. No significant complaints Present meal plan includes: Premier protein rtd shake 630-930, 1130-230, pure protein bar 330-630 730-830 4 forks of scrambled egg or weight flesh fish or dark meat chicken and 4 forks veg 40 oz water ? Exercise routine includes: treadmill, 45-50 min per day, 2 x per week, 300 per session, slight permanent incline, walking outside 5 days per week, 1 hr, 1.5 mi, 304 jones, PFSH Medical History PONV (postoperative nausea and vomiting) Hypothyroidism Sleep apnea treated with continuous positive airway pressure (CPAP) Hypertension Morbid obesity Surgical History S/P laparoscopic sleeve gastrectomy History of esophagogastroduodenoscopy (EGD) (09/17/23) History of delivery (2016) Hx of oral surgery Family History Mother Hypertension Obesity Father No problems noted. Son No problems noted. Social History Household Members: Spouse and Children Household Members Other:: 3 Housing: House Are you a primary career specialist to a significant other at home: Yes (son 8 yrs old) Do you presently have visiting nurse or other home services: No Alcohol intake: former Patient Tobacco Use Status: Never used Tobacco Substance Use Type: Marijuana service: No Telehealth Telehealth Telehealth Platform: Telephone Location of provider rendering services: practice address Location of patient: address on file Patient Identification confirmed using: Name, : Yes Telehealth method: voice only Patient verbally consented to treatment: Yes Patient verbally consented to billing insurance company: Yes Patient informed of any privacy concerns related to visit: Yes Minutes spent on Phone/Video with Pt.: 12 Assessment & Plan Assessment & Plan (1) S/P laparoscopic sleeve gastrectomy: Code(s): Z98.84 - Bariatric surgery status Category: Surgical Plan: Patient was encouraged to increase her exercise. She is unable to join a gym at this time and is utilizing walking outdoors as her form of exercise. She additionally does have a treadmill, encouraged to increase use of the treadmill as well as increase distance while walking outside. She certainly has made significant gains in her exercise tolerance. Encouraged to send weight is weekly, text with any questions or concerns. We will have her return to the office in approximately 2 months for her six-month follow-up appointment. Orders: Referrals Behavioral Health Referral F41.9 - Anxiety disorder, unspecified, Z98.84 - Bariatric surgery status
== END 2024-07-05 15:25 | disposition home or self-care (01) ==
LOC: HO.HBS 15:05
PROVIDERS: Visit Provider Physician Assistant Surgical
DX: E66.01 Morbid (severe) obesity due to excess calories (principal); E66.813 Obesity, class 3; Z68.43 Body mass index [BMI] 50.0-59.9, adult; Z98.84 Bariatric surgery status
CPT/HCPCS: 98967

== ENCOUNTER → 2024-07-05 15:00 | Outpatient (BNVA) | payer BC, SELFPAY | PROVIDERS: Visit Provider Physician Assistant Surgical | DX: Z98.84 Bariatric surgery status (principal) | CPT/HCPCS: 98967 ==

== ENCOUNTER 2024-07-22 14:15 | Outpatient (AMB) | payer BC, SELFPAY ==
--- NOTE | 2024-07-22 14:05 | MHC.WMTHER ---
Intake Intake Visit Reasons: VIDEO PO LSG 03/10/24 *SEE COMMENTS* Allergies Penicillins Allergy (Mild, Verified 05/23/24 14:00) rash PFSH Medical History PONV (postoperative nausea and vomiting) Hypothyroidism Sleep apnea treated with continuous positive airway pressure (CPAP) Hypertension Morbid obesity Surgical History S/P laparoscopic sleeve gastrectomy History of esophagogastroduodenoscopy (EGD) (09/17/23) History of delivery (2015) Hx of oral surgery Family History Mother Hypertension Obesity Father No problems noted. Son No problems noted. Social History Household Members: Spouse and Children Household Members Other:: 3 Housing: House Are you a primary director of managed care to a significant other at home: Yes (son 8 yrs old) Do you presently have visiting nurse or other home services: No Alcohol intake: former Patient Tobacco Use Status: Never used Tobacco Substance Use Type: Marijuana service: No Behavioral Health Assessment Weight Management Therapy Therapy Notes Details The patient is a 43-year-old female presenting for an initial behavioral health consultation with this provider. Today's session focused on assessment and identification of current needs to develop a comprehensive post-operative plan that supports her weight loss goals and helps manage potential stressors. She underwent bariatric surgery on 03/10/2024 and completed a pre-operative behavioral health evaluation with another provider. The patient reports a smooth recovery with no complications to date. Her weight on the day of surgery was approximately 347 lbs; her current weight is 308 lbs. Her long-term goal is to reach a weight below 200 lbs. She also reported losing approximately 75 lbs prior to surgery with the assistance of Zepbound (tirzepatide). The patient expressed ongoing challenges with maintaining structure and consistency in her post-operative routine. Specifically, she struggles with meal planning, scheduling physical activity, and overall time management, which at times leads to neglecting her own needs. While she does not report current symptoms of depression or anxiety at a clinical level, she recognizes the value of continued behavioral support to sustain her progress. Presenting Concerns Referral Source Self-refered after last jeffy with BROCK Torrez. Reason for referral Post-op challenges. Precipitating Event The patient reports that she is not losing weight as expected and is feeling increasingly overwhelmed by persistent food thoughts and noise. She acknowledges difficulty following her post-operative plan consistently and admits she has not been engaging in physical activity as recommended. These challenges have contributed to feelings of frustration and decreased motivation. Living Situation Current Living Situation Own At risk of losing current housing? No Satisfied with current living situation? No Comments PT lives with Her and 8 y/o child. Food/Weight/Diet Expectations of change Goals: - More meal prepping on weekends. - Be under 200 lbs - Exercise daily. PT started the program on 08/07/23 at 420 lbs Most recent weight as of 07/04: 308 lbs. History/Relationship with food Still doing shakes for breakfast and lunch, and protein/veggies for dinner. PT reports she finds easy to follow her plan while working. On weekends she doesn't stick to the plan. Meal schedule 7 am - Shake 11:30 - shake 3 pm: protein bar (not always) - If not, then she would snack on a cheese stick, yogurt. 5 pm: Dinner. Lean protein, veggies. History/Relationship with dieting Nutrisytem. Bariatric surgery - 03/2024. Social History Family history and relationship Patient is and has one child who is 8 years old. Parental/Familial edi coordinator obligations 8 year old son. Developmental history and status no issues Social support and her Son. Some friends but PT said they're skinny and don't get her struggles . Cultural/Ethnic information Education Highest grade completed College Currently enrolled in educational program? No Interested in further educational program? 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 No Mental Health and Addiction Treatment Current/Past substance abuse? No Current/Past addictive behavior concerns? No Psychiatric history PT denied any formal diagnosis or Mental health treatment. Medical and Physical Health Summary Additional Medical History not covered in history None aditional Sexual History concerns None reported Physical exam in the last year? Yes Pain Screening Current pain? No Pain in the last few months? No Medications Is the patient compliant with medications? Yes Does the patient have Ferreira Guardian in place? Not applicable Does the patient use complimentary health approaches? No Assessment & Plan Assessment & Plan (1) Adjustment disorder: Code(s): F43.20 - Adjustment disorder, unspecified (2) S/P laparoscopic sleeve gastrectomy: Code(s): Z98.84 - Bariatric surgery status Plan The patient is adjusting well physically post-surgery but is experiencing difficulty with maintaining structure around self-care, nutrition, and movement. She is motivated but requires behavioral support to maintain long-term lifestyle changes. No immediate mental health concerns warrant referral, but ongoing support is indicated to assist in behavioral adjustments and goal setting. Plan: Continue behavioral health support on a bi-weekly basis Provide psychoeducation on post-surgical behavioral patterns and the importance of structure Set goals for self-management and routine development Homework Assigned: Begin setting a consistent meal schedule Increase physical activity to at least 3 days per week for 30 minutes (e.g., walking, treadmill, outdoor movement, MetCon) Plan meals weekly to reduce last-minute decisions Develop a weekly facility planner to prioritize personal needs and reduce reactive behavior Next Appointment: 08/10/24 at 2:00pm - Telehealth. Telehealth Telehealth Telehealth Platform: [facility] Location of provider rendering services: other Location of patient: other (Work.) Patient Identification confirmed using: Name, : Yes Telehealth method: video Patient verbally consented to treatment: Yes Patient verbally consented to billing insurance company: Yes Patient informed of any privacy concerns related to visit: Yes Minutes spent on Phone/Video with Pt.: 60 Coding Level of Care Code New Pt Tele Psy Diag Eval (59956) Patient Type New Diagnoses Adjustment disorder F43.20 S/P laparoscopic sleeve gastrectomy Z98.84 Time Spent (min) 60
--- OUTSIDE RECORDS SUMMARY | 2024-07-22 14:18 | XMS_ITS | Encounter Summary ---
Author Organization [facility] Address [address] [place] [address] Care Team Providers Care Conservation Agent Name Role Phone Larissa Haines MD Primary Care Provider Darwin De La Torre MD Primary Care Provider [phone] Encounter Details Date Type Department Care Team Description 06/10/2020 Pt. Non Urgent Medical Question Medicine/Pediatrics - [address] [id number] Larissa Haines MD Social History Tobacco Use Types Packs/Day Years Used Date Smoking Tobacco: Never Smokeless Tobacco: Never Alcohol Use Standard Drinks/Week Comments No 0 (1 standard drink = 0.6 oz pur e alcohol) Sex Assigned at Date Recorded Not on file documented as of this encounter Miscellaneous Notes * Telephone Encounter - Camilla Cedillo M.A. - 06/11/2020 10:15 AM EDTFrom: Margaret Gaitan To: Larissa Haines MD Sent: 06/10/2020 9:22 PM EDT Subject: I???m vaccinated! And Referral question Hello!! Yesterday, 06/09, I got my second dose of the Moderna vaccine. My work would now like me to return, when you deem it safe for me. I am concerned about the new variants of Covid-19 and how well the Moderna vaccine will protect against those variants. What do you think? Als o I submitted a request for a referral to Dr. Velasco for weight management after our conversation during my last appointment. I haven???t heard anything so I???m not sure where to go from here? Thanks!!! Margaret Gaitan documented in this encounter Plan of Treatment Not on file documented as of this encounter Visit Diagnoses Not on filedocumented in this encounter Care Teams Conservation Agent Relationship Specialty Start Date End Date Larissa Haines MD PCP - General Internal Medicine 01/16/16 1 Darwin Bhatia MD [address] [place] [id number] PCP - General Internal Medicine 02/07/21 documented as of this encounter
--- OUTSIDE RECORDS SUMMARY | 2024-07-22 14:18 | XMS_ITS | Encounter Summary ---
Author Organization [facility] Address [address] [place] [address] Care Team Providers Care Honing Machine Set Up Operator Tool Name Role Phone Davin Mascorro MD Primary Care Provider Larissa Jj MD Primary Care Provider Geovanna Darwin Pham MD Primary Care Provider [phone] Encounter Details Date Type Department Care Team Description 08/27/2015 [facility]gent [facility] [address] [address] Renetta Caputo [address] [address] Social History Tobacco Use Types Packs/Day Years Used Date Smoking Tobacco: Never Alcohol Use Standard Drinks/Week Comments No 0 (1 standard drink = 0.6 oz pur e alcohol) Sex Assigned at Date Recorded Not on file documented as of this encounter Progress Notes * Alva AshfordPDottieNDottie - 08/27/2015 4:41 PM EDTFrom: Margaret Gaitan To: Renetta Caputo CNM Sent: 08/27/2015 4:39 PM EDT Subject: Thank you! Hello! I just wanted to write you a note to thank you for taking the time to talk with me, listen to my concerns, and be an all around awesome person :) When I first saw you, I think I was around 350 lbs and my periods had basically stopped. I wanted to conceive and knew something had to give. I remember you hugged me and said something along the lines of Don't worry, we'll get you ! I remember leaving the appointment and calling my friend saying I had just had the best appointment and I couldn't stop talking about how kind and caring you were. I saw you more recently after losing around 90 pounds (maybe 80 at the time?) and my periods were back on track and I was feeling 1000 times better. Then, in July, I found out I was !!! I sit here now 10 weeks along and am feeling great. I was so hoping to continue my care with you but I didn't realize Angel doesn't deliver at [facility] so I have had to switch doctors. It's probably hard for you to even recall who I am, I'm sure you see many many many patients so you can't possibly remember all of them. But I wanted to take a few minutes to let you know how appreciative I am of you and that I think you are just phenomenal! Thank you again!!!!!!!!!! -Margaret Gaitan documented in this encounter Plan of Treatment Not on file documented as of this encounter Visit Diagnoses Not on filedocumented in this encounter Care Teams Honing Machine Set Up Operator Tool Relationship Specialty Start Date End Date Davin Mascorro MD PCP - General Internal Medicine 11/18/14 01/15/16 Larissa Haines MD PCP - General Internal Medicine 01/16/16 1 Darwin Bhatia MD [address] [place] [id number] PCP - General Internal Medicine 02/07/21 documented as of this encounter
--- OUTSIDE RECORDS SUMMARY | 2024-07-22 14:18 | XMS_ITS | Encounter Summary ---
Author Organization [facility] Address [address] [place] [address] Care Team Providers Care Photo Mask Cleaner Name Role Phone Davin Mascorro MD Primary Care Provider Larissa Jj MD Primary Care Provider Darwin De La Torre MD Primary Care Provider [phone] Encounter Details Date Type Department Care Team Description 01/14/2016 Pt. Non Urgent Medical Question Adult Medicine - [address] [address] Courtney Whitney NP [address] [place] [id number] Social History Tobacco Use Types Packs/Day Years Used Date Smoking Tobacco: Never Alcohol Use Standard Drinks/Week Comments No 0 (1 standard drink = 0.6 oz pur e alcohol) Sex Assigned at Date Recorded Not on file documented as of this encounter Progress Notes * Shannan Rajput M.A. - 01/15/2016 7:54 AM ESTFrom: Margaret Gaitan To: Courtney Whtiney NP Sent: 01/14/2016 5:05 PM EST Subject: Levothyroxine Refill Hello! I am almost 30 weeks and have been working with BA Morris from [facility]. She has asked me to set up an appt with my PCP to follow my hypothyroid condition. Unfortunately, I am on a waiting list to see my new PCP (Dr. Haines of [facility] in [place]). I have never met with her before. I am low on my Levothyroxine prescription so was hoping you could approve the refill. I just requested it through [facility] [employer] mail order, so I expect they will contact you shortly. I just had my level checked again during my 3 hour glucose intolerance test. TSH 1.63 MIU/ML was my result. I will happily send you the test results directly if you prefer, I would just need the direct email address to send them from [facility]'s online lab results portal. Please let me know if this is not possible so I can make other arrangements before I run out of medication. Thank you!!! -Margaret Gaitan [phone] documented in this encounter Plan of Treatment Not on file documented as of this encounter Visit Diagnoses Not on filedocumented in this encounter Care Teams Photo Mask Cleaner Relationship Specialty Start Date End Date Davin Mascorro MD PCP - General Internal Medicine 11/18/14 01/15/16 Larissa Haines MD PCP - General Internal Medicine 01/16/16 1 Darwin Bhatia MD [address] [place] [address] PCP - General Internal Medicine 02/07/21 documented as of this encounter
--- OUTSIDE RECORDS SUMMARY | 2024-07-22 14:18 | XMS_ITS | Encounter Summary ---
Author Organization [facility] Address [address] [place] [address] Care Team Providers Care Swimming Pool Installer Name Role Phone Larissa Haines MD Primary Care Provider Darwin De La Torre MD Primary Care Provider [phone] Encounter Details Date Type Department Care Team Description 04/12/2020 Pt. Non Urgent Medical Question Medicine/Pediatrics - [address] [address] Larissa Haines MD Social History Tobacco Use Types Packs/Day Years Used Date Smoking Tobacco: Never Smokeless Tobacco: Never Alcohol Use Standard Drinks/Week Comments No 0 (1 standard drink = 0.6 oz pur e alcohol) Sex Assigned at Date Recorded Not on file documented as of this encounter Progress Notes * Arlyn Medina M.A. - 04/12/2020 3:53 PM ESTFrom: Margaret Gaitan To: Larissa Haines MD Sent: 04/12/2020 2:17 PM EST Subject: Letter Request for Remote Work and Vaccine Question Hello!!! Dr. 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 My work is asking for an updated letter saying the same. Could please write me another note to continue my remote work? I also have a question about the vaccine and comorbidities. My BMI is above 40 (unfortunately), does that count as 1 comorbidity or 2? On the list they have Obesity and Severe Obesity. I???m wondering if that means I have 2 or just 1. Thank you so much for all of your efforts! -Margaret documented in this encounter Plan of Treatment Not on file documented as of this encounter Visit Diagnoses Not on filedocumented in this encounter Care Teams Swimming Pool Installer Relationship Specialty Start Date End Date Larissa Haines MD PCP - General Internal Medicine 01/16/16 1 Darwin Bhatia MD [address] [place] [id number] PCP - General Internal Medicine 02/07/21 documented as of this encounter
--- OUTSIDE RECORDS SUMMARY | 2024-07-22 14:18 | XMS_ITS | Encounter Summary ---
Author Organization [facility] Address [address] [place] [address] Care Team Providers Care Machine Made Shoe Unit Worker Name Role Phone Larissa Haines MD Primary Care Provider Geovanna Darwin Pham MD Primary Care Provider [phone] Encounter Details Date Type Department Care Team Description 06/27/2018 Orders Only Medical Records [address] [place] [address] Larissa Haines MD Social History Tobacco Use Types Packs/Day Years Used Date Smoking Tobacco: Never Smokeless Tobacco: Never Alcohol Use Standard Drinks/Week Comments No 0 (1 standard drink = 0.6 oz pur e alcohol) Sex Assigned at Date Recorded Not on file documented as of this encounter Plan of Treatment Not on file documented as of this encounter Procedures Procedure Name Priority Date/Time Associated Diagnosis Comments OUTSIDE SLEEP STUDY Routine 06/23/2018 documented in this encounter Results * OUTSIDE SLEEP STUDY (06/23/2018) Larissa Haines MD PULMONOLOGY documented in this encounter Visit Diagnoses Not on filedocumented in this encounter Care Teams Machine Made Shoe Unit Worker Relationship Specialty Start Date End Date Larissa Haines MD PCP - General Internal Medicine 01/16/16 1 Darwin Bhatia MD [address] [place] [id number] PCP - General Internal Medicine 02/07/21 documented as of this encounter
--- OUTSIDE RECORDS SUMMARY | 2024-07-22 14:18 | XMS_ITS | Clinical Summary ---
Author Organization [facility] Address [address] [address] Care Team Providers Care Board Hammer Operator Name Role Phone No, Pcp CONSTRUCTION PROJECT MGR Primary Care Provider Unavailabl e Allergies Active [...] Adults 18 yrs or above (or HM Modifier)([facility]) 2000 Hepatitis C Virus Infection in Adolescents and Adults: Screening (or Modifier) ([facility]) 2000 SDOH Screening Reminder: Annually for all adults ([facility]) 2000 Tobacco Smoking Cessation: i n Adults excluding Women: Behavioral and Pharmacotherapy Interventions ([facility]) 2000 Cervical Cancer Screenin-65 yrs of age (or Modifier) 09/21/2003 Cervical Cancer Screening: P ap every 3 yrs pts age 21-65 09/21/2003 Cervical Cancer: Pap Screeni ng with Modifier timing ([facility]) 09/21/2003 Cervical Cancer: hrHPV alone or with cotesting Pap for Pts 30-65yrs screening every 5yrs ([facility]) 09/21/2003 COVID-19 Vaccine Screening: Initial Series and Booster Status ([facility]) (2023- season) 2023 06/09/2020, 05/12/2020 Flu Vaccination: Yearly for ages 18mos through 64 years (or Modifier)([facility]) 10/07/2024 DTaP/Tdap/Td Vaccines ([facility]) (2 - Td or Tdap) 11/27/2024 11/27/2014 Zoster/Shingles Vaccine Seri es Screening: Adults aged 18+ yrs (or HM Modifiers)([facility]) (1 of 2) 2032 Lipid Screening: Once for Wo men aged 20 to 45 yrs ([facility]) Completed 08/28/2020 Pneumococcal Vaccination Screening: Pts 0-19 & 19-49 yrs of age ([facility]) Aged Out No longer eligible based on patient's age to complete this topic Medical Devices Not on file Insurance [facility] Care Teams Board Hammer Operator Relationship Specialty Start Date End Date No, Pcp, CONSTRUCTION PROJECT MGR N/A Do not use PCP - General 11/21/14
--- OUTSIDE RECORDS SUMMARY | 2024-07-22 14:18 | XMS_ITS | Encounter Summary ---
Author Organization [facility] Address [address] [place] [address] Care Team Providers Care Conservation Enforcement Officer Name Role Phone Larissa Haines MD Primary Care Provider Darwin De La Torre MD Primary Care Provider [phone] Reason for Visit * Reason Comments E-prescribe Rx Request Encounter Details Date Type Department Care Team Description 11/24/2020 Refill General Surgery - [place] [address] [address] Andreina Copeland MD [address] [address] E-prescribe Rx Request Social History Tobacco Use Types Packs/Day Years Used Date Smoking Tobacco: Never Smokeless Tobacco: Never Alcohol Use Standard Drinks/Week Comments No 0 (1 standard drink = 0.6 oz pur e alcohol) Sex Assigned at Date Recorded Not on file documented as of this encounter Miscellaneous Notes * Telephone Encounter - Lynn Henry - 11/26/2020 8:33 AM EDT Please approve or decline refill documented in this encounter Plan of Treatment Not on file documented as of this encounter Visit Diagnoses Not on filedocumented in this encounter Care Teams Conservation Enforcement Officer Relationship Specialty Start Date End Date Larissa Haines MD PCP - General Internal Medicine 01/16/16 1 Darwin Bhatia MD [address] [place] [address] PCP - General Internal Medicine 02/07/21 documented as of this encounter
--- OUTSIDE RECORDS SUMMARY | 2024-07-22 14:18 | XMS_ITS | Encounter Summary ---
Author Organization [facility] Address [address] [place] [address] Care Team Providers Care Attending Ambulatory Care Name Role Phone Larissa Haines MD Primary Care Provider Darwin De La Torre MD Primary Care Provider [phone] Encounter Details Date Type Department Care Team Description 09/19/2019 Pt. Non Urgent Medical Question Medicine/Pediatrics - [address] [address] Larissa Haines MD Social History Tobacco Use Types Packs/Day Years Used Date Smoking Tobacco: Never Smokeless Tobacco: Never Alcohol Use Standard Drinks/Week Comments No 0 (1 standard drink = 0.6 oz pur e alcohol) Sex Assigned at Date Recorded Not on file documented as of this encounter Progress Notes * Maribell Rai M.A. - 09/19/2019 11:53 AM EDTFrom: Margaret Gaitan To: Larissa Haines MD Sent: 09/19/2019 9:27 AM EDT Subject: Return to Work Covid Concerns Hello! I hope you are fairing well during these crazy times! I???m writing because I am concerned about my risk level for Covid-19 and my potential return to work. 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 Like many districts in [place], whether we wi ll be returning to school in person at the end of October is still up in the air. I???m very concerned as I believe I am high risk due to my obesity and sleep apnea. I???m of course worried about spreading it to my high risk and my son as well. I???d like to be proactive and let my district know that I should be working remotely and if that is not possible, I???d like to take a medical leave of absence. I know we are still a month and a half out, but as I said I???d like to give them as much notice as possible. I???d very much appreciate your opinion on my situation. I???d also like to request that if I am required to provide a letter to my district (which is probable) stating that I should bodywork therapist or take a medical leave, would that be possible? I very much appreciate your time in reading this and all you???ve done to help the community in these trying jenna es! Thank you, Margaret Gaitan documented in this encounter Plan of Treatment Not on file documented as of this encounter Visit Diagnoses Not on filedocumented in this encounter Care Teams Attending Ambulatory Care Relationship Specialty Start Date End Date Larissa Haines MD PCP - General Internal Medicine 01/16/16 1 Darwin Bhatia MD [address] [place] [address] PCP - General Internal Medicine 02/07/21 documented as of this encounter
--- OUTSIDE RECORDS SUMMARY | 2024-07-22 14:19 | XMS_ITS | Encounter Summary ---
Author Organization [facility] Address [address] [place] [address] Care Team Providers Care Animal Shelter Supervisor Name Role Phone Larissa Haines MD Primary Care Provider [place] Darwin Pham MD Primary Care Provider Encounter Details Date Type Department Care Team Description 06/30/2016 Telephoto Installer Report Medical Records [address] [place] [address] Maria Esther Lares NP Social History Tobacco Use Types Packs/Day Years Used Date Smoking Tobacco: Never Alcohol Use Standard Drinks/Week Comments No 0 (1 standard drink = 0.6 oz pur e alcohol) Sex Assigned at Date Recorded Not on file documented as of this encounter Plan of Treatment Not on file documented as of this encounter Visit Diagnoses Not on filedocumented in this encounter Care Teams Animal Shelter Supervisor Relationship Specialty Start Date End Date Larissa Haines MD PCP - General Internal Medicine 01/16/16 1 Darwin Bhatia MD [address] [place] [address] PCP - General Internal Medicine 02/07/21 documented as of this encounter
--- OUTSIDE RECORDS SUMMARY | 2024-07-22 14:19 | XMS_ITS | Encounter Summary ---
Author Organization [facility] Address [address] [place] [address] Care Team Providers Care Manager Inventory Management Name Role Phone Darwin Bhatia MD Primary Care Provider [phone] Encounter Details Date Type Department Care Team Description 07/16/2021 Pt. Non Urgent Medical Question Adult Medicine [address] [address] Darwin Bhatia MD [address] [place] [address] Social History Tobacco Use Types Packs/Day Years Used Date Smoking Tobacco: Never Smokeless Tobacco: Never Alcohol Use Standard Drinks/Week Comments No 0 (1 standard drink = 0.6 oz pur e alcohol) Sex Assigned at Date Recorded Not on file documented as of this encounter Miscellaneous Notes * Telephone Encounter - Fe Jimenez M.A. - 07/16/2021 11:12 AM EDTFrom: Margaret Gaitan To: Colten Bhatia Sent: 07/16/2021 9:55 AM EDT Subject: Refill Denied? Hello! I recently submitted a refill request for my Levothyroxine prescription. It was denied, however. I???m assuming I must need a visit first? Not sure so was hoping it that???s the case I could schedulean appointment. Thanks! Margaret Gaitan documented in this encounter Plan of Treatment Not on file documented as of this encounter Visit Diagnoses Not on filedocumented in this encounter Care Teams Manager Inventory Management Relationship Specialty Start Date End Date Darwin Bhatia MD [address] [place] [address] PCP - General Internal Medicine 02/07/21 documented as of this encounter
--- OUTSIDE RECORDS SUMMARY | 2024-07-22 14:19 | XMS_ITS | Encounter Summary ---
Author Organization [facility] Address [address] [place] [address] Care Team Providers Care Cambering Machine Operator Name Role Phone Larissa Haines MD Primary Care Provider [place] Darwin Pham MD Primary Care Provider [phone] Encounter Details Date Type Department Care Team Description 05/19/2016 Agronomist Report Medical Records [address] [place] [address] Maria Esther Lares NP Social History Tobacco [...] on filedocumented in this encounter Care Teams Cambering Machine Operator Relationship Specialty Start Date End Date Larissa Haines MD PCP - General Internal Medicine 01/16/16 1 Darwin Bhatia MD [address] [place] [address] PCP - General Internal Medicine 02/07/21 documented as of this encounter
--- OUTSIDE RECORDS SUMMARY | 2024-07-22 14:19 | XMS_ITS | Encounter Summary ---
Author Organization [employer] [facility] Address [address] [place] [address] Care Team Providers Care Fish Protector Name Role Phone Darwin Bhatia MD Primary Care Provider [phone] Encounter Details Date Type Department Care Team Description 07/23/2021 Walk In Clinic Visit Medical Records [address] [place] [address] Social History Tobacco Use Types Packs/Day Years [...] on filedocumented in this encounter Care Teams Fish Protector Relationship Specialty Start Date End Date Darwin Bhatia MD [address] [place] [address] PCP - General Internal Medicine 02/07/21 documented as of this encounter
--- OUTSIDE RECORDS SUMMARY | 2024-07-22 14:19 | XMS_ITS | Encounter Summary ---
Author Organization [facility] Address [address] [place] [address] Care Team Providers Care Client Relationship Manager Name Role Phone Larissa Haines MD Primary Care Provider [place] Darwin Pham MD Primary Care Provider Encounter Details Date Type Department Care Team Description 05/13/2016 Twenty One Dealer Report Medical Records [address] [place] [address] Maria Esther Lares NP Social History Tobacco [...] on filedocumented in this encounter Care Teams Client Relationship Manager Relationship Specialty Start Date End Date Larissa Haines MD PCP - General Internal Medicine 01/16/16 1 Darwin Bhatia MD [address] [place] [address] PCP - General Internal Medicine 02/07/21 documented as of this encounter
--- OUTSIDE RECORDS SUMMARY | 2024-07-22 14:19 | XMS_ITS | Encounter Summary ---
Author Organization [facility] Address [address] [place] [address] Care Team Providers Care Help Desk Intern Name Role Phone Larissa Haines MD Primary Care Provider [place] Darwin Pham MD Primary Care Provider [phone] Encounter Details Date Type Department Care Team Description 04/22/2016 Recordings Librarian Report Medical Records [address] [place] [address] Maria Esther Lares NP Social History Tobacco [...] on filedocumented in this encounter Care Teams Help Desk Intern Relationship Specialty Start Date End Date Larissa Haines MD PCP - General Internal Medicine 01/16/16 1 Darwin Bhatia MD [address] [place] [address] PCP - General Internal Medicine 02/07/21 documented as of this encounter
--- OUTSIDE RECORDS SUMMARY | 2024-07-22 14:19 | XMS_ITS | Encounter Summary ---
Author Organization [facility] Address [address] [place] [address] Care Team Providers Care Gold And Silver Assayer Name Role Phone Darwin Bhatia MD Primary Care Provider [phone] Encounter Details Date Type Department Care Team Description 08/19/2021 Jawbone Puller Report Medical Records [address] [place] [address] Etelvina Moe MD Social History Tobacco Use Types Packs/Day Years Used Date Smoking Tobacco: Never Smokeless Tobacco: Never Alcohol Use Standard Drinks/Week Comments No 0 (1 standard drink = 0.6 oz pur e alcohol) Sex Assigned at Date Recorded Not on file COVID-19 Exposure Response Date Recorded In the last 10 days, have yo u been in contact with someone who was confirmed or suspected to have Coronavirus/COVID-19? No / Unsure 08/09/2021 3:43 PM EDT documented as of this encounter Plan of Treatment Not on file documented as of this encounter Visit Diagnoses Not on filedocumented in this encounter Care Teams Gold And Silver Assayer Relationship Specialty Start Date End Date Darwin Bhatia MD [address] [place] [address] PCP - General Internal Medicine 02/07/21 documented as of this encounter
--- OUTSIDE RECORDS SUMMARY | 2024-07-22 14:19 | XMS_ITS | Clinical Summary ---
Author Organization [address] [facility] Address [address] [place] [phone] Phone Care Team Providers Care Lining Printer Name Role Phone Darwin Bhatia MD Primary Care Provider [phone] Allergies Active Allergy Reactions Criticality Noted Date Comments Penicillins 03/31/2014 Unknow reaction pt states she had a reacton when she a a infant she was told by her mother. Medications levonorgestreL (MIRENA) 21 mcg/24hr (up to 8 yrs) 52 mg IUD 1 Each by Intrauterine route once. Inserted 06/2016 Active irbesartan-hydr oCHLOROthiazide (AVALIDE) 150-12.5 mg per tablet Take 1 tablet by mouth 1 (one) time each day. 90 tablet 5 Active levothyroxine (SYNTHROID, LEVOTHROID) 175 mcg tablet Take 1 tablet (175 mcg total) by mouth 1 (one) time each day. 90 each 1 5 12/15/19 25 Active Active Problems Problem Noted Date Diagnosed Date Morbid obesity with alveolar hypoventilation (CMS/HCC V24, CMS/HCC V28) 07/19/2018 Obstructive sleep apnea 06/27/2018 Overview (04/05/2024): SMS Home Polysomnogram: Date 06/23/2018; Wt 380#; BMI 67; ETHAN 106, AI 96; HI 10; Unclassified apneas 4; Obstructive apneas 692; Central apneas 15; Mixed apneas 2; hypopneas 72; average oxygen saturation 81% (lowest 65% with saturations <88% for 5% or more of study) [facility] Polysomnogram treatment study. Date 09/06/2018. 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; Mixed hyperlipidemia; Primary hypertension; Leukocytosis, unspecified type from Last 3 Months Immunizations Name Administration [...] Date Smoking Tobacco: Never Smokeless Tobacco: Never Tobacco Cessation:Counseling Given: Not Answered Alcohol Use Standard Drinks/Week Comments No 0 (1 standard drink = 0.6 oz pur e alcohol) Comments No Sex and Gender Information Value Date Recorded Sex Assigned at Not on file Legal Sex Female 5:27 AM EST Gender Identity Not on file Sexual Orientation Not on file Obstetrics History Last Filed Vital Signs Vital Sign Reading Time Taken Comments Blood Pressure 123/79 06/14/2024 3:57 PM EDT Pulse 78 06/14/2024 3:57 PM EDT Temperature - - Respiratory Rate - - Oxygen Saturation - - Inhaled Oxygen Concentration - - Weight 147 kg (323 lb) 06/14/2024 3:57 PM EDT Height 160 cm (5' 3 ) 06/14/2024 3:57 PM EDT Body Mass Index 57.22 06/14/2024 3:57 PM EDT Plan of Treatment Upcoming Encounters Date Type Department Care Team (Late st Contact Info) Description 10/25/2024 4:00 PM EDT Office Visit Internal Medicine - [facility] [address] [place] [address] Darwin Bhatia MD [address] [place] [address] Health Maintenance Due Date Last Done Comments Breast Cancer Screening 1982 Hepatitis B Vaccines (1 of 3 - 19+ 3-dose series) 2001 Cervical Cancer Screening: Pap Smear 05/24/2021 05/24/2018 Depression Screening 02/15/2022 HIV Screening 02/15/2022 Hepatitis C Screening 02/15/2022 Social Influencers of Health Screening 02/15/2022 COVID-19 Vaccine ( season) 2023 01/11/2022, 01/02/2021, 06/09/2020, Additional history exists Influenza Vaccine (Season Ended) 2024 12/21/2021, 12/12/2020, 03/15/2020, Additional history exists Hypertension/CHF/CAD Annual BMP Blood Test 06/14/2025 06/14/2024, 04/27/2024, 07/04/2022 DTaP,Tdap,and Td Vaccines (3 - [...] age to complete this topic Meningococcal B Vaccine Aged Out No l onger eligible based on patient's age to complete [...] Date/Time Associated Diagnosis Comments TRIIODOTHYRONINE FREE Routine 06/14/2024 4:32 PM EDT 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 FREE THYROXINE WITH REFLEX TO FREE TRIIODOTHYRONINE Routine 06/14/2024 4:32 PM EDT 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 TSH 7.46(H) 0.40 - 4.00 mcIU/mL LAB CHEMISTRY METHOD 06/16/2024 2:22 PM EDT [facility] ([facility]) [facility] Blood Venous blood specimen / Unknown Venipuncture / Unknown 06/14/2024 4:32 PM EDT 06/14/2024 4:32 PM EDT us Vasyl GUTIÉRREZ LAB BLOOD ORDERABLES Fi nal Result Performing Organization Address [facility]/ZIP Co de Phone Number [facility] [address] [place] [address], [place] [phone] * Free thyroxine with reflex to free triiodothyronine (06/14/2024 4:32 PM EDT) Only the most recent of2 resultswithin the time period is included. Free T4 0.98 0.70 - 1.80 ng/dL LAB CHEMISTRY METHOD 06/16/2024 4:01 PM EDT [facility] Blood Venous blood specimen / Unknown Venipuncture / Unknown 06/14/2024 4:32 PM EDT 06/14/2024 4:32 PM EDT Vasyl GUTIÉRREZ LAB BLOOD ORDERABLES Fi nal Result Performing Organization Address [facility] Co de Phone Number [facility] [address] [place] [address], [place] [phone] * Triiodothyronine free (06/14/2024 4:32 PM EDT) Only the most recent of2 resultswithin the time period is included. T3, Free 249 230 - 420 pcg/dL LAB CHEMISTRY METHOD 06/16/2024 5:06 PM EDT [facility] Blood Venous blood specimen / Unknown Venipuncture / Unknown 06/14/2024 4:32 PM EDT 06/14/2024 4:32 PM EDT Vasyl GUTIÉRREZ LAB BLOOD ORDERABLES Fi nal Result Performing Organization Address [facility]/ZIP Co de Phone Number [facility] [address] [place] [address], [place] [phone] * Basic metabolic panel (06/14/2024 4:32 PM EDT) Pathologist [facility] Sodium 140 133 - 145 mmol/L LAB CHEMISTRY METHOD 06/14/2024 7:10 PM [facility] Potassium 4.1 3.5 - 5.5 mmol/L LAB CHEMISTRY METHOD 06/14/2024 7:10 PM [facility] Chloride 105 96 - 110 mmol/L LAB CHEMISTRY METHOD 06/14/2024 7:10 PM [facility] CO2 32 21 - 32 mmol/L LAB CHEMISTRY METHOD 06/14/2024 7:10 PM [facility] Anion Gap 3 3 - 11 LAB CHEMISTRY METHOD 06/14/2024 7:10 PM [facility] Glucose 85 70 - 100 mg/dL LAB CHEMISTRY METHOD 06/14/2024 7:10 PM [facility] BUN 18 5 - 25 mg/dL LAB CHEMISTRY METHOD 06/14/2024 7:10 PM [facility] Creatinine 0.62 0.50 - 1.10 mg/dL LAB CHEMISTRY METHOD 06/14/2024 7:10 PM [facility] eGFR 115 >=60 mL/min/1. 73m2 LAB CHEMISTRY METHOD 06/14/2024 7:10 PM [facility] Comment:Calculation based on the??Chronic Kidney Disease Epidemiology Collaboration (CKD-EPI) equation refit??without adjustment for race. BUN/Creatinine Ratio 29.0 LAB CHEMISTRY METHOD 06/14/2024 7:10 PM [facility] Calcium 9.9 8.5 - 10.5 mg/dL LAB CHEMISTRY METHOD 06/14/2024 7:10 PM [facility] Blood Venous blood specimen / Unknown Venipuncture / Unknown 06/14/2024 4:32 PM EDT 06/14/2024 4:32 PM EDT us Vasyl GUTIÉRREZ LAB BLOOD ORDERABLES Fi nal Result [facility] [address] [place] [address], [place] [phone] * (ABNORMAL) Lipid panel with reflex to direct LDL (04/27/2024 11:29 AM EST) Cholesterol 187 0 - 200 mg/dL LAB CHEMISTRY METHOD 04/27/2024 2:48 PM EST [facility] Triglycerides 122 0 - 150 mg/dL LAB CHEMISTRY METHOD 04/27/2024 2:48 PM EST [facility] HDL 42 >=40 mg/dL LAB CHEMISTRY METHOD 04/27/2024 2:48 PM EST [facility] LDL Calculated 121(H) 0 - 100 mg/dL LAB CHEMISTRY METHOD 04/27/2024 2:48 PM EST [facility] VLDL Cholesterol Yariel 24.4 mg/dL LAB CHEMISTRY METHOD 04/27/2024 2:48 PM EST [facility] Non HDL Chol. (LDL+VLDL) 145(H) <145 mg/dL LAB CHEMISTRY METHOD 04/27/2024 2:48 PM EST [facility] Chol/HDL Ratio 4.5(H) 0.0 - 4.4 LAB CHEMISTRY METHOD 04/27/2024 2:48 PM EST [facility] Blood Venous blood specimen / Unknown Venipuncture / Unknown 04/27/2024 11:29 AM EST 04/27/2024 11:29 AM EST us Darwin Bhatia MD LAB BLOOD ORDERABLES Final Resu lt [facility] [address] [place] [address], [place] [phone] * (ABNORMAL) CBC auto differential (04/27/2024 11:29 [...] PM [facility] Immature Granulocytes Relative 0.5 % LAB HEMETOLOGY METHOD 04/27/2024 2:41 PM [facility] Neutrophils Absolute 6.57 1.50 - 7.00 K/mcL LAB HEMETOLOGY METHOD 04/27/2024 2:41 PM [facility] Lymphocytes Absolute 2.73 1.00 - 5.00 K/mcL LAB HEMETOLOGY METHOD 04/27/2024 2:41 PM [facility] Monocytes Absolute 0.79 0.20 - 1.00 K/mcL LAB HEMETOLOGY METHOD 04/27/2024 2:41 PM [facility] Eosinophils Absolute 0.16 0.00 - 0.50 K/mcL LAB HEMETOLOGY METHOD 04/27/2024 2:41 PM [facility] Basophils Absolute 0.07 0.00 - 0.20 K/mcL LAB HEMETOLOGY METHOD 04/27/2024 2:41 PM [facility] Immature Granulocytes Absolute 0.05(H) 0.00 - 0.03 K/mcL LAB HEMETOLOGY METHOD 04/27/2024 2:41 PM [facility] Blood Venous blood specimen / Unknown Venipuncture / Unknown 04/27/2024 11:29 AM EST 04/27/2024 11:29 AM EST us Darwin Bhatia MD LAB BLOOD ORDERABLES Final Resu lt [facility] [address] [place] [address], * Comprehensive metabolic panel (04/27/2024 11:29 AM EST) Sodium 142 133 - 145 mmol/L LAB CHEMISTRY METHOD 04/27/2024 2:48 PM EST [facility] Potassium 4.2 3.5 - [...] MD LAB BLOOD ORDERABLES Final Resu lt [facility] [address] [place] [address], * Pap Smear (05/24/2018) Pap smear Normal, abstracted Historical Provider HEALTH MAINTENANCE Final Result from Last 3 Months or Most Recently Relevant to Health Maintenance Insurance [facility] Care Teams Lining Printer Relationship Specialty Start Date End Date Darwin Bhatia MD [address] [place] [address] PCP - General Internal Medicine 02/07/21
--- OUTSIDE RECORDS SUMMARY | 2024-07-22 14:19 | XMS_ITS | Encounter Summary ---
Author Organization [employer] [facility] Address [address] [place] [address] Care Team Providers Care Comptometer Operator Name Role Phone Darwin Bhatia MD Primary Care Provider [phone] Encounter Details Date Type Department Care Team Description 05/25/2023 Pt. Non Urgent Medical Question Hypertension - [address] [address] Perri Acuña, Pharm.D Social History Tobacco Use Types Packs/Day Years Used Date Smoking Tobacco: Never Smokeless Tobacco: Never Alcohol Use Standard Drinks/Week Comments No 0 (1 standard drink = 0.6 oz pur e alcohol) 1 drink a month Sex Assigned at Date Recorded Not on file documented as of this encounter Plan of Treatment Not on file documented as of this encounter Visit Diagnoses Not on filedocumented in this encounter Care Teams Comptometer Operator Relationship Specialty Start Date End Date Darwin Bhatia MD [address] [place] [address] PCP - General Internal Medicine 02/07/21 documented as of this encounter
--- OUTSIDE RECORDS SUMMARY | 2024-07-22 14:19 | XMS_ITS | Encounter Summary ---
[facility] Address [address] [place] [address] Care Team Providers Care Finished Yarn Examiner Name Role Phone Darwin Bhatia MD Primary Care Provider [phone] Encounter Details Date Type Department Care Team Description 08/07/2022 Pt. Non Urgent Medical Question Hypertension - [place] [address] [place] [address] Perri Acuña, Pharm.D Social History Tobacco Use [...] suspected to have Coronavirus/COVID-19? No / Unsure 07/16/2022 2:48 PM EDT documented as of this encounter Miscellaneous Notes * Telephone Encounter - Horace Jasmine.D - 08/11/2022 10:29 AM EDTFrom: Margaret Youngnya To: Horace Jasmine.D Sent: 08/07/2022 7:05 PM EDT Subject: Appointment Question Pablo! Hope your week has gone well! When I had my physical with my PCP, she is the one that first prescribed to me the blood pressure medicine. She also asked that I schedule a follow up appointment to getmy blood pressure checked again after about four weeks. That appointment is coming up on August 12. However, I am meeting with you on August 15. I???m sure you will be checking my blood pressure at that time, so do you think I could cancel the August 12 appointment? I was supposed to see Vasyl Moffett PA-C. Thank you! Margaret Reed My numbers are staying low! So far so good :) documented in this encounter Plan of Treatment Not on file documented as of this encounter Visit Diagnoses Not on filedocumented in this encounter Care Teams Finished Yarn Examiner Relationship Specialty Start Date End Date Darwin Bhatia MD [address] [place] [address] PCP - General Internal Medicine 02/07/21 documented as of this encounter
--- OUTSIDE RECORDS SUMMARY | 2024-07-22 14:19 | XMS_ITS | Encounter Summary ---
Author Organization [facility] Address [address] [place] [address] Care Team Providers Care Rn X Ray Name Role Phone Larissa Haines MD Primary Care Provider Darwin De La Torre MD Primary Care Provider [phone] Encounter Details Date Type Department Care Team Description 05/26/2016 Pt. Non Urgent Medical Question Breast Feeding [facility] [address] [place] [address] Larissa Bahena MD Social History Tobacco Use Types Packs/Day Years Used Date Smoking Tobacco: Never Alcohol Use Standard Drinks/Week Comments No 0 (1 standard drink = 0.6 oz pur e alcohol) Sex Assigned at Date Recorded Not on file documented as of this encounter Progress Notes * Zenaida Escamilla R.N. - 05/26/2016 9:01 AM EDT Nourisht message from to . Pt can be reached at [email or web address] or by phone at [phone]. Pt currently 8w2d post , delivered [facility] (has outside obgyn provider). From: Margaret Gaitan To: Larissa Bahena MD Sent: 05/26/2016 12:01 AM EDT Subject: Extended leave Hello Dr. Bahena, Thanks so much for meeting with me earlier this month. I have been trying to pump the 6x per day asyou recommend and between that and your other suggestions it seems to have helped quite a bit! As it turns out, I may have to return to work after all due to financial reasons. I don't see how Jacquie continue to pump and feed him as frequently as he needs if I am working. With a letter from a doctor I can extend my medical leave and that would allow me to continue the feeding and pumping routine that is working. I'm not producing enough milk to freeze so that doesn't seem to be a viable option for me. Ideally, I would like to have my leave extended through the end of August. Please let me know if you would be able to write me such a letter or need any additional information. I've only used this system once to send a message so I'm not sure if you can send one back to me or not, so just in case you can also reach me at [email or web address] or by phone at [phone]. Thank you so much for your time! Margaret Gaitan documented in this encounter Plan of Treatment Not on file documented as of this encounter Visit Diagnoses Not on filedocumented in this encounter Care Teams Rn X Ray Relationship Specialty Start Date End Date Larissa Haines MD PCP - General Internal Medicine 01/16/16 1 Darwin Bhatia MD [address] [place] [id number] PCP - General Internal Medicine 02/07/21 documented as of this encounter
--- OUTSIDE RECORDS SUMMARY | 2024-07-22 14:19 | XMS_ITS | Encounter Summary ---
Author Organization [facility] Address [address] [place] [address] Care Team Providers Care Marketing Operations Coordinator Name Role Phone Darwin Bhatia MD Primary Care Provider [phone] Reason for Visit * Reason Onset Date Comments TEST RESULTS 07/08/2022 Encounter Details Date Type Department Care Team Description 07/08/2022 Telephone Adult Medicine [address] [address] Darwin Bhatia MD [address] [place] [id number] TEST RESULTS Social History Tobacco Use Types Packs/Day Years [...] suspected to have Coronavirus/COVID-19? No / Unsure 07/04/2022 8:09 AM EDT documented as of this encounter Miscellaneous Notes * Telephone Encounter - Cammie Rubio M.A. - 07/08/2022 4:14 PM EDT LMOM for call back. [facility] Med/Peds x [phone] No blind transfers. * Telephone Encounter - Perla Salmeron - 07/08/2022 1:55 PM EDT Pt returning call received regarding 07-04-22 lab results. Pls call her at [phone]. Thx. documented in this encounter Plan of Treatment Not on file documented as of this encounter Visit Diagnoses Not on filedocumented in this encounter Care Teams Marketing Operations Coordinator Relationship Specialty Start Date End Date Darwin Bhatia MD [address] [place] [id number] PCP - General Internal Medicine 02/07/21 documented as of this encounter
--- OUTSIDE RECORDS SUMMARY | 2024-07-22 14:19 | XMS_ITS | Encounter Summary ---
Author Organization [facility] Address [address] [place] [address] Care Team Providers Care Echocardiograph Tech Name Role Phone Darwin Bhatia MD Primary Care Provider [phone] Encounter Details Date Type Department Care Team Description 10/09/2022 Pt. Non Urgent Medical Question Hypertension - [place] [address] [place] [address] Perri Acuña, Pharm.D Social History Tobacco Use Types Packs/Day Years Used Date Smoking Tobacco: Never Smokeless Tobacco: Never Alcohol Use Standard Drinks/Week Comments No 0 (1 standard drink = 0.6 oz pur e alcohol) 1 drink a month Sex Assigned at Date Recorded Not on file documented as of this encounter Miscellaneous Notes * Telephone Encounter - Perri Acuña Pharm.D - 10/10/2022 8:22 AM EDTFrom: Margaret Gaitan To: Pharm. MitaliD Sent: 10/09/2022 8:39 AM EDT Subject: Recent #s and Refill? Hello! Hoping your September was great! I am writing to give you a quick update and request a refill of the Spironolactone if you see fit. First, I went on vacation at the end of August, and I forgot to bring my machine with me! Yikes! I did take my medicine in the entire time, but I have no readings for t hat span of time. I was pretty good taking readings and medicine throughout September. I did forget to take the meds on 2 separate days, but took them all the other days, and got readings for almost all of the days. My numbers are still elevated, however, I need to admit that I have been eating terribly this summer. I turned 42 on so I think I was in a mood of sorts! However, I have just restarted nutrisystem, which I was very succes sful on in the past so I am hoping that will have an effect. That brings me to my medicine. I just got a refill of the lisinopril HCTZ. For the spironolactone, it shows that I have zero refills remaining. I still have 13 doses left. And I didn???t know if you wanted to refill me at the same dosage or make any adjustments based on my numbers and of course I???m complicating it by completely changing my diet now so I???m not sure how best t o proceed. I do have an appointment with you later this month. I think it???s on the but my current medicine will not last me until then. Anyway, please let me know what you think is best and I will see you later this month. I will attach a picture of my numbers now. Thanks so much, Margaret documented in this encounter Plan of Treatment Not on file documented as of this encounter Visit Diagnoses Not on filedocumented in this encounter Care Teams Echocardiograph Tech Relationship Specialty Start Date End Date Darwin Bhatia MD [address] [place] [id number] PCP - General Internal Medicine 02/07/21 documented as of this encounter
== END 2024-07-22 15:10 | disposition home or self-care (01) ==
LOC: HO.HBST 14:15
PROVIDERS: Visit Provider Counselor Mental Health
DX: F43.20 Adjustment disorder, unspecified (principal); Z98.84 Bariatric surgery status
CPT/HCPCS: 90791

== ENCOUNTER → 2024-08-10 14:18 | Outpatient (AMB) | payer BC, SELFPAY ==
--- NOTE | 2024-08-10 14:10 | MHC.WMTHER ---
Intake Intake Visit Reasons: VIDEO PO LSG 03/10/24 Allergies Penicillins Allergy (Mild, Verified 05/23/24 14:00) rash PFSH Medical History PONV (postoperative nausea and vomiting) Hypothyroidism Sleep apnea treated with continuous positive airway pressure (CPAP) Hypertension Morbid obesity Surgical History S/P laparoscopic sleeve gastrectomy History of esophagogastroduodenoscopy (EGD) (09/17/23) History of delivery (2016) Hx of oral surgery Family History Mother Hypertension Obesity Father No problems noted. Son No problems noted. Social History Household Members: Spouse and Children Household Members Other:: 3 Housing: House Are you a primary healthcare network pricing consultant to a significant other at home: Yes (son 8 yrs old) Do you presently have visiting nurse or other home services: No Alcohol intake: former Patient Tobacco Use Status: Never used Tobacco Substance Use Type: Marijuana service: No Behavioral Health Assessment Weight Management Therapy Therapy Notes Details Subjective:? The patient reports actively meal prepping and committing to behaviors that support her weight loss journey. She notes improved sleep and reduced stress as the school year concludes. Additionally, she has been approved for Zepbound. Objective:? The patient attended a follow-up via telehealth. We discussed her food-related thoughts and cravings, including their intensity, frequency, and duration. She often skips meals during busy days, leading to increased hunger and cravings after dinner. We explored the possibility of inadequate nourishment and examined her sleep habits and other potential hunger triggers, such as fatigue or boredom. Strategies were discussed to help her identify triggers and adjust her routine regarding sleep, eating, stress, and exercise. We also focused on habit building and discipline as forms of self-care, emphasizing that Zepbound is more effective with a healthy, active lifestyle. Assessment/Response: Mental status: Within normal limits Risk reported/identified: None Assessment & Plan Assessment & Plan (1) Adjustment disorder: Code(s): F43.20 - Adjustment disorder, unspecified (2) S/P laparoscopic sleeve gastrectomy: Code(s): Z98.84 - Bariatric surgery status Plan -The patient reported significant improvement and wishes to continue using the techniques provided alongside Zepbound. She declined scheduling a follow-up visit at this time but understands she can reach out if she needs to arrange additional appointments. -She was encouraged to maintain regular communication with her PA. -Information about upcoming peer support groups was provided to her. Next Appointment:?None scheduled. The patient will contact us if she needs to schedule one. Telehealth Telehealth Telehealth Platform: [employer] Location of provider rendering services: practice address Location of patient: other (work. [place]) Patient Identification confirmed using: Name, : Yes Telehealth method: video Patient verbally consented to treatment: Yes Patient verbally consented to billing insurance company: Yes Patient informed of any privacy concerns related to visit: Yes Minutes spent on Phone/Video with Pt.: 55 Coding Level of Care Code Established Pt Tele Psytx >53 mins (97996) Patient Type Established Diagnoses Adjustment disorder F43.20 S/P laparoscopic sleeve gastrectomy Z98.84 Time Spent (min) 55
--- OUTSIDE RECORDS SUMMARY | 2024-08-10 14:21 | XMS_ITS | Clinical Summary ---
Author Organization [facility] [employer] Address [address] [address] [place] [address] Care Team Providers Care Printer Maintainer Name Role Phone No, Pcp SHOE PULLER Primary Care Provider Unavailabl e Allergies Active [...] Adults 18 yrs or above (or HM Modifier)([facility]) 2000 Hepatitis C Virus Infection in Adolescents and Adults: Screening (or Modifier) ([facility]) 2000 SDOH Screening Reminder: Annually for all adults ([facility]) 2000 Tobacco Smoking Cessation: i n Adults excluding Women: Behavioral and Pharmacotherapy Interventions ([facility]) 2000 Cervical Cancer Screenin-65 yrs of age (or Modifier) 09/21/2003 Cervical Cancer Screening: P ap every 3 yrs pts age 21-65 09/21/2003 Cervical Cancer: Pap Screeni ng with Modifier timing ([facility]) 09/21/2003 Cervical Cancer: hrHPV alone or with cotesting Pap for Pts 30-65yrs screening every 5yrs ([facility]) 09/21/2003 COVID-19 Vaccine Screening: Initial Series and Booster Status ([facility]) (2023- season) 2023 06/09/2020, 05/12/2020 Flu Vaccination: Yearly for ages 18mos through 64 years (or Modifier)([facility]) 10/07/2024 DTaP/Tdap/Td Vaccines ([facility]) (2 - Td or Tdap) 11/27/2024 11/27/2014 Zoster/Shingles Vaccine Seri es Screening: Adults aged 18+ yrs (or HM Modifiers)([facility]) (1 of 2) 2032 Pneumococcal Vaccination Screening: Pts 0-19 & 19-49 yrs of age ([facility]) Aged Out No longer eligible based on patient's age to complete this topic Medical Devices Not on file Insurance [employer] Care Teams Printer Maintainer Relationship Specialty Start Date End Date No, Pcp, SHOE PULLER N/A Do not use PCP - General 11/21/14
== END ==
LOC: HO.HBST 14:18
PROVIDERS: Visit Provider Counselor Mental Health
DX: F43.20 Adjustment disorder, unspecified (principal); Z98.84 Bariatric surgery status
CPT/HCPCS: 90837

== ENCOUNTER → 2024-08-10 14:18 | Outpatient (BNVA) | payer BC, SELFPAY | PROVIDERS: Visit Provider Counselor Mental Health ==

== ENCOUNTER 2024-09-19 10:35 | Outpatient (REF) | payer BC, SELFPAY ==
[2024-09-19 11:30] LABS: MANUAL DIFF FLAG NO
[2024-09-19 11:54] LABS: Hematocrit 37.2 % (37.0-47.0); Hemoglobin 12.3 g/dl (12.0-16.0); Imm Gran Abs Auto 0.04 X10*3/uL (0.00-0.03); Imm Gran Pct Auto 0.4 % (0.0-0.4); Lymphocytes Absolute Auto 3.2 X10*3/uL (1.2-4.9); Mean Corpuscular HGB Conc 33.1 g/dl (31.0-35.0); Mean Corpuscular Hemoglobin 30.1 pg (27.0-33.0); Mean Corpuscular Volume 91.0 fL (80.0-98.0); NRBC Abs Auto 0.000 X10*3/uL (0.0-0.012); NRBC Pct Auto 0.0 /100WBC (0.0-0.2); Platelet Count 247 X10*3/uL (160-400); Red Blood Count 4.09 X10*6/uL (4.20-5.50); White Blood Count 9.5 X10*3/uL (4.8-10.8)
[2024-09-19 12:41] LABS: Hemoglobin A1C 168.2886 umol/L; Total Hemoglobin (HGBA1C) 5153.7341 umol/L
[2024-09-19 12:44] LABS: Alanine Aminotransferase 15 U/L (0-31); Albumin Level 4.5 g/dL (3.5-5.0); Alkaline Phosphatase 88 U/L (39-117); Anion Gap 12 (12-20); Aspartate Amino Transferase 18 U/L (5-31); Blood Urea Nitrogen 19 mg/dL (9-16); Calcium 9.6 mg/dL (8.4-10.2); Carbon Dioxide 28 mmol/L (22-29); Chloride 107 mmol/L (96-108); Cholesterol 188 mg/dL (<200); Estimated Glomerular Filt Rate > 60; HDL Cholesterol 44 mg/dL (>40); Iron 68 mcg/dL (30-160); Percent Iron Saturation 33 % (15-50); Potassium 4.0 mmol/L (3.3-5.1); Sodium 143 mmol/L (135-145); Total Iron Binding Capacity 206 mcg/dL (228-428); Total Protein 7.8 g/dL (6.5-8.0); Triglycerides 92 mg/dL (<150); Unsaturated Iron Binding 138 ug/dL
[2024-09-19 12:47] LABS: Ferritin 234 ng/mL (10-250)
[2024-09-19 13:04] LABS: Folate 17.8 ng/mL (> or = 4.0); Vitamin B12 1034 pg/mL (200-900)
== END 2024-09-19 10:36 | disposition home or self-care (01) ==
LOC: HO.LAB 10:35
PROVIDERS: PCP Internal Medicine; Visit Provider Physician Assistant Surgical
DX: Z98.84 Bariatric surgery status (principal); E55.9 Vitamin D deficiency, unspecified; E50.9 Vitamin A deficiency, unspecified; E53.8 Deficiency of other specified B group vitamins; K76.0 Fatty (change of) liver, not elsewhere classified; E03.9 Hypothyroidism, unspecified; I10 Essential (primary) hypertension; Z13.1 Encounter for screening for diabetes mellitus
CPT/HCPCS: 36415; 80053; 80061; 82306; 82607; 82728; 82746; 83036; 83525; 83540; 84425; 84443; 84590; 84630; 85025; 86140

== ENCOUNTER 2024-09-19 10:35 | Outpatient (AMB) | payer BC, SELFPAY ==
--- NOTE | 2024-09-19 10:36 | MHC.OFFVISWM ---
VS Expanded 09/19/24 10:43 BP 122/69 Blood Pressure Location Rt brachial Blood Pressure Position Sitting Pulse 80 Pulse Source Pulse Oximeter Temp 97.5 F Temperature Source Temporal Artery Scan Pulse Oximetry 98 Oxygen Delivery Method Room Air Height 5 ft 3 in Weight 307 lb BMI 54.4 Body Fat % 46.9 Body Fat Mass 144.0 Fat Free Mass 163.0 Visceral Fat Rating 18.0 Body Water % 38.0 Body Water Mass 116.6 Muscle Mass/Score 154.8 Basal Metabolic Rate/Score 2,335 Intake Visit Reasons: OV PO LSG 03/10/24 [employer] Required: No Allergies Penicillins Allergy (Mild, Verified 09/19/24 10:39) rash Medication List - Last Reconciled 09/19/24 by BROCK Correa irbesartan-hydrochlorothiazide 150-12.5 mg 1 tab PO DAILY levonorgestrel (Mirena) intrauterine levothyroxine 150 mcg PO DAILY nbbunpmbkyer-yaq-pdug-FA-vit K 45 mg iron- 800 mcg-120 mcg (Bariatric Multivitamins) caps PO tirzepatide (weight loss) (Zepbound) 5 mg (0.5 mL) subcut QWEEK tirzepatide (weight loss) (Zepbound) 2.5 mg (0.5 mL) subcut QWEEK HPI Comments Details: This?a?43?yo female who is s/p LSG without hiatal hernia repair on?03/10/2024. Presents for 6 month post op visit. Weight today is 307 pounds, with a BMI of 54.4. There has been a 113.8 pound weight loss,(initial weight 420.8 pounds) since starting the program on 08/07/2023 reflecting a 27 % total body weight loss and a weight loss of 45.2 pounds since surgery (operative weight 352.2 pounds) reflecting a 12.8 % TBWL since surgery. No complaints of nausea, emesis, abdominal pain or reflux. Reports infrequent but normal bowel movements every 2 days and uses stool softeners regularly. 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 As a result she is entitled to use their exercise facilities. She has requested a excess card which she is waiting on. She understands that she needs to improve her exercise capacity to improve her outcome. Patient had been eating 14 forks fulls of protein and 14 of vegetables. It is unclear where she got this information from. At our last visit my understanding was that it was for. In any event we will correct this. Additionally, she has not been exercising very much perhaps 1-2 days per week. This will also be corrected. Present meal plan includes: Premier protein rtd shake 630-930, 1130-230, pure protein bar 330-630 730-830 14 forks of scrambled egg or weight flesh fish or dark meat chicken and 14 forks veg 40 oz water ? Exercise routine includes: treadmill, 45-50 min per day, 2 x per week, 300 per session, slight permanent incline, Any post op complications: none EL: continues DM: never HTN: improved Hyperlipidemia: never GERD:?0-5 scale ??0 = no symptoms ??1 = symptoms noticeable but not bothersome 2 =symptoms bothersome but not daily ? 3 = symptoms bothersome and daily 4 = symptoms affect daily activities 5 = symptoms are incapacitating, unable to do daily activities ? How bad is the heartburn: 0 ? Heartburn while lying down: 0 ? Heartburn when standing up: 0 ? Heartburn after meals: 0 ? Does heartburn change your diet: 0 ? Does heartburn wake you up from sleep: 0 ? Do you have difficulty swallowin ? Do you have pain with swallowin ? If you take medicine for your reflux, does this affect your daily life: 0 Satisfaction with present condition - satisfied or not satisfied: dissatisfied [facility] Medical History PONV (postoperative nausea and vomiting) Hypothyroidism Sleep apnea treated with continuous positive airway pressure (CPAP) Hypertension Morbid obesity Surgical History S/P laparoscopic sleeve gastrectomy History of esophagogastroduodenoscopy (EGD) (09/17/23) History of delivery (2015) Hx of oral surgery Family History Mother Hypertension Obesity Father No problems noted. Son No problems noted. Social History Household Members: Spouse and Children Household Members Other:: 3 Housing: House Are you a primary home care provider to a significant other at home: Yes (son 8 yrs old) Do you presently have visiting nurse or other home services: No Alcohol intake: former Patient Tobacco Use Status: Never used Tobacco Substance Use Type: Marijuana service: No Physical Exam Vital Signs: Last Vital Signs Temp 97.5 F 09/19/24 10:43 Pulse 80 09/19/24 10:43 BP 122/69 09/19/24 10:43 Pulse Ox 98 09/19/24 10:43 Oxygen Delivery Method Room Air 09/19/24 10:43 BMI result Body Mass Index 54.4 Const General: cooperative and no acute distress Orientation/consciousness: patient oriented x3 Resp Effort & Inspection: normal respiratory effort Auscultation: clear to auscultation bilaterally Cardio Rate: regular rate Rhythm: regular rhythm GI Inspection: Yes normal to inspection and Yes incision (well healed) Palpation (GI): Soft to palpation and no masses Neuro General: patient oriented x3 Assessment & Plan Assessment & Plan (1) S/P laparoscopic sleeve gastrectomy: Code(s): Z98.84 - Bariatric surgery status Category: Surgical Plan: Patient had been eating entirely too much. It is unclear why she thought it was 14 forks fulls of protein and 14 of vegetables. We have corrected this below: Premier protein rtd shake 630-930, 1130-230, pure protein bar 330-630 730-830 8 forks of scrambled egg or weight flesh fish or dark meat chicken and 8 forks veg Additionally, she states that because she is not currently in school her schedule is haphazard. I discussed the importance of consistency, purpose fullness, discipline. Encouraged her to return to her previous schedule and follow it daily. She will also investigate going to the [facility] exercise facility, utilizing the cardio equipment with a goal of burning 300 calories per day, 7 days a week. Check six-month postop labs. Encouraged to get calcium plus D. Return to clinic 1 month Orders: Orders Hemoglobin A1c Today E03.9 - Hypothyroidism, unspecified, E50.9 - Vitamin A deficiency, unspecified, E53.8 - Deficiency of other specified B group vitamins, E55.9 - Vitamin D deficiency, unspecified, I10 - Essential (primary) hypertension, K76.0 - Fatty (change of) liver, not elsewhere classified, Z98.84 - Bariatric surgery status Zinc Today E03.9 - Hypothyroidism, unspecified, E50.9 - Vitamin A deficiency, unspecified, E53.8 - Deficiency of other specified B group vitamins, E55.9 - Vitamin D deficiency, unspecified, I10 - Essential (primary) hypertension, K76.0 - Fatty (change of) liver, not elsewhere classified, Z98.84 - Bariatric surgery status Vitamin B1 Today E03.9 - Hypothyroidism, unspecified, E50.9 - Vitamin A deficiency, unspecified, E53.8 - Deficiency of other specified B group vitamins, E55.9 - Vitamin D deficiency, unspecified, I10 - Essential (primary) hypertension, K76.0 - Fatty (change of) liver, not elsewhere classified, Z98.84 - Bariatric surgery status Ferritin Today E03.9 - Hypothyroidism, unspecified, E50.9 - Vitamin A deficiency, unspecified, E53.8 - Deficiency of other specified B group vitamins, E55.9 - Vitamin D deficiency, unspecified, I10 - Essential (primary) hypertension, K76.0 - Fatty (change of) liver, not elsewhere classified, Z98.84 - Bariatric surgery status Insulin Today E03.9 - Hypothyroidism, unspecified, E50.9 - Vitamin A deficiency, unspecified, E53.8 - Deficiency of other specified B group vitamins, E55.9 - Vitamin D deficiency, unspecified, I10 - Essential (primary) hypertension, K76.0 - Fatty (change of) liver, not elsewhere classified, Z98.84 - Bariatric surgery status Complete Blood Count Auto Diff Today E03.9 - Hypothyroidism, unspecified, E50.9 - Vitamin A deficiency, unspecified, E53.8 - Deficiency of other specified B group vitamins, E55.9 - Vitamin D deficiency, unspecified, I10 - Essential (primary) hypertension, K76.0 - Fatty (change of) liver, not elsewhere classified, Z98.84 - Bariatric surgery status Lipid Panel Today E03.9 - Hypothyroidism, unspecified, E50.9 - Vitamin A deficiency, unspecified, E53.8 - Deficiency of other specified B group vitamins, E55.9 - Vitamin D deficiency, unspecified, I10 - Essential (primary) hypertension, K76.0 - Fatty (change of) liver, not elsewhere classified, Z98.84 - Bariatric surgery status IRON PROFILE Today E03.9 - Hypothyroidism, unspecified, E50.9 - Vitamin A deficiency, unspecified, E53.8 - Deficiency of other specified B group vitamins, E55.9 - Vitamin D deficiency, unspecified, I10 - Essential (primary) hypertension, K76.0 - Fatty (change of) liver, not elsewhere classified, Z98.84 - Bariatric surgery status Comprehensive Met. Panel Today E03.9 - Hypothyroidism, unspecified, E50.9 - Vitamin A deficiency, unspecified, E53.8 - Deficiency of other specified B group vitamins, E55.9 - Vitamin D deficiency, unspecified, I10 - Essential (primary) hypertension, K76.0 - Fatty (change of) liver, not elsewhere classified, Z98.84 - Bariatric surgery status Vitamin B12 and Folate Today E03.9 - Hypothyroidism, unspecified, E50.9 - Vitamin A deficiency, unspecified, E53.8 - Deficiency of other specified B group vitamins, E55.9 - Vitamin D deficiency, unspecified, I10 - Essential (primary) hypertension, K76.0 - Fatty (change of) liver, not elsewhere classified, Z98.84 - Bariatric surgery status C Reactive Protein Today E03.9 - Hypothyroidism, unspecified, E50.9 - Vitamin A deficiency, unspecified, E53.8 - Deficiency of other specified B group vitamins, E55.9 - Vitamin D deficiency, unspecified, I10 - Essential (primary) hypertension, K76.0 - Fatty (change of) liver, not elsewhere classified, Z98.84 - Bariatric surgery status Vitamin A Today E03.9 - Hypothyroidism, unspecified, E50.9 - Vitamin A deficiency, unspecified, E53.8 - Deficiency of other specified B group vitamins, E55.9 - Vitamin D deficiency, unspecified, I10 - Essential (primary) hypertension, K76.0 - Fatty (change of) liver, not elsewhere classified, Z98.84 - Bariatric surgery status TSH reflex Free T4 Today E03.9 - Hypothyroidism, unspecified, E50.9 - Vitamin A deficiency, unspecified, E53.8 - Deficiency of other specified B group vitamins, E55.9 - Vitamin D deficiency, unspecified, I10 - Essential (primary) hypertension, K76.0 - Fatty (change of) liver, not elsewhere classified, Z98.84 - Bariatric surgery status Vitamin D 25-OH Total Today E03.9 - Hypothyroidism, unspecified, E50.9 - Vitamin A deficiency, unspecified, E53.8 - Deficiency of other specified B group vitamins, E55.9 - Vitamin D deficiency, unspecified, I10 - Essential (primary) hypertension, K76.0 - Fatty (change of) liver, not elsewhere classified, Z98.84 - Bariatric surgery status
[2024-09-19 10:43] VITALS: BP 122/69; PULSE 80; TEMP 36.4; O2SAT 98; BMI 54.4
--- OUTSIDE RECORDS SUMMARY | 2024-09-19 11:26 | XMS_ITS | Clinical Summary ---
Author Organization [facility] General [employer] Address [address] [place] [address] Care Team Providers Care Cancer Registry Coordinator Name Role Phone No, Pcp BANBURY MILL OPERATOR Primary Care Provider Unavailabl e Allergies Active [...] 99 10/19/2020 5:11 PM EDT Temperature 36.1 C (97 F) 10/19/2020 5:11 PM EDT Respiratory Rate 14 [...] Adults 18 yrs or above (or HM Modifier)([facility]) 2000 Hepatitis C Virus Infection in Adolescents and Adults: Screening (or Modifier) ([facility]) 2000 SDOH Screening Reminder: Annually for all adults ([facility]) 2000 Tobacco Smoking Cessation: i n Adults excluding Women: Behavioral and Pharmacotherapy Interventions ([facility]) 2000 Cervical Cancer Screenin-65 yrs of age (or Modifier) 09/21/2003 Cervical Cancer Screening: P ap every 3 yrs pts age 21-65 09/21/2003 Cervical Cancer: Pap Screeni ng with Modifier timing ([facility]) 09/21/2003 Cervical Cancer: hrHPV alone or with cotesting Pap for Pts 30-65yrs screening every 5yrs ([facility]) 09/21/2003 COVID-19 Vaccine Screening: Initial Series and Booster Status ([facility]) (2023- season) 2023 06/09/2020, 05/12/2020 Flu Vaccination: Yearly for ages 18mos through 64 years (or Modifier)([facility]) 10/07/2024 DTaP/Tdap/Td Vaccines ([facility]) (2 - Td or Tdap) 11/27/2024 11/27/2014 Zoster/Shingles Vaccine Seri es Screening: Adults aged 18+ yrs (or HM Modifiers)([facility]) (1 of 2) 2032 Pneumococcal Vaccination Screening: Pts 0-19 & 19-49 yrs of age ([facility]) Aged Out No longer eligible based on patient's age to complete this topic Medical Devices Not on file Insurance [employer] Care Teams Cancer Registry Coordinator Relationship Specialty Start Date End Date No, Pcp, BANBURY MILL OPERATOR N/A Do not use PCP - General 11/21/14
--- OUTSIDE RECORDS SUMMARY | 2024-09-19 11:26 | XMS_ITS | Encounter Summary ---
[facility] Address [address] [place] [address] Care Team Providers Care Computer Forensic Specialist Name Role Phone Larissa Haines MD Primary Care Provider Darwin De La Torre MD Primary Care Provider [phone] Reason for Visit * Reason Comments E-prescribe Rx Request Encounter Details Date Type Department Care Team Description 11/24/2020 Refill General Surgery - [place] [address] [address] Andreina Copeland MD [address] [phone] E-prescribe Rx Request Social History [...] on filedocumented in this encounter Care Teams Computer Forensic Specialist Relationship Specialty Start Date End Date Larissa Haines MD PCP - General Internal Medicine 01/16/16 1 Darwin Bhatia MD [address] [place] [address] PCP - General Internal Medicine 02/07/21 documented as of this encounter
--- OUTSIDE RECORDS SUMMARY | 2024-09-19 11:26 | XMS_ITS | Clinical Summary ---
Author Organization [facility] [address] [facility] Address [address] [place] [phone] Phone Care Team Providers Care Public Relations Studies Director Name Role Phone Darwin Bhatia MD Primary Care Provider [phone] Allergies Active Allergy Reactions Criticality Noted Date Comments Penicillins 03/31/2014 Unknow reaction pt states she had a reacton when she a a infant she was told by her mother. Medications levonorgestreL (MIRENA) 21 mcg/24hr (up to 8 yrs) 52 mg IUD 1 Each by Intrauterine route once. Inserted 06/2016 Active levothyroxine (SYNTHROID, LEVOTHROID) 175 mcg tablet Take 1 tablet (175 mcg total) by mouth 1 (one) time each day. 90 each 1 5 12/15/19 25 Active irbesartan-hydr oCHLOROthiazide (AVALIDE) 150-12.5 mg per tablet TAKE 1 TABLET BY MOUTH 1 TIME EACH DAY. 90 tablet 5 Active Active Problems Problem Noted Date Diagnosed Date Morbid obesity with alveolar hypoventilation (CMS/HCC V24, CMS/HCC V28) 07/19/2018 Obstructive sleep apnea 06/27/2018 Overview (04/05/2024): [facility] Home Polysomnogram: Date 06/23/2018; Wt 380#; BMI 67; ETHAN 106, AI 96; HI 10; Unclassified apneas 4; Obstructive apneas 692; Central apneas 15; Mixed apneas 2; hypopneas 72; average oxygen saturation 81% (lowest 65% with saturations <88% for 5% or more of study) [facility] Sleep Center Polysomnogram treatment study. [...] polysomnogram. Hypertension 04/16/2016 Preeclampsia 04/16/2016 Hypothyroid 04/24/2014 Immunizations Name Administration Dates Next Due Influenza [...] PM EDT Office Visit Internal Medicine - [facility] [address] [place] [address] Darwin Bhatia MD [address] [place] [address] Health Maintenance Due Date Last Done Comments Breast Cancer Screening 1982 Hepatitis B Vaccines (1 of 3 - 19+ 3-dose series) 2001 Cervical Cancer Screening: Pap Smear 05/24/2021 05/24/2018 Depression Screening 02/15/2022 HIV Screening 02/15/2022 Hepatitis C Screening 02/15/2022 Social Influencers of Health Screening 02/15/2022 COVID-19 Vaccine ( season) 2023 01/11/2022, 01/02/2021, 06/09/2020, Additional history exists Influenza Vaccine (#1) 2024 , 12/12/2020, 03/15/2020, Additional history exists Hypertension/CHF/CAD [...] 5 Years) and At-Risk Patients (6 to 49 Years) Aged Out No longer eligible based on patient's age to complete this topic RSV Immunization Patients Under 20 months Aged Out No longer eligible based on patient's age to complete this topic Varicella Vaccines Aged Out No longer eligible based on patient's age to complete this topic Procedures Procedure Name Priority Date/Time Associated Diagnosis Comments BASIC METABOLIC PANEL Routine 06/14/2024 4:32 PM EDT Primary hypertension LIPID PANEL WITH REFLEX TO DIRECT LDL Routine 04/27/2024 11:29 AM EST Mixed hyperlipidemia HM PAP SMEAR Routine 05/24/2018 from Last 3 Months or Most Recently Relevant to Health Maintenance Results * Basic metabolic panel (06/14/2024 4:32 PM EDT) Sodium 140 133 - 145 mmol/L LAB CHEMISTRY METHOD 06/14/2024 7:10 PM EDT [facility] Potassium 4.1 3.5 - 5.5 mmol/L LAB CHEMISTRY METHOD 06/14/2024 7:10 PM EDT [facility] Chloride 105 96 - 110 mmol/L LAB CHEMISTRY METHOD 06/14/2024 7:10 PM EDT [facility] CO2 32 21 - 32 mmol/L LAB CHEMISTRY METHOD 06/14/2024 7:10 PM EDT [facility] Anion Gap 3 3 - 11 LAB CHEMISTRY METHOD 06/14/2024 7:10 PM [facility] Glucose 85 70 - 100 mg/dL LAB CHEMISTRY METHOD 06/14/2024 7:10 PM [facility] BUN 18 5 - 25 mg/dL LAB CHEMISTRY METHOD 06/14/2024 7:10 PM [facility] Creatinine 0.62 0.50 - 1.10 mg/dL LAB CHEMISTRY METHOD [facility] eGFR 115 >=60 mL/min/1. 73m2 LAB CHEMISTRY METHOD 06/14/2024 7:10 PM [facility] Comment:Calculation based on the Chronic Kidney Disease Epidemiology Collaboration (CKD-EPI) equation refit without adjustment for race. BUN/Creatinine Ratio 29.0 LAB CHEMISTRY METHOD 06/14/2024 7:10 PM [facility] Calcium 9.9 8.5 - 10.5 mg/dL LAB CHEMISTRY METHOD 06/14/2024 7:10 PM [facility] Blood Venous blood specimen / Unknown Venipuncture / Unknown 06/14/2024 4:32 PM EDT 06/14/2024 4:32 PM EDT Vasyl GUTIÉRREZ LAB BLOOD ORDERABLES Fi nal Result [facility] [address] [place] [address], * (ABNORMAL) Lipid panel with reflex to direct LDL (04/27/2024 11:29 AM EST) Cholesterol 187 0 - 200 mg/dL LAB CHEMISTRY METHOD 04/27/2024 2:48 PM EST [facility] Triglycerides 122 0 - 150 mg/dL LAB CHEMISTRY METHOD 04/27/2024 2:48 PM EST [facility] HDL 42 >=40 mg/dL LAB CHEMISTRY METHOD 04/27/2024 2:48 PM EST [facility] LDL Calculated 121(H) 0 - 100 mg/dL LAB CHEMISTRY METHOD 04/27/2024 2:48 PM [facility] VLDL Cholesterol Yariel 24.4 mg/dL LAB CHEMISTRY METHOD 04/27/2024 2:48 PM EST [facility] Non HDL Chol. (LDL+VLDL) 145(H) <145 mg/dL LAB CHEMISTRY METHOD 04/27/2024 2:48 PM [facility] Chol/HDL Ratio 4.5(H) 0.0 - 4.4 LAB CHEMISTRY METHOD 04/27/2024 2:48 PM [facility] Blood Venous blood specimen / Unknown Venipuncture / Unknown 04/27/2024 11:29 AM EST 04/27/2024 11:29 AM EST Darwin Bhatia MD LAB BLOOD ORDERABLES Final Resu lt [facility] [address] [place] [address], * Pap Smear (05/24/2018) Pap smear Normal, abstracted Historical Provider HEALTH MAINTENANCE Final Result from Last 3 Months or Most Recently Relevant to Health Maintenance Insurance [facility] Care Teams Public Relations Studies Director Relationship Specialty Start Date End Date Darwin Bhatia MD [address] [place] [address] PCP - General Internal Medicine 02/07/21
== END 2024-09-19 11:08 | disposition home or self-care (01) ==
LOC: HO.HBS 10:35
PROVIDERS: Visit Provider Physician Assistant Surgical
DX: E66.01 Morbid (severe) obesity due to excess calories (principal); Z68.43 Body mass index [BMI] 50.0-59.9, adult; Z90.3 Acquired absence of stomach [part of]; Z98.84 Bariatric surgery status
CPT/HCPCS: 99214

== ENCOUNTER 2024-10-28 10:24 | Outpatient (AMB) | payer BC, SELFPAY ==
--- NOTE | 2024-10-28 08:01 | A.OFFVIS_ITS ---
VS Expanded 10/28/24 08:02 Height 5 ft 3 in Weight 296 lb 6 oz BMI 52.5 Body Fat % 70 Fat Free Mass 89 Visceral Fat Rating 29 Body Water % 20.5 Muscle Mass/Score 83.6 Basal Metabolic Rate/Score 1,241 Intake Visit Reasons: TV PO LSG 03/10/24 [facility] Counselor Required: No Allergies Penicillins Allergy (Mild, Verified 09/19/24 10:39) rash Medication List - Last Reconciled 10/28/24 by BROCK Correa irbesartan-hydrochlorothiazide 150-12.5 mg 1 tab PO DAILY levonorgestrel (Mirena) intrauterine levothyroxine 150 mcg PO DAILY gcsnyknwtrqs-qkw-ixtt-FA-vit K 45 mg iron- 800 mcg-120 mcg (Bariatric Multivitamins) caps PO tirzepatide (weight loss) (Zepbound) 10 mg (0.5 mL) subcut QWEEK HPI Comments Details: This?a?44?yo female who is s/p LSG without hiatal hernia repair on?03/10/2024. Presents for 6 month post op visit. Weight today is 296.6 pounds, with a BMI of 52.5. There has been a 124.2 pound weight loss,(initial weight 420.8 pounds) since starting the program on 08/07/2023 reflecting a 29.5 % total body weight loss and a weight loss of 55.6 pounds since surgery (operative weight 352.2 pounds) reflecting a 15.7 % TBWL since surgery. No complaints of nausea, emesis, abdominal pain or reflux. Reports infrequent but normal bowel movements every 2 days and uses stool softeners regularly. 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 As a result she is entitled to use their exercise facilities. She has requested a excess card which she is waiting on. Present meal plan includes: Premier protein rtd shake [id number], 1130-230, pure protein bar [phone] 8 forks of scrambled egg or weight flesh fish or dark meat chicken and 8 forks veg sometimes ice cream at night 40 oz water ? Exercise routine includes: walking outside 1.56 mi 45 min, 4 x per week treadmill, only if raining outside 45-50 min per day, 2 x per week, 300 per session, slight permanent incline, Any post op complications: none EL: continues but not yet followed up w pulm DM: never HTN: improved Hyperlipidemia: never GERD:?0-5 scale ??0 = no symptoms ??1 = symptoms noticeable but not bothersome 2 =symptoms bothersome but not daily ? 3 = symptoms bothersome and daily 4 = symptoms affect daily activities 5 = symptoms are incapacitating, unable to do daily activities ? How bad is the heartburn: 0 ? Heartburn while lying down: 0 ? Heartburn when standing up: 0 ? Heartburn after meals: 0 ? Does heartburn change your diet: 0 ? Does heartburn wake you up from sleep: 0 ? Do you have difficulty swallowin ? Do you have pain with swallowin ? If you take medicine for your reflux, does this affect your daily life: 0 Satisfaction with present condition - satisfied or not satisfied: dissatisfied [facility] Medical History PONV (postoperative nausea and vomiting) Hypothyroidism Sleep apnea treated with continuous positive airway pressure (CPAP) Hypertension Morbid obesity Surgical History S/P laparoscopic sleeve gastrectomy History of esophagogastroduodenoscopy (EGD) (09/17/23) History of delivery (2015) Hx of oral surgery Family History Mother Hypertension Obesity Father No problems noted. Son No problems noted. Social History Household Members: Spouse and Children Household Members Other:: 3 Housing: House Are you a primary hearing care practitioner to a significant other at home: Yes (son 8 yrs old) Do you presently have visiting nurse or other home services: No Alcohol intake: former Patient Tobacco Use Status: Never used Tobacco Substance Use Type: Marijuana service: No Physical Exam Vital Signs: BMI result Body Mass Index 52.5 Telehealth Telehealth Telehealth Platform: Telephone Location of provider rendering services: practice address Location of patient: address on file Patient Identification confirmed using: Name, : Yes Telehealth method: voice only Patient verbally consented to treatment: Yes Patient verbally consented to billing insurance company: Yes Patient informed of any privacy concerns related to visit: Yes Minutes spent on Phone/Video with Pt.: 15 Assessment & Plan Assessment & Plan (1) S/P laparoscopic sleeve gastrectomy: Code(s): Z98.84 - Bariatric surgery status Category: Surgical Plan: Patient is now following the meal plan appropriately. Discussed the importance of exercise as she is not exercising nearly enough. She is walking 1.56 miles several times a week, although not using her treadmill as frequently. I recommended that she use her treadmill everyday and walk additionally. She states that she will do this. We also discussed strategies to avoid eating ice cream at night. She certainly could do some form of exercise, increase fluids, she may have half an apple. She wants to continue her Zepbound, 10 mg weekly, although she will have to pay for this out of pocket, she is going to do just that. We will have her return to the office in 4-6 weeks Medications: Discontinued tirzepatide (weight loss) (Zepbound) Discontinued Reason: Patient Completed Course 7.5 mg (0.5 mL) subcut QWEEK 2 mL 0RF
[2024-10-28 08:02] VITALS: BMI 52.5
--- OUTSIDE RECORDS SUMMARY | 2024-10-28 10:26 | XMS_ITS | Clinical Summary ---
Author Organization [facility] [address] [facility] Building Address [address] [place] [phone] Phone Care Team Providers Care Repair Specialist Name Role Phone Darwin Bhatia MD Primary Care Provider [phone] Allergies Active Allergy Reactions Criticality Noted Date [...] 07/19/2018 Obstructive sleep apnea 06/27/2018 Overview (04/05/2024): [facility] Home Polysomnogram: Date 06/23/2018; Wt 380#; BMI 67; ETHAN 106, AI 96; HI 10; Unclassified apneas 4; Obstructive apneas 692; Central apneas 15; Mixed apneas 2; hypopneas 72; average oxygen saturation 81% (lowest 65% with saturations <88% for 5% or more of study) [facility] Sleep Center Polysomnogram treatment study. Date [...] Encounters Date Type Department Care Team Description 10/25/2024 4:00 PM EDT [facility] [address] [place] [phone] Darwin Bhatia MD Encounter for annual physical exam (Primary Dx); Class 3 severe obesity due to excess calories without serious comorbidity with body mass index (BMI) of 50.0 to 59.9 in adult (CMS/HCC V24, CMS/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; Primary hypertension; Mixed hyperlipidemia; Lack of concentration from Last 3 Months Immunizations Name Administration [...] Sign Reading Time Taken Comments Blood Pressure 114/80 10/25/2024 4:11 PM EDT Pulse 71 10/25/2024 3:57 PM EDT Temperature - - Respiratory Rate - - Oxygen Saturation - - Inhaled Oxygen Concentration - - Weight 142 kg (313 lb 12.8 oz) 10/25/2024 3:57 P M EDT Height 160 cm (5' 3 ) 10/25/2024 3:57 PM EDT Body Mass Index 55.59 10/25/2024 3:57 PM EDT Plan of Treatment Upcoming Encounters Date Type Department Care Team (Late st Contact Info) Description 05/02/2025 3:45 PM EST Office Visit Internal Medicine - [facility] [address] [place], [place] [phone] Darwin Bhatia MD [address] [place] [address] Health Maintenance Due Date Last Done Comments Hepatitis B Vaccines (1 of 3 - 19+ 3-dose series) 2001 Cervical Cancer Screening: Pap Smear 05/24/2021 05/24/2018 HIV Screening 02/15/2022 Hepatitis C Screening 02/15/2022 COVID-19 Vaccine ( season) 2023 01/11/2022, 01/02/2021, 06/09/2020, Additional history exists Depression Screening 03/09/2024 Influenza Vaccine (#1) 2024 2, 12/12/2020, 03/15/2020, Additional history exists Hypertension/CHF/CAD Annual BMP Blood Test 06/14/2025 06/14/2024, 04/27/2024, 07/04/2022 Social Influencers of Health Screening 10/25/2025 10/25/2024 DTaP,Tdap,and Td Vaccines (3 - Td or Tdap) 01/15/2026 01/16/2016, 11/27/2014 Breast Cancer Screening 02/04/2026 02/05/2024 Cholesterol Screening (Lipid Panel) 04/27/2029 04/27/2024, 07/04/2022 [...] Procedure Name Priority Date/Time Associated Diagnosis Comments EXTERNAL CLINICAL LAB 2024 BASIC METABOLIC PANEL Routine 06/14/2024 4:32 PM EDT Primary hypertension LIPID PANEL WITH REFLEX TO DIRECT LDL Routine 04/27/2024 11:29 AM EST Mixed hyperlipidemia HM PAP SMEAR Routine 05/24/2018 from Last 3 Months or Most Recently Relevant to Health Maintenance Results * External clinical lab (2024) us Provider [facility] LAB BLOOD ORDERABLES Fin al Result * Basic metabolic panel (06/14/2024 4:32 PM EDT) Sodium 140 133 - 145 mmol/L LAB CHEMISTRY METHOD 06/14/2024 7:10 PM [facility] Potassium 4.1 3.5 - 5.5 mmol/L LAB CHEMISTRY METHOD 06/14/2024 7:10 PM [facility] Chloride 105 96 - 110 mmol/L LAB CHEMISTRY METHOD 06/14/2024 7:10 PM [facility] CO2 32 21 - 32 mmol/L LAB CHEMISTRY METHOD 06/14/2024 7:10 PM [facility] Anion Gap 3 3 - [...] 06/14/2024 7:10 PM [facility] eGFR 115 >=60 mL/min/1. 73m2 [...] [facility] LAB BLOOD ORDERABLES Fi nal Result [facility] [address] [place] [address], [place] [phone] * (ABNORMAL) Lipid panel with reflex to direct LDL (04/27/2024 11:29 AM EST) Cholesterol 187 0 - 200 mg/dL LAB CHEMISTRY METHOD 04/27/2024 2:48 PM EST [facility] Triglycerides 122 0 - 150 mg/dL LAB CHEMISTRY METHOD 04/27/2024 2:48 PM EST [facility] HDL 42 >=40 mg/dL LAB CHEMISTRY METHOD 04/27/2024 2:48 PM EST [facility] LDL Calculated 121(H) 0 - 100 mg/dL LAB CHEMISTRY METHOD 04/27/2024 2:48 PM EST [facility] VLDL Cholesterol Yariel 24.4 mg/dL LAB CHEMISTRY METHOD 04/27/2024 2:48 PM EST [facility] Non HDL Chol. (LDL+VLDL) 145(H) <145 mg/dL LAB CHEMISTRY METHOD 04/27/2024 2:48 PM EST [facility] Chol/HDL Ratio 4.5(H) 0.0 - 4.4 LAB CHEMISTRY METHOD 04/27/2024 2:48 PM EST [facility] Blood Venous blood specimen / Unknown Venipuncture / Unknown 04/27/2024 11:29 AM EST 04/27/2024 11:29 AM EST us Darwin Bhatia MD LAB BLOOD ORDERABLES Final Resu lt [facility] [address] [place] [address], [place] [phone] * Pap Smear (05/24/2018) Pap smear Normal, abstracted Historical Provider MD HEALTH MAINTENANCE Final Result from Last 3 Months or Most Recently Relevant to Health Maintenance Insurance [facility] Care Teams Repair Specialist Relationship Specialty Start Date End Date Darwin Bhatia MD [facility] [id number] PCP - General Internal Medicine 02/07/21
--- OUTSIDE RECORDS SUMMARY | 2024-10-28 10:26 | XMS_ITS | Clinical Summary ---
Author Organization [facility] [employer] Address [address] [place] [address] Care Team Providers Care Carbide Operator Name Role Phone No, Pcp RESIST COATER DEVELOPER Primary Care Provider Unavailabl e Allergies Active [...] Adults 18 yrs or above (or HM Modifier)([facility]) 2000 Hepatitis C Virus Infection in Adolescents and Adults: Screening (or Modifier) ([facility]) 2000 SDOH Screening Reminder: Annually for all adults ([facility]) 2000 Tobacco Smoking Cessation: i n Adults excluding Women: Behavioral and Pharmacotherapy Interventions ([facility]) 2000 Cervical Cancer Screenin-65 yrs of age (or Modifier) 09/21/2003 Cervical Cancer Screening: P ap every 3 yrs pts age 21-65 09/21/2003 Cervical Cancer: Pap Screeni ng with Modifier timing ([facility]) 09/21/2003 Cervical Cancer: hrHPV alone or with cotesting Pap for Pts 30-65yrs screening every 5yrs ([facility]) 09/21/2003 COVID-19 Vaccine Screening: Initial Series and Booster Status ([facility]) (2023- season) 2023 06/09/2020, 05/12/2020 Flu Vaccination: Yearly for ages 18mos through 64 years (or Modifier)([facility]) 10/07/2024 DTaP/Tdap/Td Vaccines ([facility]) (2 - Td or Tdap) 11/27/2024 11/27/2014 Zoster/Shingles Vaccine Seri es Screening: Adults aged 18+ yrs (or HM Modifiers)([facility]) (1 of 2) 2032 Pneumococcal Vaccination Screening: Pts 0-19 & 19-49 yrs of age ([facility]) Aged Out No longer eligible based on patient's age to complete this topic [employer] Not on file Insurance [employer] Care Teams Carbide Operator Relationship Specialty Start Date End Date No, Pcp, RESIST COATER DEVELOPER N/A Do not use PCP - General 11/21/14
--- OUTSIDE RECORDS SUMMARY | 2024-10-28 10:26 | XMS_ITS ---
Author Name [place] Organization Unknown Care Team Organization Name Specialty Phone Email Start Date End Da te [facility] Ling Lyons Primary [facility] 11/13/202210/25 [facility] Termed, PROVIDER Primary Care 01/14/202210/07
== END 2024-10-28 10:27 | disposition home or self-care (01) ==
LOC: HO.HBS 10:24
PROVIDERS: PCP Internal Medicine; Visit Provider Physician Assistant Surgical
DX: E66.01 Morbid (severe) obesity due to excess calories (principal); Z68.43 Body mass index [BMI] 50.0-59.9, adult; Z98.84 Bariatric surgery status; Z90.3 Acquired absence of stomach [part of]
CPT/HCPCS: 98967

== ENCOUNTER → 2024-10-28 10:24 | Outpatient (BNVA) | payer BC, SELFPAY | PROVIDERS: PCP Internal Medicine; Visit Provider Physician Assistant Surgical | DX: Z98.84 Bariatric surgery status (principal) | CPT/HCPCS: 98967 ==